=== PATIENT | female | born 1955 | race Caucasian/White ===

== ENCOUNTER 2017-07-11 16:10 | Inpatient (IN) ==
[2017-07-11] MEDS ORDERED: Ondansetron 4 MG/2 ML VIAL IVP ONE (17:03)
[2017-07-11] MEDS ORDERED: 0.9 % Sodium Chloride 1,000 ML IVC ONE (17:03)
[2017-07-11] MEDS ORDERED: *HR* FentaNYL (PF) 100 MCG/2 ML VIAL IVP ONE (17:03)
--- NOTE | 2017-07-11 17:06 | Emergency Department Note ---
Disposition Clinical Impression: Weakness Urinary tract infection Qualifiers: Urinary tract infection type: site unspecified Hematuria presence: without hematuria Qualified Code(s): N39.0 - Urinary tract infection, site not specified Urolithiasis Qualifiers: Urinary calculus location: ureter Qualified Code(s): N20.1 - Calculus of ureter Disposition: Admitted As Inpatient Condition: Undetermined Referrals: Joshua Arana MD [Primary Care Provider] - Forms: Work/School Release, ED Satisfaction Letter Abdominal Pain HPI - General Chief Complaint: ED Urogenital-Female Stated Complaint: flank pain Time Seen by Provider: 07/11/17 16:39 Source: patient Mode of arrival: ambulatory Limitations: no limitations Nursing Notes Reviewed: Yes Vital Signs Reviewed: Yes - History of Present Illness HPI Narrative: 62-year-old female with history of UTI, right [facility] emergency department complaining of right flank pain radiating down into her right lower quadrant. The patient states she has had associated nausea and vomiting as well as diarrhea. Patient denies any fevers that are measured but definitely notes chills. The patient says she has been falling over the past couple days as well. The patient has no obvious signs of trauma on her face and neck and complains of no associated head or neck pain. The patient denies any black or bloody stools. The patient states that this does not feel like her previous UTIs in the past. Patient denies any other complaints at this time. The patient is slightly somnolent but easily arousable. She states she feels very weak at this time. We will perform labs and imaging on the patient. Pt Subjective Complaint: abdominal pain Onset (ago): day(s) (1.5) Consistency: constant, Worsening Location: RLQ, R flank Pain Severity: moderate, severe Pain Scale: 10 Quality: stabbing Radiation: none Migration to: no migration Improves with: nothing Worsens with: nothing Associated symptoms: Reports: nausea, vomiting, diarrhea, chills, anorexia. Denies: fever - Related Data Home Medications Medication Instructions Recorded Confirmed ARIPiprazole [Abilify] 2 mg PO HS 02/18/17 02/18/17 FLUoxetine HCl [Prozac] 20 mg PO DAILY 02/18/17 02/18/17 HYDROcodone/Acet 5/325 mg [[place] 1 tab PO BID PRN 02/18/17 02/18/17 5-325 mg] Metoprolol [Lopressor] 25 mg PO BID 02/18/17 02/18/17 Promethazine [Phenergan] 25 mg PO TID PRN 02/18/17 02/18/17 Ranitidine HCl [Zantac] 150 mg PO BID 02/18/17 02/18/17 amLODIPine [Norvasc] 5 mg PO DAILY 02/18/17 02/18/17 clonazePAM [Klonopin] 0.5 mg PO QID PRN 02/18/17 02/18/17 Previous Rx's Medication Instructions Recorded Clindamycin [Cleocin] 150 mg PO Q6HR #7 capsule 02/17/17 HYDROcodone/Acet 5/325 mg [[place] 1 tab PO Q6H PRN #14 tab 02/17/17 5-325 mg] Allergies Allergy/AdvReac Type Severity Reaction Status Date / Time codeine AdvReac See Verified 07/11/17 16:21 Comments naproxen AdvReac See Verified 07/11/17 16:21 Comments Oxycodone AdvReac See Verified 07/11/17 16:21 Comments All systems ED: reviewed and negative except as stated. Constitutional: Reports: chills, weakness. Denies: fever, weight change Eyes: Denies: eye pain, eye discharge, vision change ENT ED: Denies: ear pain, throat pain, dental pain, hearing loss, epistaxis, congestion, dysphagia Cardiovascular: Denies: chest pain, palpitations, dyspnea on exertion, edema, syncope Respiratory: Denies: cough, dyspnea, wheezes, hemoptysis, stridor Gastrointestinal: Reports: abdominal pain, nausea, vomiting, diarrhea. Denies: constipation, hematemesis, melena, hematochezia Genitourinary: Reports: dysuria. Denies: urgency, frequency, hematuria, discharge Musculoskeletal: Denies: back pain, neck pain, arthralgia, myalgia Integumentary: Denies: rash, abrasion, lesions Neurological: Reports: weakness. 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 Psychiatric history: Reports: anxiety, depression, panic disorder - Social History Smoking status: Former smoker Alcohol use: Reports: none Drug use: Reports: none Physical Exam - General Limitations: no limitations General appearance: alert, in no apparent distress, other (Slightly somnolent) - Head Head exam: atraumatic, normocephalic, normal inspection - Eye Eye exam: Present: normal appearance, PERRL, EOMI - ENT ENT exam: normal exam, normal oropharynx, mucous membranes moist - Neck Neck exam: Present: normal inspection, full ROM, trachea midline - Chest Chest inspection: Present: normal inspection, symmetric chest wall rise - Respiratory Respiratory exam: Present: normal lung sounds bilaterally - Cardiovascular Cardiovascular exam: Present: normal rhythm, tachycardia, normal heart sounds - Abdominal Exam Abdominal exam: Present: soft, tenderness. Absent: distention, guarding, rebound, rigidity, pulsatile mass, hernia Abdominal tenderness: Present: RUQ, RLQ, moderate, severe - Extremities Exam Extremities exam: Present: normal inspection, full ROM. Absent: tenderness, pedal edema Course - Consultations Consultation #1: I spoke with Dr. Rivero in urology who agreed that he will likely see the patient will floor upon admission. He had no further recommendations at this time. Time: 18:51 Vital Signs Temperature 99.3 F 07/11/17 16:18 Pulse Rate 108 07/11/17 16:18 Respiratory Rate 16 07/11/17 16:18 Blood Pressure 154/80 07/11/17 16:18 O2 Sat by Pulse Oximetry 96 07/11/17 16:18 Temperature 99.3 F 07/11/17 16:18 Pulse Rate 108 07/11/17 17:26 Respiratory Rate 18 07/11/17 17:26 Blood Pressure 121/76 07/11/17 17:26 O2 Sat by Pulse Oximetry 96 07/11/17 16:18 Abdominal Pain - MDM Narrative Medical decision making narrative: Patient has a 3 mm obstructing stone noted on CT scan. The patient also was noted to have a urinary tract infection with leukocytosis. There is no lactic acidosis that is elevated. We will admit the patient to the hospitalist at this time. Urology will be consulted on the patient. The patient was given 1 g Rocephin. The patient is otherwise well-appearing at this time. CT scan of the head demonstrates no acute process. The patient was also noted to have a common bile duct dilation on CT scan of unknown origin. The patient has a history of cholecystectomy. Patient made aware and agrees to plan. Family, granddaughters, made aware as well and also agreed to plan. No further recommendations. Accepted by Dr. Arias. - Lab Data Lab results reviewed: Yes I reviewed the patient's lab results. Result diagrams: 07/11/17 17:22 07/11/17 17:22 Lab Results 07/11/17 07/11/17 07/11/17 Range/Units 17:22 17:22 17:22 WBC 13.6 H (4.3-11.1) K/mcL RBC 4.39 (3.82-4.97) M/mcL Hgb 12.9 (11.5-15.4) g/dL Hct 38.8 (35.3-44.9) % MCV 88.4 (83.0-100.0) fL MCH 29.4 (28.0-33.3) pg MCHC 33.2 (31.6-35.5) g/dL RDW 13.8 (11.5-14.5) % Plt Count 224 (140-400) K/mcL MPV 10.8 (9.4-12.4) fL Immature Gran % 0.4 (0-4) % Seg Neutrophils % 87.5 % Lymphocytes % 4.5 % Monocytes % 7.5 % Eosinophils % 0.0 % Basophils % 0.1 % Neutrophils # 11.9 H (1.6-8.9) K/mcL Lymphocytes # 0.6 (0.6-4.6) K/mcL Monocytes # 1.0 (0.0-1.3) K/mcL Eosinophils # 0.0 (0.0-0.6) K/mcL Basophils # 0.0 (0.0-0.2) K/mcL Sodium 134 L (136-145) mEq/L Potassium 3.7 (3.5-4.5) mEq/L Chloride 102 (98-109) mEq/L Carbon Dioxide 23 (19-29) mEq/L BUN 10 (7-20) mg/dL Creatinine 0.84 (0.57-1.11) mg/dL Est GFR ( Amer) > 60 (> 60) Est GFR (Non-Af Amer) > 60 (> 60) BUN/Creatinine Ratio 12 (6-26) Glucose 120 H (70-99) mg/dL Calculated Osmolality 278 L (280-300) Lactic Acid 1.8 (0.5-2.2) mmol/L Calcium 9.8 (8.6-10.8) mg/dL Total Bilirubin 0.7 (0.2-1.2) mg/dL AST 9 (5-34) Units/L ALT 8 (0-55) Units/L Alkaline Phosphatase 80 (38-126) Units/L Serum Total Protein 7.2 (6.0-8.3) g/dL Albumin 2.8 L (3.5-5.0) g/dL Globulin 4.4 H (2.4-3.5) g/dL Albumin/Globulin Ratio 0.6 L (1.1-2.2) Lipase < 10 (8-78) Units/L Urine Color (Yellow) Urine Clarity (Clear) Urine pH (5.0-8.0) pH Units Ur Specific [place] (1.010-1.025) Urine Protein (Neg-Trace) mg/dL Urine Glucose (UA) (Normal) mg/dL Urine Ketones (Negative) mg/dL Urine Blood (Negative) Urine Nitrite (Negative) Urine Bilirubin (Negative) Urine Urobilinogen (Normal) mg/dL Ur Leukocyte Esterase (Negative) Urine Microscopic RBC (0-3) per hpf Urine Microscopic WBC (0-3) per hpf Ur Squamous Epith Cells (None-Few) per lpf Urine Bacteria (None-Few) per hpf Hyaline Casts (None-Few) per lpf Ur Culture Indicated? (NO) 07/11/17 Range/Units 17:45 WBC (4.3-11.1) K/mcL RBC (3.82-4.97) M/mcL Hgb (11.5-15.4) g/dL Hct (35.3-44.9) % MCV (83.0-100.0) fL MCH (28.0-33.3) pg MCHC (31.6-35.5) g/dL RDW (11.5-14.5) % Plt Count (140-400) K/mcL MPV (9.4-12.4) fL Immature Gran % (0-4) % Seg Neutrophils % % Lymphocytes % % Monocytes % % Eosinophils % % Basophils % % Neutrophils # (1.6-8.9) K/mcL Lymphocytes # (0.6-4.6) K/mcL Monocytes # (0.0-1.3) K/mcL Eosinophils # (0.0-0.6) K/mcL Basophils # (0.0-0.2) K/mcL Sodium (136-145) mEq/L Potassium (3.5-4.5) mEq/L Chloride (98-109) mEq/L Carbon Dioxide (19-29) mEq/L BUN (7-20) mg/dL Creatinine (0.57-1.11) mg/dL Est GFR ( Amer) (> 60) Est GFR (Non-Af Amer) (> 60) BUN/Creatinine Ratio (6-26) Glucose (70-99) mg/dL Calculated Osmolality (280-300) Lactic Acid (0.5-2.2) mmol/L Calcium (8.6-10.8) mg/dL Total Bilirubin (0.2-1.2) mg/dL AST (5-34) Units/L ALT (0-55) Units/L Alkaline Phosphatase (38-126) Units/L Serum Total Protein (6.0-8.3) g/dL Albumin (3.5-5.0) g/dL Globulin (2.4-3.5) g/dL Albumin/Globulin Ratio (1.1-2.2) Lipase (8-78) Units/L Urine Color Yellow (Yellow) Urine Clarity Turbid A (Clear) Urine pH 5.5 (5.0-8.0) pH Units Ur Specific [place] 1.017 (1.010-1.025) Urine Protein 100 H (Neg-Trace) mg/dL Urine Glucose (UA) Normal (Normal) mg/dL Urine Ketones Negative (Negative) mg/dL Urine Blood Moderate H (Negative) Urine Nitrite Positive A (Negative) Urine Bilirubin Negative (Negative) Urine Urobilinogen Normal (Normal) mg/dL Ur Leukocyte Esterase Moderate H (Negative) Urine Microscopic RBC 15-30 H (0-3) per hpf Urine Microscopic WBC TNTC H (0-3) per hpf Ur Squamous Epith Cells Many H (None-Few) per lpf Urine Bacteria Many H (None-Few) per hpf Hyaline Casts None Seen (None-Few) per lpf Ur Culture Indicated? YES A (NO) - Radiology Data Radiology results reviewed: Yes I reviewed the patient's radiology results. - EKG Data EKG attestation: Yes I reviewed and interpreted this EKG. EKG results narrative: Heart rate 10 7 bpm. DE interval 138 ms. QTc 42 ms. Normal axis. Sinus tachycardia. No ST elevation or ST depression noted. No acute changes with the exception of new sinus tachycardia. Attestation Statement - Attestation Attestation: Patient was seen with resident physician. I reviewed the history, physical, assessment and plan, and agree with the findings. I also personally evaluated this patient and had [id number] time with this patient. 62-year-old female presents to the emergency department with chief complaint of right-sided abdominal pain. Patient states that the pain has been ongoing for last several days. She is recent history of UTI. She has had some nausea without vomiting no diarrhea. She denies fevers or chills. Patient also notes he she has had multiple falls over the last week or so falling approximately 3 times she is not sure if she lost consciousness but she says she does not think so. She is not sure why she has been falling more recently. On examination vital signs are stable. ENT is demonstrates a mild bruise at the bridge of the nose and also over the left cheek bone. There is no step-offs is no tenderness to palpation. Neck is nontender to palpation back is nontender to palpation. Heart lungs are normal. Abdomen is soft there is tenderness especially in the right upper and lower quadrants. There is no guarding or rigidity. Extremities are unremarkable. Neurologically the patient is intact. [place] we will check labs including abdominal labs and a CT scan of the abdomen and pelvis to rule out abnormalities. CT scan revealed obstructing renal stone, additionally patient has UTI. Discussed the case with urology, will admit to internal medicine and have urology see patient in the hospital. Hemodynamically patient did well while in the emergency department but she will require antibiotic therapy and possible urologic intervention. We also treated the patient's nausea while in the emergency department. Agree with the resident physician assessment and plan.
[2017-07-11 17:31] LABS: Basophils % 0.1 %; Hematocrit 38.8 % (35.3-44.9); Hemoglobin 12.9 g/dL (11.5-15.4); Immature Granulocytes % 0.4 % (0-4); Lymphocytes # 0.6 K/mcL (0.6-4.6); Lymphocytes % 4.5 %; Mean Corpuscular HGB Conc 33.2 g/dL (31.6-35.5); Mean Corpuscular Hemoglobin 29.4 pg (28.0-33.3); Mean Corpuscular Volume 88.4 fL (83.0-100.0); Mean Platelet Volume 10.8 fL (9.4-12.4); Monocytes % 7.5 %; Neutrophils # 11.9 K/mcL (1.6-8.9); Platelet Count 224 K/mcL (140-400); Red Blood Count 4.39 M/mcL (3.82-4.97); Red Cell Distribution Width 13.8 % (11.5-14.5); Segmented Neutrophils % 87.5 %
[2017-07-11 17:46] LABS: Alanine Aminotransferase 8 Units/L (0-55); Albumin 2.8 g/dL (3.5-5.0); Albumin/Globulin Ratio 0.6 (1.1-2.2); Alkaline Phosphatase 80 Units/L (38-126); Aspartate Amino Transferase 9 Units/L (5-34); BUN/Creatinine Ratio 12 (6-26); Bilirubin,Total 0.7 mg/dL (0.2-1.2); Blood Urea Nitrogen 10 mg/dL (7-20); Calcium 9.8 mg/dL (8.6-10.8); Carbon Dioxide 23 mEq/L (19-29); Chloride 102 mEq/L (98-109); Globulin 4.4 g/dL (2.4-3.5); Glucose 120 mg/dL (70-99); Osmolality,Calculated 278 (280-300); Potassium 3.7 mEq/L (3.5-4.5); Sodium 134 mEq/L (136-145); Total Protein 7.2 g/dL (6.0-8.3); eGFR For African Americans > 60 (> 60); eGFR For Non-African Americans > 60 (> 60)
[2017-07-11 17:51] LABS: Lipase < 10 Units/L (8-78)
[2017-07-11 17:52] LABS: Bilirubin,Urine Negative (Negative); Blood,Urine Moderate (Negative); Clarity,Urine Turbid (Clear); Color,Urine Yellow (Yellow); Glucose,Urine (UA) Normal (Normal); Ketones,Urine Negative (Negative); Leukocyte Esterase,Urine Moderate (Negative); Nitrite,Urine Positive (Negative); PH,Urine 5.5 pH Units (5.0-8.0); Protein,Urine 100 mg/dL (Neg-Trace); Specific Gravity,Urine 1.017 (1.010-1.025); Urobilinogen,Urine Normal (Normal)
[2017-07-11 17:54] LABS: Bacteria,Urine Many per hpf (None-Few); Hyaline Casts,Urine None Seen per lpf (None-Few); RBC,Urine 15-30 per hpf (0-3); Squamous Epithelial Cell,Urine Many per lpf (None-Few); WBC,Urine TNTC per hpf (0-3)
[2017-07-11] MEDS ORDERED: Lidocaine -MPF 2% 2 ML VIAL ONE (19:36)
[2017-07-11] MEDS ORDERED: Ondansetron 4 MG/2 ML VIAL ONE (19:36)
[2017-07-11] MEDS ORDERED: Dexamethasone 4 MG/ML VIAL ONE (19:36)
[2017-07-11] MEDS ORDERED: *HR* FentaNYL (PF) 100 MCG/2 ML VIAL ONE (19:37)
[2017-07-11] MEDS ORDERED: *HR* Propofol 200 MG/20 ML VIAL IVP ONE (19:37)
[2017-07-11] MEDS ORDERED: *HR* HYDROcodone/Acet 5/325 mg TABLET PO PRN (20:02)
[2017-07-11] MEDS ORDERED: clonazePAM 0.5 MG TABLET PO PRN ×2 (20:02→22:12)
[2017-07-11] MEDS ORDERED: Naloxone 0.4 MG/ML INJ IVP PRN ×2 (20:03→22:12)
--- NOTE | 2017-07-11 20:03 | Urology - Consult Note ---
Date of Encounter: 07/11/17 Time of Encounter: 20:01 - Assessment and Plan (1) Urinary tract infection Current Visit: Yes Status: Acute Assessment and plan: 62-year-old woman with a urinary tract infection and obstructing ureteral stone. She has been given a dose of ceftriaxone. We'll follow up on her urine cultures. Qualifiers: Urinary tract infection type: site unspecified Hematuria presence: without hematuria Qualified Code(s): N39.0 - Urinary tract infection, site not specified (2) Urolithiasis Current Visit: Yes Status: Acute Assessment and plan: 62-year-old woman with a history of a right proximal ureteral stone. She has been admitted for IV antibiotic. Recommend proceeding with a cystoscopy and right ureteral stent placement. She was informed of the risks of the surgery which include but are not limited to bleeding, infection, injury to other structures, need for further procedures, stent irritation, need for open repair , need for nephrostomy tube, risks otherwise unforeseen, and the risk of anesthesia. She is willing to proceed. Qualifiers: Urinary calculus location: ureter Qualified Code(s): N20.1 - Calculus of ureter Urology CN:[facility] Consult date: 07/11/17 Reason for consult Urology: Other (Right ureteral stone) Requesting physician: Gregory Spears History of present illness: 62-year-old woman presents with concern for right flank pain and a urinary tract infection. The pain became very sharp today. It radiates to the groin on the right side. She has never had a pain like this before. She has noted some nausea associated with it. She feels very weak. She came to the emergency department. A CT scan was obtained which showed a 3 mm right proximal ureteral stone. In addition she had an elevated white blood cell count and concern for urinary tract infection. She was admitted for further care. Past Med Surg Social Fam HX - Past Medical History Medical history: GERD, hyperlipidemia, hypertension, migraine, seizures Psychiatric history: anxiety, depression, panic disorder - Social History Smoking Status: Former smoker Smokeless Tobacco Status: No Alcohol use: none Drug use: none - Family History Brother Hx Family Genitourinary Disorders: Yes (Kidney stones) Medications and Allergies Clindamycin [Cleocin] 150 mg PO Q6HR #7 capsule 02/17/17 [Rx] HYDROcodone/Acet 5/325 mg [[place] 5-325 mg] 1 tab PO Q6H PRN #14 tab 02/17/17 [Rx ] ARIPiprazole [Abilify] 2 mg PO HS 02/18/17 [History] FLUoxetine HCl [Prozac] 20 mg PO DAILY 02/18/17 [History] HYDROcodone/Acet 5/325 mg [[place] 5-325 mg] 1 tab PO BID PRN 02/18/17 [History] Metoprolol [Lopressor] 25 mg PO BID 02/18/17 [History] Promethazine [Phenergan] 25 mg PO TID PRN 02/18/17 [History] Ranitidine HCl [Zantac] 150 mg PO BID 02/18/17 [History] amLODIPine [Norvasc] 5 mg PO DAILY 02/18/17 [History] clonazePAM [Klonopin] 0.5 mg PO QID PRN 02/18/17 [History] 3 Allergy/AdvReac Type Severity Reaction Status Date / Time codeine AdvReac See Verified 07/11/17 16:21 Comments naproxen AdvReac See Verified 07/11/17 16:21 Comments Oxycodone AdvReac See Verified 07/11/17 16:21 Comments Review of Systems - Constitutional fatigue, no chills, no fever(s) - EENT Nose, mouth and throat: no dizziness - Cardiovascular no chest pain - Respiratory no dyspnea - Gastrointestinal nausea, no vomiting - Genitourinary Genitourinary: flank pain, no hematuria - Musculoskeletal no back pain - Integumentary no erythema, no rash - Neurological no weakness - Psychiatric no suicidal ideation - Hematologic/Lymphatic no easy bleeding - Allergic/Immunologic no wheezing Exam Initial Vital Signs Temp Pulse Resp BP Pulse Ox 99.3 F 108 16 154/80 96 07/11/17 16:18 07/11/17 16:18 07/11/17 16:18 07/11/17 16:18 07/11/17 16:18 - General physical appearance Present: well developed, well nourished, no distress - Eyes Absent: icteric - ENT Present: normal nares - Neck Present: trachea midline - Respiratory Present: normal respiratory effort - Cardiovascular Cardiovascular exam IM: RRR - Abdomen Abdomen: Present: soft Urology Results - Labs 07/11/17 17:22 07/11/17 17:22 Abnormal lab results WBC 13.6 K/mcL (4.3-11.1) H 07/11/17 17:22 Neutrophils # 11.9 K/mcL (1.6-8.9) H 07/11/17 17:22 Sodium 134 mEq/L (136-145) L 07/11/17 17:22 Glucose 120 mg/dL (70-99) H 07/11/17 17:22 Calculated Osmolality 278 (280-300) L 07/11/17 17:22 Albumin 2.8 g/dL (3.5-5.0) L 07/11/17 17:22 Globulin 4.4 g/dL (2.4-3.5) H 07/11/17 17:22 Albumin/Globulin Ratio 0.6 (1.1-2.2) L 07/11/17 17:22 Urine Clarity Turbid (Clear) A 07/11/17 17:45 Urine Protein 100 mg/dL (Neg-Trace) H 07/11/17 17:45 Urine Blood Moderate (Negative) H 07/11/17 17:45 Urine Nitrite Positive (Negative) A 07/11/17 17:45 Ur Leukocyte Esterase Moderate (Negative) H 07/11/17 17:45 Urine Microscopic RBC 15-30 per hpf (0-3) H 07/11/17 17:45 Urine Microscopic WBC TNTC per hpf (0-3) H 07/11/17 17:45 Ur Squamous Epith Cells Many per lpf (None-Few) H 07/11/17 17:45 Urine Bacteria Many per hpf (None-Few) H 07/11/17 17:45 Ur Culture Indicated? YES (NO) A 07/11/17 17:45 All other labs normal. - Imaging CT scan - abdomen: report reviewed, image reviewed CT scan - pelvis: report reviewed, image reviewed Consult Discharge Plan - Plan Referrals: Joshua Arana MD [Primary Care Provider] -
[2017-07-11] MEDS ORDERED: 0.9 % Sodium Chloride 1,000 ML IVC SCH (20:15)
--- NOTE | 2017-07-11 20:16 | Internal Med History&Physical ---
Date of Encounter: 07/11/17 Time of Encounter: 20:13 Assessment and Plan (1) Pyelonephritis, acute Current visit: Yes Status: Acute IVF, IV rocephin, urine cx pending (2) Urolithiasis Current visit: Yes Status: Acute seen by urology, pending surgical eval, NPO for now, IV morphine for pain control Qualifiers: Urinary calculus location: ureter Qualified Code(s): N20.1 - Calculus of ureter (3) HTN (hypertension), benign Current visit: Yes Status: Acute stable continue med Internal Medicine - H&P: HPI Chief complaint: Right flank pain History of present illness: Ms. Avelar is a 62 year old female with a hx of recurrent UTI who presents with clinical pyelonephritis and small right 3mm renal stone. She reports a hx of recurrent UTI and presents with a few days hx of right flank pain described as sharp, 10/10, little radiation. Reported subjective chills/fevers in the last few days. Noted dysuria on urination. ED d/w urology Dr Rivero with plans for surgical management of stone disease CT/CT head/brain wo con IMPRESSION: No acute intracranial abnormality. CT/CT abd pelvis wo no iv no oral IMPRESSION: Obstructing 3 mm proximal right ureteral stone with mild right hydronephrosis and right perinephric inflammatory changes consistent with acute obstructive uropathy. Dilated common bile duct of uncertain etiology. Recommend correlation with LFTs. Past Med Surg Social Fam HX - Past Medical History Medical history: GERD, hyperlipidemia, hypertension, migraine, seizures Psychiatric history: anxiety, depression, panic disorder - Social History Smoking Status: Former smoker Smokeless Tobacco Status: No Alcohol use: none Drug use: none - Family History Brother Hx Family Genitourinary Disorders: Yes (Kidney stones) Internal Medicine - H&P: Meds Clindamycin [Cleocin] 150 mg PO Q6HR #7 capsule 02/17/17 [Rx] HYDROcodone/Acet 5/325 mg [[place] 5-325 mg] 1 tab PO Q6H PRN #14 tab 02/17/17 [Rx ] ARIPiprazole [Abilify] 2 mg PO HS 02/18/17 [History] FLUoxetine HCl [Prozac] 20 mg PO DAILY 02/18/17 [History] HYDROcodone/Acet 5/325 mg [[place] 5-325 mg] 1 tab PO BID PRN 02/18/17 [History] Metoprolol [Lopressor] 25 mg PO BID 02/18/17 [History] Promethazine [Phenergan] 25 mg PO TID PRN 02/18/17 [History] Ranitidine HCl [Zantac] 150 mg PO BID 02/18/17 [History] amLODIPine [Norvasc] 5 mg PO DAILY 02/18/17 [History] clonazePAM [Klonopin] 0.5 mg PO QID PRN 02/18/17 [History] 3 Allergy/AdvReac Type Severity Reaction Status Date / Time codeine AdvReac See Verified 07/11/17 16:21 Comments naproxen AdvReac See Verified 07/11/17 16:21 Comments Oxycodone AdvReac See Verified 07/11/17 16:21 Comments All Systems PM: A 10-system review of systems was performed and is negative for pertinent findings except as documented above in the HPI. Review of systems: ROS 14 point review of systems reviewed as best as possible given presentation. Pertinent positive or negative as per HPI or otherwise reviewed as negative - Constitutional Vitals: Temp Pulse Resp BP Pulse Ox 100.8 F H 101 16 99/63 92 07/11/17 20:05 07/11/17 20:05 07/11/17 20:05 07/11/17 20:05 07/11/17 20:05 Exam: General - AAO x 3 Psych - Appropriate affect/speech. No agitation Eyes - IVETTE. Eye lids intact. No scleral icterus Neuro - No gross peripheral or central neuro deficits Heart - Sinus. RRR. S1 and S2 present. No added HS/murmurs appreciated. No elevated JVD appreciated. Lung - Adequate air entry b/l, No crackles/wheezes appreciated GI - Soft, non-tender. No hepatosplenomegaly/ascites. BS+ - right flank pain. No suprapubic pain Skin - Intact. No rash/petechiae/ecchymosis. Warm extremities MSK - Joints with normal ROM. No joint swellings Internal Med - H&P Results - Labs CBC & Chem 7: 07/11/17 17:22 07/11/17 17:22
[2017-07-11] MEDS ORDERED: *HR* Morphine 2 MG/ML SYRINGE IVP PRN ×2 (20:19→22:12)
--- NOTE | 2017-07-11 20:27 | Anesthesia Evaluation PreOp ---
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: Seizures (remote), Other (anxiety, depression) Other Medical History: Renal (stones) Anesthesia History: No Prior Anesthetic Complications Alcohol Use: none Drug use: none Medications and Allergies Clindamycin [Cleocin] 150 mg PO Q6HR #7 capsule 02/17/17 [Rx] HYDROcodone/Acet 5/325 mg [[place] 5-325 mg] 1 tab PO Q6H PRN #14 tab 02/17/17 [Rx ] ARIPiprazole [Abilify] 2 mg PO HS 02/18/17 [History] FLUoxetine HCl [Prozac] 20 mg PO DAILY 02/18/17 [History] HYDROcodone/Acet 5/325 mg [[place] 5-325 mg] 1 tab PO BID PRN 02/18/17 [History] Metoprolol [Lopressor] 25 mg PO BID 02/18/17 [History] Promethazine [Phenergan] 25 mg PO TID PRN 02/18/17 [History] Ranitidine HCl [Zantac] 150 mg PO BID 02/18/17 [History] amLODIPine [Norvasc] 5 mg PO DAILY 02/18/17 [History] clonazePAM [Klonopin] 0.5 mg PO QID PRN 02/18/17 [History] 3 Allergy/AdvReac Type Severity Reaction Status Date / Time codeine AdvReac See Verified 07/11/17 16:21 Comments naproxen AdvReac See Verified 07/11/17 16:21 Comments Oxycodone AdvReac See Verified 07/11/17 16:21 Comments - Meds/Allergy Pre-op Review Medications Reviewed: Yes Allergies Reviewed: Yes Beta Blockers on Current Med List: Yes Anesthesia Results - Labs 07/11/17 17:22 07/11/17 17:22 - Imaging EKG: report reviewed, image reviewed (SR; marked LAD) Anesthesia Exam Last Vital Signs Temp 100.8 F H 07/11/17 20:05 Pulse 101 07/11/17 20:05 Resp 16 07/11/17 20:05 BP 99/63 07/11/17 20:05 Pulse Ox 92 07/11/17 20:05 Weight: 46 kg NPO (# of Hours): >> 8 hrs - HEENT Pupil (Motor): Pupils equal, EOMI Mallampati: II Teeth: Edentulous Oral Opening: Greater than 3 - ACCOUNTING RECRUITER LOC: Oriented ACCOUNTING RECRUITER Motor: Normal RUE, Normal LUE, Normal RLE, Normal LLE, Normal Face - Cardiac Rhythm: Regular Murmur: None - Pulmonary Breath Sounds: bilateral Clear Respiratory Effort: Symmetrical Anesthesia Assess/Plan ASA Score: 2 Modified [place] Scale for Level of Consciousness: Cooperative, oriented, and tranquil Anesthetic Plan: General Monitoring Plan: Standard Monitors Recovery Plan: PACU
--- NOTE | 2017-07-11 20:31 | Operative Note ---
Date of procedure: 07/11/17 Pre-op diagnosis: Right ureteral stone Post-op diagnosis: same Procedure: Cystoscopy, right ureteral stent placement. Implants: 6 Filipino by 24 cm double-J stent. Complications: none. Anesthesia: MAIRA Surgeon: Fausto Rivero Estimated blood loss (cc): 1 Specimen: Right renal aspirate for culture Condition: stable Disposition: PACU Procedure in Detail: Indications: Karen is a 62-year-old woman who has a history of nephrolithiasis. She had a CT which showed a right proximal ureteral stone and there is concern for a urinary tract infection. She elected to undergo a cystoscopy and right ureteral stent placement. She was aware of the risks of the procedure including but not limited to bleeding, infection, injury to other structures, need for further procedures, stent irritation, need for nephrostomy tube, need for open repair, risks otherwise unforeseen, and the risk of anesthesia. She is willing to proceed. Procedure in Detail: After informed consent was obtained the patient was brought back to the operating room and placed in supine position. A time out was performed. General anesthesia was administered and an endotracheal tube was placed. She was then placed in the lithotomy position. She was prepped and draped in the usual sterile fashion. Cystoscopy was performed. The anterior urethra was normal. There was no evidence of bladder tumors. The ureteral orifices were in the normal orthotopic position. There was no duplication of the ureteral orifices. The Zip wire was placed in the right ureteral orifice and brought into the kidney under fluoroscopic guidance. The open-ended catheter was placed over the wire into the kidney. An aspirate of urine from the kidney was obtained. A retrograde pyelogram was performed. The wire was then brought up into the kidney under fluoroscopic guidance. The open ended catheter was removed. A 6 Filipino by 24cm JJ stent was then placed. The dangle strings were removed. A Xiong catheter was then placed. The patient was then awakened from general anesthesia and brought to recovery room in good condition. All sponge, needle, and instrument counts were correct.
[2017-07-11] MEDS ORDERED: *HR* Phenylephrine 10 MG/ML VIAL ONE (20:48)
[2017-07-11] MEDS ORDERED: ARIPiprazole 2 MG TABLET PO SCH (21:00)
[2017-07-11] MEDS ORDERED: Famotidine 20 MG TABLET PO SCH (21:00)
[2017-07-11] MEDS ORDERED: *HR* Promethazine 25 MG/ML VIAL IVP PRN (21:25)
[2017-07-11] MEDS ORDERED: *HR* HYDROmorphone (PF) 1 MG/ML SYRINGE IVP PRN (21:25)
[2017-07-11] MEDS ORDERED: *HR* HYDROmorphone (PF) 1 MG/ML SYRINGE ONE (21:30)
[2017-07-11] MEDS ORDERED: *HR* Meperidine 25 MG/ML SYRINGE ONE (21:45)
[2017-07-11] MEDS ORDERED: Ringers Solution, Lactated 1,000 ML ONE (21:47)
[2017-07-11] MEDS ORDERED: Acetaminophen IV 1,000 MG/100 ML INFUS..BTL ONE (21:47)
--- NOTE | 2017-07-11 22:03 | Anesthesia Evaluation Post Op ---
Date of Encounter: 07/11/17 Time of Encounter: 22:03 - Vital Signs Vital Signs: Last Vital Signs Temp 101.5 F H 07/11/17 21:45 Pulse 108 07/11/17 21:55 Resp 30 07/11/17 21:55 BP 97/60 07/11/17 21:55 Pulse Ox 95 07/11/17 21:55 - Lungs Lungs: Clear Ascult./Percussion - Airway Airway: Non-obstructed - Cardiovascular Regular Rate - Mental Status Mental Status: Alert & Oriented, Answers Appropriately - Pain Pain Scale: 3 - Nausea Vomiting Nausea Vomiting: Not Present - Hydration Hydration: NPO, Xiong catheter - Discharge PostOp Status: Transfer Patient to floor
[2017-07-11] MEDS: *HR* HYDROcodone/Acet 5/325 mg TABLET PO PRN (22:56)
[2017-07-11] MEDS: 0.9 % Sodium Chloride 1,000 ML IVC SCH (23:01)
[2017-07-12 04:42] LABS: Basophils % 0.1 %; Hematocrit 31.7 % (35.3-44.9); Immature Granulocytes % 0.7 % (0-4); Lymphocytes # 0.7 K/mcL (0.6-4.6); Lymphocytes % 4.9 %; Mean Corpuscular HGB Conc 34.1 g/dL (31.6-35.5); Mean Corpuscular Hemoglobin 30.7 pg (28.0-33.3); Mean Corpuscular Volume 90.1 fL (83.0-100.0); Mean Platelet Volume 10.7 fL (9.4-12.4); Monocytes # 0.9 K/mcL (0.0-1.3); Monocytes % 5.7 %; Neutrophils # 13.2 K/mcL (1.6-8.9); Platelet Count 191 K/mcL (140-400); Red Blood Count 3.52 M/mcL (3.82-4.97); Red Cell Distribution Width 14.3 % (11.5-14.5); Segmented Neutrophils % 88.6 %
[2017-07-12 04:45] LABS: Hemoglobin 10.8 g/dL (11.5-15.4)
[2017-07-12 04:58] LABS: Alanine Aminotransferase 7 Units/L (0-55); Albumin/Globulin Ratio 0.6 (1.1-2.2); Alkaline Phosphatase 65 Units/L (38-126); Aspartate Amino Transferase 9 Units/L (5-34); BUN/Creatinine Ratio 12 (6-26); Bilirubin,Direct 0.2 mg/dL (0.0-0.5); Bilirubin,Indirect 0.2 mg/dL (0.0-1.2); Bilirubin,Total 0.4 mg/dL (0.2-1.2); Blood Urea Nitrogen 9 mg/dL (7-20); Calcium 8.9 mg/dL (8.6-10.8); Carbon Dioxide 24 mEq/L (19-29); Chloride 106 mEq/L (98-109); Globulin 3.6 g/dL (2.4-3.5); Glucose 142 mg/dL (70-99); Osmolality,Calculated 285 (280-300); Potassium 4.1 mEq/L (3.5-4.5); Sodium 137 mEq/L (136-145); Total Protein 5.8 g/dL (6.0-8.3); eGFR For African Americans > 60 (> 60); eGFR For Non-African Americans > 60 (> 60)
[2017-07-12 05:01] LABS: Albumin 2.2 g/dL (3.5-5.0)
[2017-07-12] MEDS ORDERED: *HR* Enoxaparin 40 MG/0.4 ML SYRINGE SQ SCH (06:00)
[2017-07-12] MEDS: *HR* Enoxaparin 40 MG/0.4 ML SYRINGE SQ SCH (06:17)
[2017-07-12] MEDS: *HR* HYDROcodone/Acet 5/325 mg TABLET PO PRN (07:23)
[2017-07-12] MEDS ORDERED: Famotidine 20 MG TABLET PO SCH (07:30)
--- NOTE | 2017-07-12 07:32 | Urology Progress Note ---
Date of Encounter: 07/12/17 Time of Encounter: 07:30 - Assessment and Plan (1) Urinary tract infection Current Visit: Yes Status: Acute Assessment and plan: 62 year old woman with a urinary tract infection and obstructing stone. Recommend continuing the catheter for now until afebriel x 24 hours. Qualifiers: Urinary tract infection type: site unspecified Hematuria presence: without hematuria Qualified Code(s): N39.0 - Urinary tract infection, site not specified (2) Urolithiasis Current Visit: Yes Status: Acute Assessment and plan: s/p right ureteral stent placement, POD #1. 1. Fever overnight. Continue antibiotics. Await final urine culture results. Will treat stone as an outpatient once infection has cleared. Qualifiers: Urinary calculus location: ureter Qualified Code(s): N20.1 - Calculus of ureter Progress Note Narrative: 62 year old woman with infected, obstructed right ureteral stone status post right ureteral stent, POD #1. She had a fever last night after surgery. Urine has been clear. Objective Initial Vital Signs Temp Pulse Resp BP Pulse Ox 99.3 F 108 16 154/80 96 07/11/17 16:18 07/11/17 16:18 07/11/17 16:18 07/11/17 16:18 07/11/17 16:18 - General physical appearance Present: well developed, well nourished, no distress - Respiratory Present: normal respiratory effort - Abdomen Present: soft - Genitourinary Urine Appearance: Present: Clear - Labs 07/12/17 04:34 07/12/17 04:34 Diabetes panel 07/12/17 Range/Units 04:34 Sodium 137 (136-145) mEq/L Potassium 4.1 (3.5-4.5) mEq/L Chloride 106 (98-109) mEq/L Carbon Dioxide 24 (19-29) mEq/L BUN 9 (7-20) mg/dL Creatinine 0.78 (0.57-1.11) mg/dL Glucose 142 H (70-99) mg/dL Calcium 8.9 (8.6-10.8) mg/dL AST 9 (5-34) Units/L ALT 7 (0-55) Units/L Alkaline Phosphatase 65 (38-126) Units/L Albumin 2.2 L D (3.5-5.0) g/dL Calcium panel 07/12/17 Range/Units 04:34 Calcium 8.9 (8.6-10.8) mg/dL Albumin 2.2 L D (3.5-5.0) g/dL Pituitary panel 07/12/17 Range/Units 04:34 Sodium 137 (136-145) mEq/L Potassium 4.1 (3.5-4.5) mEq/L Chloride 106 (98-109) mEq/L Carbon Dioxide 24 (19-29) mEq/L BUN 9 (7-20) mg/dL Creatinine 0.78 (0.57-1.11) mg/dL Glucose 142 H (70-99) mg/dL Calcium 8.9 (8.6-10.8) mg/dL Adrenal panel 07/12/17 Range/Units 04:34 Sodium 137 (136-145) mEq/L Potassium 4.1 (3.5-4.5) mEq/L Chloride 106 (98-109) mEq/L Carbon Dioxide 24 (19-29) mEq/L BUN 9 (7-20) mg/dL Creatinine 0.78 (0.57-1.11) mg/dL Glucose 142 H (70-99) mg/dL Calcium 8.9 (8.6-10.8) mg/dL Total Bilirubin 0.4 (0.2-1.2) mg/dL AST 9 (5-34) Units/L ALT 7 (0-55) Units/L Alkaline Phosphatase 65 (38-126) Units/L Albumin 2.2 L D (3.5-5.0) g/dL - VTE Documentation of Mechanical Device: Intermittent pneumatic compression device Consult Discharge Plan - Plan Referrals: Joshua Arana MD [Primary Care Provider] -
[2017-07-12] MEDS ORDERED: amLODIPine 5 MG TABLET PO SCH ×2 (09:00)
[2017-07-12] MEDS ORDERED: FLUoxetine 20 MG CAPSULE PO SCH ×2 (09:00)
[2017-07-12] MEDS ORDERED: Aminoglycoside Consult 1 EACH MC ONE (12:52)
[2017-07-12] MEDS ORDERED: Acetaminophen 325 MG TABLET PO ONE (15:26)
--- NOTE | 2017-07-12 16:31 | Internal Med Progress Note ---
Date of Encounter: 07/12/17 Time of Encounter: 14:00 - Assessment and plan (1) Sepsis Current Visit: Yes Status: Acute Assessment and plan: Pt does meet sepsis criteria with Fever, elevated WBC, Source of inf as UTI, Pyelonephritis + Bronchitis Changed abx to Zosyn Will do blood cx cont IV fluids Qualifiers: Qualified Code(s): A41.9 - Sepsis, unspecified organism (2) Acute respiratory failure with hypoxia Current Visit: Yes Status: Acute Assessment and plan: currently on 2 lit O2 Mostly due to acute bronchitis will get a CXR Duoneb Q4hr Sputum cx Abx Zosyn + If I see any infiltrates on CXR will add Levofloxacin for atypical coverage (3) Acute purulent bronchitis Current Visit: Yes Status: Acute Assessment and plan: see above (4) Urinary tract infection Current Visit: Yes Status: Acute Assessment and plan: changed abx to Zosyn Qualifiers: Urinary tract infection type: site unspecified Hematuria presence: without hematuria Qualified Code(s): N39.0 - Urinary tract infection, site not specified (5) Urolithiasis Current Visit: Yes Status: Acute Assessment and plan: s/p Cystoscopy and Rt ureter stent placement Urology on board Qualifiers: Urinary calculus location: ureter Qualified Code(s): N20.1 - Calculus of ureter (6) Pyelonephritis, acute Current Visit: Yes Status: Acute Assessment and plan: see above (7) HTN (hypertension), benign Current Visit: Yes Status: Acute (8) Tobacco dependence Current Visit: Yes Status: Acute Assessment and plan: counseled to quit smoking on nicotine patch - Subjective Interval history: Ms. Avelar is a 62 year old female with a hx of recurrent UTI who presents with clinical pyelonephritis and small right 3mm renal stone. She reports a hx of recurrent UTI and presents with a few days hx of right flank pain described as sharp, 10/10, little radiation. Reported subjective chills/fevers in the last few days. Noted dysuria on urination. ED d/w urology Dr Rivero with plans for surgical management of stone disease. Pt was admitted in the hospital for acute pyelonephritis and started her on empirical abx. She did go for cystoscopy with Rt ureter stent placement y/d. Today she still has fever spikes. Did c/o cough with expectoration. Denied any CP. Still has mild Rt flank pain. - Constitutional Vitals: Temp Pulse Resp BP Pulse Ox 102.3 F H 107 22 111/67 94 07/12/17 15:40 07/12/17 15:40 07/12/17 15:40 07/12/17 15:40 07/12/17 15:40 General appearance: Present: A&O X 3, no acute distress, answers questions appropriately Exam: looks lethargic and weak - Head Head exam: Present: atraumatic, normal inspection - Respiratory Respiratory exam: Present: decreased breath sounds, rhonchi (mild), wheezes. Absent: rales, respiratory distress - Cardiovascular Cardiovascular exam: Present: RRR, +S1, +S2. Absent: systolic murmur - GI/Abdominal GI/Abdominal exam: Present: normal bowel sounds, soft. Absent: distended, rebound, rigid, tenderness - Extremities Exam Extremities exam: Absent: calf tenderness, pedal edema, tenderness - Back Exam Back exam: Present: CVA tenderness (R). Absent: CVA tenderness (L) - Neurological Exam Neurological exam: Present: alert, oriented X3 - Psychiatric Psychiatric exam: Present: normal affect, normal mood Internal Medicine: Result - Labs CBC & Chem 7: 07/12/17 04:34 07/12/17 04:34 Labs: Short CBC 07/12/17 Range/Units 04:34 WBC 14.9 H (4.3-11.1) K/mcL Hgb 10.8 L D (11.5-15.4) g/dL Hct 31.7 L (35.3-44.9) % Plt Count 191 (140-400) K/mcL Neutrophils # 13.2 H (1.6-8.9) K/mcL BMP 07/12/17 04:34 Sodium 137 Potassium 4.1 Chloride 106 Carbon Dioxide 24 BUN 9 Creatinine 0.78 Glucose 142 H Calcium 8.9 Liver Function 07/12/17 Range/Units 04:34 Total Bilirubin 0.4 (0.2-1.2) mg/dL Direct Bilirubin 0.2 (0.0-0.5) mg/dL AST 9 (5-34) Units/L ALT 7 (0-55) Units/L Alkaline Phosphatase 65 (38-126) Units/L Albumin 2.2 L D (3.5-5.0) g/dL - VTE Documentation of Mechanical Device: Intermittent pneumatic compression device Consult Discharge Plan - Plan Referrals: Joshua Arana MD [Primary Care Provider] -
--- NOTE | 2017-07-12 17:46 | Electrocardiograph Report ---
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
[2017-07-12] MEDS ORDERED: 0.9 % Sodium Chloride 1,000 ML IVC ONE (19:52)
[2017-07-12] MEDS ORDERED: 0.9 % Sodium Chloride 1,000 ML ONE (19:55)
[2017-07-12] MEDS ORDERED: Vancomycin 750 MG in D5% in Water 250 ML IVPB SCH (20:00)
[2017-07-12 20:21] LABS: ABG Base Excess -0.6 mEq/L (-2.0 to 3.0); ABG HCO3 23 mEq/L (21-27); ABG Oxygen Saturation 90 % (95-98); ABG PCO2 32 mmHg (35-45); ABG PH 7.46 pH Units (7.32-7.45); ABG PO2 55 mmHg (85-104); ABG TCO2 23.8 mEq/L (20-26)
[2017-07-12] MEDS: Vancomycin 750 MG in D5% in Water 250 ML IVPB SCH (20:43)
[2017-07-12 20:50] LABS: Basophils % 0.2 %; Immature Granulocytes % 1.7 % (0-4); Lymphocytes # 1.3 K/mcL (0.6-4.6); Lymphocytes % 9.8 %; Mean Corpuscular HGB Conc 33.3 g/dL (31.6-35.5); Mean Corpuscular Hemoglobin 30.3 pg (28.0-33.3); Mean Corpuscular Volume 90.9 fL (83.0-100.0); Monocytes # 0.7 K/mcL (0.0-1.3); Monocytes % 5.7 %; Neutrophils # 10.6 K/mcL (1.6-8.9); Platelet Count 180 K/mcL (140-400); Red Cell Distribution Width 14.3 % (11.5-14.5); Segmented Neutrophils % 82.6 %
[2017-07-12] MEDS: ARIPiprazole 5 MG TABLET PO SCH (20:54)
[2017-07-12] MEDS: FLUoxetine 20 MG CAPSULE PO SCH (20:54)
[2017-07-12] MEDS: 0.9 % Sodium Chloride 1,000 ML IVC SCH ×3 (20:58→22:28)
[2017-07-12 20:59] LABS: Alanine Aminotransferase 8 Units/L (0-55); Albumin/Globulin Ratio 0.5 (1.1-2.2); Alkaline Phosphatase 66 Units/L (38-126); Aspartate Amino Transferase 11 Units/L (5-34); BUN/Creatinine Ratio 12 (6-26); Bilirubin,Total 0.3 mg/dL (0.2-1.2); Blood Urea Nitrogen 10 mg/dL (7-20); Calcium 8.2 mg/dL (8.6-10.8); Carbon Dioxide 22 mEq/L (19-29); Chloride 104 mEq/L (98-109); Globulin 3.4 g/dL (2.4-3.5); Glucose 132 mg/dL (70-99); Magnesium 1.1 mg/dL (1.6-2.6); Osmolality,Calculated 275 (280-300); Potassium 3.9 mEq/L (3.5-4.5); Sodium 132 mEq/L (136-145); Total Protein 5.2 g/dL (6.0-8.3); eGFR For African Americans > 60 (> 60); eGFR For Non-African Americans > 60 (> 60)
[2017-07-12] MEDS ORDERED: ARIPiprazole 2 MG TABLET PO SCH (21:00)
[2017-07-12 21:01] LABS: Albumin 1.8 g/dL (3.5-5.0)
[2017-07-12] MEDS ORDERED: Furosemide 40 MG/4 ML VIAL ONE (21:51)
[2017-07-12] MEDS ORDERED: Ipratropium/Albuterol Neb 3 ML IH PRN (21:58)
[2017-07-12] MEDS ORDERED: Furosemide 40 MG/4 ML VIAL IVP ONE (22:01)
[2017-07-12] MEDS ORDERED: Ipratropium/Albuterol Neb 3 ML ONE (22:02)
[2017-07-12] MEDS: Ipratropium/Albuterol Neb 3 ML IH SCH (22:10)
[2017-07-12 23:12] LABS: ABG Base Excess -2.6 mEq/L (-2.0 to 3.0); ABG HCO3 22 mEq/L (21-27); ABG Oxygen Saturation 99 % (95-98); ABG PCO2 35 mmHg (35-45); ABG PO2 127 mmHg (85-104); ABG TCO2 22.8 mEq/L (20-26)
[2017-07-13] MEDS: Ipratropium/Albuterol Neb 3 ML IH SCH ×7 (00:10→23:53)
[2017-07-13] MEDS: Acetaminophen 325 MG TABLET PO PRN (04:09)
[2017-07-13] MEDS: *HR* Enoxaparin 40 MG/0.4 ML SYRINGE SQ SCH (05:33)
[2017-07-13] MEDS ORDERED: Cefepime HCl 2,000 MG in D5% in Water (Mini-Bag+) 100 ML IVPB SCH (06:00)
[2017-07-13 07:26] LABS: Basophils % 0.1 %; Hematocrit 29.8 % (35.3-44.9); Hemoglobin 10.2 g/dL (11.5-15.4); Immature Granulocytes % 1.4 % (0-4); Lymphocytes # 0.9 K/mcL (0.6-4.6); Lymphocytes % 7.9 %; Mean Corpuscular HGB Conc 34.2 g/dL (31.6-35.5); Mean Corpuscular Hemoglobin 30.4 pg (28.0-33.3); Mean Platelet Volume 11.5 fL (9.4-12.4); Monocytes # 0.4 K/mcL (0.0-1.3); Monocytes % 4.1 %; Neutrophils # 9.3 K/mcL (1.6-8.9); Platelet Count 198 K/mcL (140-400); Red Blood Count 3.35 M/mcL (3.82-4.97); Red Cell Distribution Width 14.3 % (11.5-14.5); Segmented Neutrophils % 86.5 %
[2017-07-13 07:39] LABS: BUN/Creatinine Ratio 11 (6-26); Blood Urea Nitrogen 8 mg/dL (7-20); Calcium 8.5 mg/dL (8.6-10.8); Carbon Dioxide 23 mEq/L (19-29); Chloride 101 mEq/L (98-109); Glucose 136 mg/dL (70-99); Osmolality,Calculated 272 (280-300); Potassium 3.5 mEq/L (3.5-4.5); Sodium 131 mEq/L (136-145); eGFR For African Americans > 60 (> 60); eGFR For Non-African Americans > 60 (> 60)
[2017-07-13 08:26] LABS: Enterococcus by PCR Not Detected (Not Detect); Staphylococcus aureus by PCR Not Detected (Not Detect); Streptococcus agalactiae(B)PCR Not Detected (Not Detect); Streptococcus by PCR Not Detected (Not Detect); Streptococcus pneumoniae PCR Not Detected (Not Detect); blaKPC Carbapenem-Resist Gene Not Detected (Not Detect); mecA Methicillin-Resist Gene Not Detected (Not Detect); vanA/B Vancomycin-Resist Genes Not Detected (Not Detect)
[2017-07-13 08:27] LABS: Acinetobacter baumannii by PCR Not Detected (Not Detect); Streptococcus pyogenes (A) PCR Not Detected (Not Detect)
[2017-07-13 08:30] LABS: Candida albicans by PCR Not Detected (Not Detect); Candida glabrata by PCR Not Detected (Not Detect); Candida krusei by PCR Not Detected (Not Detect); Candida parapsilosis by PCR Not Detected (Not Detect); Candida tropicalis by PCR Not Detected (Not Detect); Escherichia coli by PCR ***DETECTED*** (Not Detect); Klebsiella oxytoca by PCR Not Detected (Not Detect); Klebsiella pneumoniae by PCR Not Detected (Not Detect); Pseudomonas aeruginosa by PCR Not Detected (Not Detect); Serratia marcescens by PCR Not Detected (Not Detect)
[2017-07-13] MEDS: FLUoxetine 20 MG CAPSULE PO SCH ×2 (08:40→21:14)
[2017-07-13] MEDS: Famotidine 20 MG TABLET PO SCH (08:40)
[2017-07-13] MEDS: *HR* HYDROcodone/Acet 5/325 mg TABLET PO PRN (09:34)
--- NOTE | 2017-07-13 10:34 | Internal Med Progress Note ---
<Gregory Mitchell - Last Filed: 07/13/17 16:00> Date of Encounter: 07/13/17 Time of Encounter: 10:31 - Assessment and plan (1) Sepsis Current Visit: Yes Status: Acute (2) Acute respiratory failure with hypoxia Current Visit: Yes Status: Acute Assessment and plan: 62-year-old female history of COPD tolerating nasal cannula oxygen that then progressed to requiring BiPAP at 100% oxygen concentration. -Repeat ABG demonstrates slight hypercapnic acidosis likely secondary to pulmonary edema with underlying lung disease. - Patient was given 20 mg IV Lasix once, stat chest x-ray which did not demonstrate any improvement in lung opacifications bilaterally -Cannot rule out pneumonia. Plan: - Discontinue vancomycin cefepime and start meropenem - Discontinue IV fluids - Continue BiPAP, wean oxygen as tolerated. (3) Escherichia coli septicemia Current Visit: Yes Status: Acute Assessment and plan: 62-year-old female presented with ureteral lithiasis, pyelonephritis with urine cultures growing Escherichia coli species. - Initial blood culture has grown gram-negative rods likely to be Escherichia coli - Patient currently treated for sepsis Plan: - Continue meropenem IV with further sensitivity results will narrow antibiotic coverage - Discontinue vancomycin (4) Urolithiasis Current Visit: Yes Status: Acute Assessment and plan: s/p Day 2, Cystoscopy and Rt ureter stent placement Urology on board Qualifiers: Urinary calculus location: ureter Qualified Code(s): N20.1 - Calculus of ureter (5) Pyelonephritis, acute Current Visit: Yes Status: Acute (6) Tobacco dependence Current Visit: Yes Status: Acute Assessment and plan: counseled to quit smoking on nicotine patch - Subjective Interval history: Ms. Avelar 62-year-old female seen evaluated patient bedside this morning. She is awake alert oriented interactive and denies any distress. She said that she became short of breath more so last evening but has tolerated the BiPAP. She denies ever using BiPAP before. Her only complaint this morning is some right sided flank pain which she said is been continuous. She tolerated ureteral stent placement and denies any current fevers chills nausea vomiting diarrhea diaphoresis. She has any other concerning complaints at this time. - Constitutional Vitals: Temp Pulse Resp BP Pulse Ox 98.5 F 115 49 128/70 100 07/13/17 07:51 07/13/17 10:00 07/13/17 10:00 07/13/17 10:00 07/13/17 10:00 General appearance: Present: A&O X 3, no acute distress, answers questions appropriately Exam: General: Patient alert, awake, oriented 3, interactive, in no acute distress HEENT: Normocephalic, atraumatic, pupils equal reactive to light, nasal cavity patent and open septum median position, oral mucosa moist, uvula midline, neck supple trachea midline no palpable lymphadenopathy, no thyromegaly. Chest: Symmetric bilateral correlating with respiratory effort, mild labored respiratory rate and effort. Cardiac: Regular rate and rhythm, grade 2/6 systolic ejection murmur Radial pulses 2+ bilateral, posterior tibial and dorsal pedal pulses 2+ bilateral. Respiratory: Diffuse crackles on inspiratory effort Abdomen: Soft, nontender, positive bowel sounds, no palpable masses appreciated on examination Extremities: Symmetric bilateral, bilateral lower extremities without erythema or edema patient moving all 4 extremities spontaneously. Neurologic: No focal deficits appreciated on examination. Face symmetric, muscle strength symmetric bilateral upper and lower extremities. Internal Medicine: Result - Labs CBC & Chem 7: 07/13/17 06:53 07/13/17 06:53 Labs: Short CBC 07/12/17 07/13/17 Range/Units 20:38 06:53 WBC 12.8 H 10.8 (4.3-11.1) K/mcL Hgb 10.0 L 10.2 L (11.5-15.4) g/dL Hct 30.0 L 29.8 L (35.3-44.9) % Plt Count 180 198 (140-400) K/mcL Neutrophils # 10.6 H 9.3 H (1.6-8.9) K/mcL BMP 07/12/17 07/13/17 20:38 06:53 Sodium 132 L 131 L Potassium 3.9 3.5 Chloride 104 101 Carbon Dioxide 22 23 BUN 10 8 Creatinine 0.82 0.75 Glucose 132 H 136 H Calcium 8.2 L 8.5 L Liver Function 07/12/17 Range/Units 20:38 Total Bilirubin 0.3 (0.2-1.2) mg/dL AST 11 (5-34) Units/L ALT 8 (0-55) Units/L Alkaline Phosphatase 66 (38-126) Units/L Albumin 1.8 L (3.5-5.0) g/dL - ABG Interpretation ABG results: ABG ABG pH 7.40 pH Units (7.32-7.45) 07/12/17 23:00 ABG pCO2 35 mmHg (35-45) 07/12/17 23:00 ABG pO2 127 mmHg (85-104) H 07/12/17 23:00 ABG O2 Saturation 99 % (95-98) H 07/12/17 23:00 - Impressions Impressions Chest X-Ray 07/12/17 16:20 IMPRESSION: Bilateral airspace disease, likely pulmonary edema. Extensive pneumonia could have this appearance as well. D/ / Sydney Kilgore Cha, MD / Sydney Kilgore Cha, MD Interpreting Provider: Sydney Kilgore Cha, MD Chest X-Ray 07/13/17 08:34 IMPRESSION: No significant interval change of bilateral airspace and interstitial opacities. D/ / Andreina Camp MD / Andreina Camp MD Interpreting Provider: Andreina Camp MD - VTE Documentation of Mechanical Device: Intermittent pneumatic compression device Consult Discharge Plan - Plan Referrals: Joshua Arana MD [Primary Care Provider] - <Roberto Beatty H - Last Filed: 07/13/17 16:54> Date of Encounter: 07/13/17 - Constitutional Vitals: Temp Pulse Resp BP Pulse Ox 98.4 F 93 38 84/59 98 07/13/17 16:15 07/13/17 16:00 07/13/17 16:18 07/13/17 16:00 07/13/17 16:18 Internal Medicine: Result - Labs CBC & Chem 7: 07/13/17 06:53 07/13/17 06:53 Labs: Short CBC 07/12/17 07/13/17 Range/Units 20:38 06:53 WBC 12.8 H 10.8 (4.3-11.1) K/mcL Hgb 10.0 L 10.2 L (11.5-15.4) g/dL Hct 30.0 L 29.8 L (35.3-44.9) % Plt Count 180 198 (140-400) K/mcL Neutrophils # 10.6 H 9.3 H (1.6-8.9) K/mcL BMP 07/12/17 07/13/17 20:38 06:53 Sodium 132 L 131 L Potassium 3.9 3.5 Chloride 104 101 Carbon Dioxide 22 23 BUN 10 8 Creatinine 0.82 0.75 Glucose 132 H 136 H Calcium 8.2 L 8.5 L Liver Function 07/12/17 Range/Units 20:38 Total Bilirubin 0.3 (0.2-1.2) mg/dL AST 11 (5-34) Units/L ALT 8 (0-55) Units/L Alkaline Phosphatase 66 (38-126) Units/L Albumin 1.8 L (3.5-5.0) g/dL - ABG Interpretation ABG results: ABG ABG pH 7.35 pH Units (7.32-7.45) 07/13/17 11:01 ABG pCO2 47 mmHg (35-45) H 07/13/17 11:01 ABG pO2 58 mmHg (85-104) L 07/13/17 11:01 ABG O2 Saturation 88 % (95-98) L 07/13/17 11:01 - Impressions Impressions Chest X-Ray 07/12/17 16:20 IMPRESSION: Bilateral airspace disease, likely pulmonary edema. Extensive pneumonia could have this appearance as well. D/ / Sydney Kilgore Cha, MD / Sydney Kilgore Cha, MD Interpreting Provider: Sydney Kilgore Cha, MD Chest X-Ray 07/13/17 08:34 IMPRESSION: No significant interval change of bilateral airspace and interstitial opacities. D/ / Andreina Camp MD / Andreina Camp MD Interpreting Provider: Andreina Camp MD - Attending Attestation Sepsis secondary to Escherichia coli bacteremia/UTI/acute pyelonephritis, possible gram-negative pneumonia Acute pulmonary edema Switch to meropenem, continue IV Lasix, check a ABG I examined this patient and my medical decision-making was reviewed with the Resident Physician. I agree with the documented findings, disposition and treatment plan as described except to the extent set forth below.
[2017-07-13] MEDS ORDERED: Furosemide 20 MG/2 ML VIAL IVP ONE ×2 (10:41→10:46)
[2017-07-13] MEDS ORDERED: *HR* Morphine 2 MG/ML SYRINGE IVP ONE (10:46)
[2017-07-13] MEDS ORDERED: Vancomycin 750 MG in D5% in Water 250 ML IVPB SCH ×2 (11:00→12:00)
[2017-07-13] MEDS ORDERED: Dexmedetomidine HCl 400 MCG/100 ML MLS IVC ONE (11:02)
[2017-07-13 11:04] LABS: ABG Base Excess -0.2 mEq/L (-2.0 to 3.0); ABG HCO3 26 mEq/L (21-27); ABG Oxygen Saturation 88 % (95-98); ABG PCO2 47 mmHg (35-45); ABG PH 7.35 pH Units (7.32-7.45); ABG PO2 58 mmHg (85-104); ABG TCO2 27.3 mEq/L (20-26)
[2017-07-13 11:05] LABS: Blood Gas FiO2 100 %
[2017-07-13] MEDS ORDERED: *HR* Metoprolol 5 MG/5 ML VIAL IVP ONE (11:07)
[2017-07-13] MEDS: Dexmedetomidine HCl 400 MCG/100 ML MLS IVC SCH (11:13)
[2017-07-13] MEDS: *HR* Metoprolol 5 MG/5 ML VIAL IVP SCH ×2 (11:26→18:20)
[2017-07-13] MEDS ORDERED: *HR* Etomidate 40 MG/20 ML VIAL IVP ONE (12:46)
[2017-07-13] MEDS ORDERED: *HR* Midazolam HCl 5 MG/5 ML VIAL IVP ONE (12:46)
[2017-07-13] MEDS ORDERED: *HR* LORazepam 2 MG/ML VIAL IVP ONE (12:46)
[2017-07-13] MEDS ORDERED: 0.9 % Sodium Chloride 1,000 ML IVC ONE (13:47)
--- NOTE | 2017-07-13 13:49 | Electrocardiograph Report ---
[address] [place], [place] [address] Test Date: 2017-07-12 Pat Name: Karen Avelar Department: 109 Room: 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
[2017-07-13] MEDS ORDERED: Piperacillin/Tazobactam 3.375 GM in D5% in Water (Mini-Bag+) 100 ML IVPB SCH (16:34)
[2017-07-13] MEDS ORDERED: Levofloxacin 750 MG/150 ML 750 MG/150 ML BAG IVPB SCH (18:00)
[2017-07-13] MEDS ORDERED: Ondansetron 4 MG/2 ML VIAL ONE (19:01)
[2017-07-13] MEDS ORDERED: Ondansetron 4 MG/2 ML VIAL IVP PRN (19:03)
[2017-07-13] MEDS: Vancomycin 750 MG in D5% in Water 250 ML IVPB SCH (19:33)
[2017-07-13] MEDS: 0.9 % Sodium Chloride 1,000 ML IVC SCH (19:33)
[2017-07-13] MEDS ORDERED: Lacri-Lube 3.5 GM TUBE BOTH EYES PRN (21:01)
[2017-07-13] MEDS: ARIPiprazole 5 MG TABLET PO SCH (21:14)
--- NOTE | 2017-07-13 21:15 | Event Note ---
<Paulie Baltazar - Last Filed: 07/13/17 22:21> Date of Encounter: 07/13/17 Time of Encounter: 20:45 Notified by nursing that patient vomited on BiPAP and possibly aspirated chocolate milk. During time of assessment, patient is very tachypneic wearing nonrebreather mask with respiratory rate 60s and SpO2 in low 70s. Patient is A& Ox 3 and following commands but is in acute respiratory distress. Blood pressure was 129/78. The decision was made to intubate patient. Patient was given 2 mg Ativan for anxiety and sedated with Versed. Patient was successfully intubated. Please see intubation note. Later her blood pressure was down to 69/ 41 with MAP 46. Femoral central line was placed and Levophed started. Please see procedure note. <Maldonado Luna - Last Filed: 07/14/17 00:34> Date of Encounter: 07/14/[address] Baltazar and ICU nursing staff the above. I saw and examined patient as well. I agree with the above actions and plan.
--- NOTE | 2017-07-13 21:18 | Procedure Note ---
<Paulie Baltazar - Last Filed: 07/13/17 22:20> Date of procedure: 07/13/17 (2044) Pre-op diagnosis: Acute respiratory failure Post-op diagnosis: same Procedure: A time-out was completed verifying correct patient, procedure, site, positioning , and special equipment if applicable. The patient was placed in a flat position. Sedation was obtained using Versed 7.5mg, and additionally with Etomidate 15mg. The patient was easily ventilated using an ambu bag. The MAC 3 BLADE was used and inserted into the oropharynx at which time there was a Grade 1 view of the vocal cords. A 7.5-nauruan endotracheal tube was inserted and visualized going through the vocal cords. The stylette was removed. Colorimetric change was visualized on the CO2 meter. Breath sounds were heard in both lung george equally. The endotracheal tube was placed at 22 cm, measured at the teeth. Attending, Dr. Luna was present for the entire procedure. A chest x-ray was ordered to assess for pneumothorax and verify endotrachealtube placement. The patient tolerated the procedure well and there were no complications. Chest X-Ray 07/13/17 20:56 IMPRESSION: Again identified are diffuse bilateral interstitial and alveolar opacities, worsened from the previous examination. Interval intubation, with the endotracheal tube 5 cm above the spencer. The enteric tube side port is just beyond the GE junction, with the tip in the proximal gastric body. Anesthesia: IV sedation Surgeon: Paulie Baltazar Airplane Mechanic: Maldonado Luna Estimated blood loss (cc): 0 Pathology: none sent Condition: critical Disposition: no change <Maldonado Luna - Last Filed: 07/14/17 00:36> Procedure: I was present and supervised the above intubation. I agree with the need to intubate and support her ventilation. Dr. Baltazar performed well and easily intubated patient once adequate sedation was achieved. Patient tolerated procedure well.
[2017-07-13 21:40] LABS: ABG Base Excess 1.8 mEq/L (-2.0 to 3.0); ABG HCO3 26 mEq/L (21-27); ABG Oxygen Saturation 99 % (95-98); ABG PCO2 36 mmHg (35-45); ABG PH 7.46 pH Units (7.32-7.45); ABG PO2 143 mmHg (85-104); ABG TCO2 26.7 mEq/L (20-26); Blood Gas FiO2 100 %
[2017-07-13] MEDS: Norepinephrine 4 MG in D5% in Water 250 ML IVC SCH (22:15)
--- NOTE | 2017-07-13 22:26 | Procedure Note ---
Date of procedure: 07/13/17 Pre-op diagnosis: Respiratory failure; sepsis Post-op diagnosis: same Procedure: RIGHT Femoral CVC placement: Dr. Baltazar attempted right femoral CVC (as I supervised) but was unable to canulate right femoral vein. I therefore attempted after his failed attempt. Using Seldinger technique, I successfully aspirated and canulated the right femoral vein on first attempt. The groin are was prepped and draped in sterile fashion prior to my attempt. I threaded the guidewire through the large bore needle. I dilated the vein with the dilator and then removed it. I then threaded the 16 cm triple lumen catheter over the guidewire and removed the guidwire intact. All three ports were aspirated of blood and flushed with NS. I then sutured CVC in place with 2-0 silk. Pt tolerated procedure well with no immediate complications. Time out performed by nursing staff, Dr. Baltazar, and me. Consent was implied as this was emergent. Anesthesia: local Surgeon: Maldonado Luna Heavy Mobile Equipment Repairer: Paulie Baltazar Estimated blood loss (cc): 5 Pathology: none sent Condition: critical Disposition: ICU
[2017-07-14] MEDS: FentaNYL (PF) 1,000 MCG in 0.9 % Sodium Chloride 80 ML IVC SCH ×3 (00:44→19:41)
[2017-07-14] MEDS: *HR* Metoprolol 5 MG/5 ML VIAL IVP SCH ×5 (00:45→23:09)
[2017-07-14] MEDS: Lacri-Lube 3.5 GM TUBE BOTH EYES SCH ×7 (00:49→23:09)
[2017-07-14] MEDS: Ipratropium/Albuterol Neb 3 ML IH SCH ×6 (04:28→23:23)
[2017-07-14 05:11] LABS: ABG Base Excess 4.7 mEq/L (-2.0 to 3.0); ABG HCO3 29 mEq/L (21-27); ABG Oxygen Saturation 93 % (95-98); ABG PCO2 42 mmHg (35-45); ABG PH 7.45 pH Units (7.32-7.45); ABG PO2 64 mmHg (85-104); ABG TCO2 30.5 mEq/L (20-26)
[2017-07-14 05:12] LABS: Blood Gas FiO2 40 %
[2017-07-14 05:31] LABS: Hematocrit 28.1 % (35.3-44.9); Hemoglobin 9.5 g/dL (11.5-15.4); Mean Corpuscular HGB Conc 33.8 g/dL (31.6-35.5); Mean Corpuscular Volume 88.6 fL (83.0-100.0); Mean Platelet Volume 10.9 fL (9.4-12.4); Platelet Count 210 K/mcL (140-400); Red Blood Count 3.17 M/mcL (3.82-4.97); Red Cell Distribution Width 14.3 % (11.5-14.5)
[2017-07-14] MEDS: *HR* Enoxaparin 40 MG/0.4 ML SYRINGE SQ SCH (05:43)
[2017-07-14 05:57] LABS: Alanine Aminotransferase 11 Units/L (0-55); Albumin/Globulin Ratio 0.5 (1.1-2.2); Alkaline Phosphatase 76 Units/L (38-126); Aspartate Amino Transferase 20 Units/L (5-34); BUN/Creatinine Ratio 13 (6-26); Bilirubin,Total 0.3 mg/dL (0.2-1.2); Blood Urea Nitrogen 9 mg/dL (7-20); Calcium 8.6 mg/dL (8.6-10.8); Carbon Dioxide 26 mEq/L (19-29); Chloride 100 mEq/L (98-109); Globulin 3.7 g/dL (2.4-3.5); Glucose 123 mg/dL (70-99); Osmolality,Calculated 278 (280-300); Potassium 3.7 mEq/L (3.5-4.5); Sodium 134 mEq/L (136-145); Total Protein 5.4 g/dL (6.0-8.3); eGFR For African Americans > 60 (> 60); eGFR For Non-African Americans > 60 (> 60)
[2017-07-14 05:58] LABS: Albumin 1.7 g/dL (3.5-5.0)
[2017-07-14 06:03] LABS: Lymphocytes # 0.6 K/mcL (0.6-4.6); Monocytes # 0.6 K/mcL (0.0-1.3); Neutrophils # 8.5 K/mcL (1.6-8.9); Platelet Estimate Normal (Normal)
[2017-07-14 06:04] LABS: Anisocytosis 1+ (Not Present)
--- NOTE | 2017-07-14 07:57 | Urology Progress Note ---
Date of Encounter: 07/13/17 Time of Encounter: 16:00 - Assessment and Plan (1) Urinary tract infection Current Visit: Yes Status: Acute Assessment and plan: E coli growing out of ruiz and renal aspirate. Will continue IV antibiotics. Qualifiers: Urinary tract infection type: site unspecified Hematuria presence: without hematuria Qualified Code(s): N39.0 - Urinary tract infection, site not specified (2) Urolithiasis Current Visit: Yes Status: Acute Assessment and plan: Appreciate IM support. Will continue to follow along. Qualifiers: Urinary calculus location: ureter Qualified Code(s): N20.1 - Calculus of ureter Progress Note Narrative: Delayed entry note: 62 year old woman status post right ureteral stent placement. POD #2. She was transferred to the ICU for shortness of breath, fevers, and hypotension. UOP has been good. Objective Initial Vital Signs Temp Pulse Resp BP Pulse Ox 99.3 F 108 16 154/80 96 07/11/17 16:18 07/11/17 16:18 07/11/17 16:18 07/11/17 16:18 07/11/17 16:18 - General physical appearance Present: well developed, moderate distress - Respiratory Present: other (Bipap in place) - Abdomen Present: soft - Genitourinary Urine Appearance: Present: Clear - Labs 07/14/17 05:20 07/14/17 05:20 Diabetes panel 07/14/17 Range/Units 05:20 Sodium 134 L (136-145) mEq/L Potassium 3.7 (3.5-4.5) mEq/L Chloride 100 (98-109) mEq/L Carbon Dioxide 26 (19-29) mEq/L BUN 9 (7-20) mg/dL Creatinine 0.72 (0.57-1.11) mg/dL Glucose 123 H (70-99) mg/dL Calcium 8.6 (8.6-10.8) mg/dL AST 20 (5-34) Units/L ALT 11 (0-55) Units/L Alkaline Phosphatase 76 (38-126) Units/L Albumin 1.7 L (3.5-5.0) g/dL Calcium panel 07/14/17 Range/Units 05:20 Calcium 8.6 (8.6-10.8) mg/dL Albumin 1.7 L (3.5-5.0) g/dL Pituitary panel 07/14/17 Range/Units 05:20 Sodium 134 L (136-145) mEq/L Potassium 3.7 (3.5-4.5) mEq/L Chloride 100 (98-109) mEq/L Carbon Dioxide 26 (19-29) mEq/L BUN 9 (7-20) mg/dL Creatinine 0.72 (0.57-1.11) mg/dL Glucose 123 H (70-99) mg/dL Calcium 8.6 (8.6-10.8) mg/dL Adrenal panel 07/14/17 Range/Units 05:20 Sodium 134 L (136-145) mEq/L Potassium 3.7 (3.5-4.5) mEq/L Chloride 100 (98-109) mEq/L Carbon Dioxide 26 (19-29) mEq/L BUN 9 (7-20) mg/dL Creatinine 0.72 (0.57-1.11) mg/dL Glucose 123 H (70-99) mg/dL Calcium 8.6 (8.6-10.8) mg/dL Total Bilirubin 0.3 (0.2-1.2) mg/dL AST 20 (5-34) Units/L ALT 11 (0-55) Units/L Alkaline Phosphatase 76 (38-126) Units/L Albumin 1.7 L (3.5-5.0) g/dL - VTE Documentation of Mechanical Device: Intermittent pneumatic compression device Consult Discharge Plan - Plan Referrals: Joshua Arana MD [Primary Care Provider] -
[2017-07-14] MEDS: Famotidine 20 MG TABLET PO SCH (08:37)
[2017-07-14] MEDS: Chlorhexidine Rinse 15 ML MOUTHWASH MM SCH ×2 (08:38→19:40)
[2017-07-14] MEDS: FLUoxetine 20 MG CAPSULE PO SCH ×2 (08:38→19:40)
[2017-07-14] MEDS ORDERED: Meropenem 1,000 MG in 0.9 % Sodium Chloride Mini Bag 100 ML IVPB SCH (10:30)
--- NOTE | 2017-07-14 10:46 | Pulmonology Consult Note ---
<Keagan Fernandez - Last Filed: 07/14/17 11:11> Date of Encounter: 07/14/17 Time of Encounter: 10:00 Assessment and Plan (1) Sepsis Current Visit: Yes Status: Acute Urine culture positive for ESBL. Blood culture positive for Escherichia coli. Sensitivities for urine culture demonstrated resistance to multiple antibiotics , including Levaquin. Levaquin was discontinued. CT of chest was positive for pulmonary edema. Meropenem 2 g was started yesterday, we will have patient on 1 g of meropenem starting today. Patient continues to be tachycardic, borderline hypotensive and on Levophed. Failed BiPAP yesterday and was intubated. White blood cell count continues to be trending down. Continue to monitor with a.m. labs Qualifiers: Qualified Code(s): A41.51 - Sepsis due to Escherichia coli [E. coli] (2) Acute respiratory failure with hypoxia Current Visit: Yes Status: Acute Chest CT demonstrated pulmonary edema. Patient failed BiPAP yesterday and was intubated. Blood culture came back positive for ESBL. Patient started on meropenem 1 g daily. Symbicort is started. (3) Pyelonephritis, acute Current Visit: Yes Status: Acute Urine culture positive for ESBL. Blood culture positive for Escherichia coli. Patient started on meropenem 1 mg daily. (4) Urolithiasis Current Visit: Yes Status: Acute Status post day 2, cystoscopy and right ureter stent placement. Urology is on board. Qualifiers: Urinary calculus location: ureter Qualified Code(s): N20.1 - Calculus of ureter (5) Tobacco dependence Current Visit: Yes Status: Acute Start patient on nicotine patch. We will consul in quitting in the outpatient setting History of Present Illness Consult date: 07/14/17 Reason for consult: dyspnea, other (intubated after failing BIPAP) Past Med Surg Social Fam HX - Past Medical History Medical history: DVT, GERD, hyperlipidemia, hypertension, migraine, seizures Psychiatric history: anxiety, depression, panic disorder - Past Surgical History Surgical History: no surgical history - Social History Smoking Status: Former smoker Smokeless Tobacco Status: No Alcohol use: none Drug use: none - Family History Brother Hx Family Genitourinary Disorders: Yes (Kidney stones) Medications and Allergies HYDROcodone/Acet 5/325 mg [[place] 5-325 mg] 1 tab PO Q6H PRN #14 tab 02/17/17 [Rx ] ARIPiprazole [Abilify] 15 mg PO HS 02/18/17 [History] Metoprolol [Lopressor] 25 mg PO BID 02/18/17 [History] Promethazine [Phenergan] 25 mg PO TID PRN 02/18/17 [History] Ranitidine HCl [Zantac] 150 mg PO BID 02/18/17 [History] amLODIPine [Norvasc] 5 mg PO DAILY 02/18/17 [History] clonazePAM [Klonopin] 0.5 mg PO QID PRN 02/18/17 [History] FLUoxetine HCl [Fluoxetine HCl] 40 mg PO BID 07/12/17 [History] 3 Allergy/AdvReac Type Severity Reaction Status Date / Time codeine AdvReac See Verified 07/11/17 16:21 Comments naproxen AdvReac See Verified 07/11/17 16:21 Comments Oxycodone AdvReac See Verified 07/11/17 16:21 Comments ROS unobtainable: due to endotracheal tube All Systems: A 10-system review of systems was performed and is negative for pertinent findings except as documented above in the HPI. Physical Examination Vital Signs: Vital Signs, Last 4 Hours Temp Pulse Resp BP Pulse Ox 07/14/17 10:00 101 18 84/56 96 07/14/17 09:00 103 20 93/63 95 07/14/17 08:00 102 21 76/49 96 07/14/17 07:25 23 98 07/14/17 07:15 100.1 F H 07/14/17 07:00 105 29 116/68 97 General appearance: comatose, other (intubated and sedated ) Effort: normal, other (intubated) Auscultation: bilateral: rales Cardiovascular: other (tachycardic) Gastrointestinal: normoactive bowel sounds Integumentary: normal Extremities: no cyanosis, no edema, no clubbing Musculoskeletal: no deformities unable to assess due to mental status Ventilator Settings Ventilator Settings: Ventilator Settings, Last 8 Hours Ventilator Mode VC+ Ventilator Mode A/C Ventilator Mode A/C Ventilator Mode A/C Ventilator Tidal Volume 400 Setting Ventilator Tidal Volume 400 Setting Ventilator Tidal Volume 400 Setting Ventilator Tidal Volume 400 Setting Ventilator Respiratory Rate 14 Setting Ventilator Respiratory Rate 14 Setting Ventilator Respiratory Rate 14 Setting Ventilator Respiratory Rate 14 Setting Actual Respiratory Rate 23 Actual Respiratory Rate 25 Actual Respiratory Rate 17 Positive End Expiratory 5 Pressure Positive End Expiratory 5 Pressure Positive End Expiratory 5 Pressure Positive End Expiratory 5 Pressure Peak Inspiratory Airway 21 Pressure Peak Inspiratory Airway 21 Pressure Peak Inspiratory Airway 24 Pressure Results - Laboratory Findings CBC and BMP: 07/14/17 05:20 07/14/17 05:20 ABG ABG pH 7.45 pH Units (7.32-7.45) 07/14/17 05:03 ABG pCO2 42 mmHg (35-45) 07/14/17 05:03 ABG pO2 64 mmHg (85-104) L 07/14/17 05:03 ABG O2 Saturation 93 % (95-98) L 07/14/17 05:03 Abnormal lab findings: Abnormal lab results RBC 3.17 M/mcL (3.82-4.97) L 07/14/17 05:20 Hgb 9.5 g/dL (11.5-15.4) L 07/14/17 05:20 Hct 28.1 % (35.3-44.9) L 07/14/17 05:20 Anisocytosis 1+ (Not Present) A 07/14/17 05:20 ABG pO2 64 mmHg (85-104) L 07/14/17 05:03 ABG HCO3 29 mEq/L (21-27) H 07/14/17 05:03 ABG Total CO2 30.5 mEq/L (20-26) H 07/14/17 05:03 ABG O2 Saturation 93 % (95-98) L 07/14/17 05:03 ABG Base Excess 4.7 mEq/L (-2.0 to 3.0) H 07/14/17 05:03 Sodium 134 mEq/L (136-145) L 07/14/17 05:20 Glucose 123 mg/dL (70-99) H 07/14/17 05:20 POC Glucose 147 (58-89) H 07/12/17 21:33 Calculated Osmolality 278 (280-300) L 07/14/17 05:20 Magnesium 1.1 mg/dL (1.6-2.6) L 07/12/17 20:38 Serum Total Protein 5.4 g/dL (6.0-8.3) L 07/14/17 05:20 Albumin 1.7 g/dL (3.5-5.0) L 07/14/17 05:20 Globulin 3.7 g/dL (2.4-3.5) H 07/14/17 05:20 Albumin/Globulin Ratio 0.5 (1.1-2.2) L 07/14/17 05:20 Urine Clarity Turbid (Clear) A 07/11/17 17:45 Urine Protein 100 mg/dL (Neg-Trace) H 07/11/17 17:45 Urine Blood Moderate (Negative) H 07/11/17 17:45 Urine Nitrite Positive (Negative) A 07/11/17 17:45 Ur Leukocyte Esterase Moderate (Negative) H 07/11/17 17:45 Urine Microscopic RBC 15-30 per hpf (0-3) H 07/11/17 17:45 Urine Microscopic WBC TNTC per hpf (0-3) H 07/11/17 17:45 Ur Squamous Epith Cells Many per lpf (None-Few) H 07/11/17 17:45 Urine Bacteria Many per hpf (None-Few) H 07/11/17 17:45 Ur Culture Indicated? YES (NO) A 07/11/17 17:45 Enterobacteriac sp PCR DETECTED (Not Detect) A 07/12/17 17:40 E. coli (PCR) DETECTED (Not Detect) A 07/12/17 17:40 - Microbiology Findings Microbiology Findings: Microbiology, Last 48 Hours 07/12/17 17:40 Blood Culture - Preliminary Peripheral Venipuncture No growth. 07/11/17 20:55 Urine Culture - Final Urine,Kidney Escherichia coli ESBL 07/12/17 17:40 Blood Culture - Preliminary Peripheral Venipuncture Escherichia coli 07/13/17 20:55 Sputum Culture - Preliminary Sputum 07/13/17 18:25 Legionella Antigen - Final Urine,Xiong Port - Clinical Findings Intake & Output: Intake & Output 07/13/17 07/14/17 07/14/17 23:59 07:59 15:59 Intake Total 450 / 450 453 / 453 100 / 100 Output Total 650 / 650 725 / 725 Balance -200 / -200 -272 / -272 80 / 80 Weight 48.9 kg Consult Discharge Plan - Plan Referrals: Joshua Arana MD [Primary Care Provider] - <Saadlla,Haval M - Last Filed: 07/14/17 16:23> Date of Encounter: 07/14/17 All Systems: A 10-system review of systems was performed and is negative for pertinent findings except as documented above in the HPI. Physical Examination Vital Signs: Vital Signs, Last 4 Hours Temp Pulse Resp BP Pulse Ox 07/14/17 16:10 100.3 F H 07/14/17 16:02 19 90/56 92 07/14/17 15:00 107 18 87/54 93 07/14/17 14:10 20 93 07/14/17 14:00 99.5 F 107 19 88/52 96 07/14/17 13:00 110 18 88/51 94 Ventilator Settings Ventilator Settings: Ventilator Settings, Last 8 Hours Ventilator Mode VC+ Ventilator Mode VC+ Ventilator Mode VC+ Ventilator Mode VC+ Ventilator Tidal Volume 400 Setting Ventilator Tidal Volume 400 Setting Ventilator Tidal Volume 400 Setting Ventilator Tidal Volume 400 Setting Ventilator Respiratory Rate 12 Setting Ventilator Respiratory Rate 12 Setting Ventilator Respiratory Rate 12 Setting Ventilator Respiratory Rate 12 Setting Actual Respiratory Rate 19 Actual Respiratory Rate 21 Actual Respiratory Rate 21 Actual Respiratory Rate 20 Positive End Expiratory 5 Pressure Positive End Expiratory 5 Pressure Positive End Expiratory 5 Pressure Positive End Expiratory 4.8 Pressure Peak Inspiratory Airway 20 Pressure Peak Inspiratory Airway 21 Pressure Peak Inspiratory Airway 28 Pressure Peak Inspiratory Airway 19 Pressure Results - Laboratory Findings CBC and BMP: 07/14/17 05:20 07/14/17 05:20 ABG ABG pH 7.45 pH Units (7.32-7.45) 07/14/17 05:03 ABG pCO2 42 mmHg (35-45) 07/14/17 05:03 ABG pO2 64 mmHg (85-104) L 07/14/17 05:03 ABG O2 Saturation 93 % (95-98) L 07/14/17 05:03 Abnormal lab findings: Abnormal lab results RBC 3.17 M/mcL (3.82-4.97) L 07/14/17 05:20 Hgb 9.5 g/dL (11.5-15.4) L 07/14/17 05:20 Hct 28.1 % (35.3-44.9) L 07/14/17 05:20 Anisocytosis 1+ (Not Present) A 07/14/17 05:20 ABG pO2 64 mmHg (85-104) L 07/14/17 05:03 ABG HCO3 29 mEq/L (21-27) H 07/14/17 05:03 ABG Total CO2 30.5 mEq/L (20-26) H 07/14/17 05:03 ABG O2 Saturation 93 % (95-98) L 07/14/17 05:03 ABG Base Excess 4.7 mEq/L (-2.0 to 3.0) H 07/14/17 05:03 Sodium 134 mEq/L (136-145) L 07/14/17 05:20 Glucose 123 mg/dL (70-99) H 07/14/17 05:20 POC Glucose 147 (58-89) H 07/12/17 21:33 Calculated Osmolality 278 (280-300) L 07/14/17 05:20 Magnesium 1.1 mg/dL (1.6-2.6) L 07/12/17 20:38 Serum Total Protein 5.4 g/dL (6.0-8.3) L 07/14/17 05:20 Albumin 1.7 g/dL (3.5-5.0) L 07/14/17 05:20 Globulin 3.7 g/dL (2.4-3.5) H 07/14/17 05:20 Albumin/Globulin Ratio 0.5 (1.1-2.2) L 07/14/17 05:20 Urine Clarity Turbid (Clear) A 07/11/17 17:45 Urine Protein 100 mg/dL (Neg-Trace) H 07/11/17 17:45 Urine Blood Moderate (Negative) H 07/11/17 17:45 Urine Nitrite Positive (Negative) A 07/11/17 17:45 Ur Leukocyte Esterase Moderate (Negative) H 07/11/17 17:45 Urine Microscopic RBC 15-30 per hpf (0-3) H 07/11/17 17:45 Urine Microscopic WBC TNTC per hpf (0-3) H 07/11/17 17:45 Ur Squamous Epith Cells Many per lpf (None-Few) H 07/11/17 17:45 Urine Bacteria Many per hpf (None-Few) H 07/11/17 17:45 Ur Culture Indicated? YES (NO) A 07/11/17 17:45 Enterobacteriac sp PCR DETECTED (Not Detect) A 07/12/17 17:40 E. coli (PCR) DETECTED (Not Detect) A 07/12/17 17:40 - Microbiology Findings Microbiology Findings: Microbiology, Last 48 Hours 07/12/17 17:40 Blood Culture - Preliminary Peripheral Venipuncture No growth. 07/11/17 20:55 Urine Culture - Final Urine,Kidney Escherichia coli ESBL 07/12/17 17:40 Blood Culture - Preliminary Peripheral Venipuncture Escherichia coli 07/13/17 20:55 Sputum Culture - Preliminary Sputum 07/13/17 18:25 Legionella Antigen - Final Urine,Xiong Port - Clinical Findings Intake & Output: Intake & Output 07/14/17 07/14/17 07/14/17 07:59 15:59 23:59 Intake Total 453 / 453 967 / 967 Output Total 725 / 725 120 / 120 200 / 200 Balance -272 / -272 847 / 847 -200 / -200 Weight 48.9 kg - Attending Attestation I examined this patient and my medical decision-making was reviewed with the Resident Physician. I agree with the documented findings, disposition and treatment plan as described except to the extent set forth below. Patient seen and examined. Labs, radiology, chart personally reviewed. Agree with resident's history and physical, assessment, plan with following comments: [employer]: Patient sedated and respond to commands, Pulmonary: Acceptable oxygenation and ventilation. Patient with significant evidence of combination of pulmonary edema as well as wants looks like pneumonia which could be aspiration and suggested ventilator setting. Patient with history of smoking and we will continue bronchodilators. Cardiovascular: Patient's in shock which appears to be septic in nature. GI: Nutrition per dietary and GI prophylaxis per routine patient at least with moderate protein calorie deficiency and to start tube feeds. Heme: DVT prophylaxis per routine ID: Continue antibiotics and plan to de-escalation. Change antibiotics based on her culture and sensitivity. Renal; urine out put and renal funtion reviewed Endorcine: blood glucose is monitored Lines: all lines checked and no evidence of infections Skin: skin care to prevent pressure ulcers per nursing routine care Patient was intubated and her clinical condition deteriorated quickly and she is at risk her condition could even worsen. More fluid hoping we can get her off the vasopressors. I spent 35 min of Critical Care time with this patient. It involved decision making of high complexity to assess, manipulate, and support vital organ system failure and/or to prevent further life threatening deterioration of the patient' s condition. The time involved in the performance of separately reportable procedures was not counted toward critical care time.
[2017-07-14] MEDS: Meropenem 1,000 MG in 0.9 % Sodium Chloride Mini Bag 100 ML IVPB SCH ×2 (10:53→17:12)
[2017-07-14] MEDS ORDERED: 0.9 % Sodium Chloride 500 ML IVC ONE ×2 (10:56→13:00)
[2017-07-14] MEDS: Budesonide/Formoterol 80/4.5 MDI IH SCH ×2 (11:06→19:49)
[2017-07-14] MEDS: Nicotine 7 MG PATCH.TD24 TD SCH (11:07)
[2017-07-14] MEDS: Norepinephrine 4 MG in D5% in Water 250 ML IVC SCH (16:39)
[2017-07-14] MEDS: Dexmedetomidine HCl 400 MCG/100 ML MLS IVC SCH (19:21)
[2017-07-14] MEDS: Acetaminophen 325 MG TABLET PO PRN (19:40)
[2017-07-14] MEDS: ARIPiprazole 5 MG TABLET PO SCH (19:40)
[2017-07-15] MEDS: Meropenem 1,000 MG in 0.9 % Sodium Chloride Mini Bag 100 ML IVPB SCH ×3 (03:45→18:04)
[2017-07-15 04:00] LABS: Basophils % 0.3 %; Eosinophils # 0.2 K/mcL (0.0-0.6); Eosinophils % 1.5 %; Hematocrit 26.9 % (35.3-44.9); Hemoglobin 8.8 g/dL (11.5-15.4); Immature Granulocytes % 0.9 % (0-4); Immature Platelets 5.7 % (1.1-6.1); Lymphocytes # 0.5 K/mcL (0.6-4.6); Lymphocytes % 5.3 %; Mean Corpuscular HGB Conc 32.7 g/dL (31.6-35.5); Mean Corpuscular Hemoglobin 29.5 pg (28.0-33.3); Mean Corpuscular Volume 90.3 fL (83.0-100.0); Mean Platelet Volume 11.2 fL (9.4-12.4); Monocytes # 0.5 K/mcL (0.0-1.3); Monocytes % 4.5 %; Neutrophils # 8.8 K/mcL (1.6-8.9); Platelet Count 250 K/mcL (140-400); Red Blood Count 2.98 M/mcL (3.82-4.97); Red Cell Distribution Width 14.6 % (11.5-14.5); Segmented Neutrophils % 87.5 %
[2017-07-15] MEDS: Lacri-Lube 3.5 GM TUBE BOTH EYES SCH ×6 (04:08→23:37)
[2017-07-15] MEDS: Ipratropium/Albuterol Neb 3 ML IH SCH ×6 (04:13→23:10)
[2017-07-15 05:04] LABS: ABG Base Excess 3.2 mEq/L (-2.0 to 3.0); ABG HCO3 29 mEq/L (21-27); ABG Oxygen Saturation 99 % (95-98); ABG PCO2 46 mmHg (35-45); ABG PO2 166 mmHg (85-104); ABG TCO2 29.9 mEq/L (20-26)
[2017-07-15] MEDS: *HR* Metoprolol 5 MG/5 ML VIAL IVP SCH ×4 (05:07→23:37)
[2017-07-15 05:08] LABS: Blood Gas FiO2 40 %
[2017-07-15] MEDS: *HR* Enoxaparin 40 MG/0.4 ML SYRINGE SQ SCH (05:09)
[2017-07-15 07:01] LABS: Alanine Aminotransferase 13 Units/L (0-55); Albumin/Globulin Ratio 0.4 (1.1-2.2); Alkaline Phosphatase 97 Units/L (38-126); Aspartate Amino Transferase 25 Units/L (5-34); BUN/Creatinine Ratio 16 (6-26); Bilirubin,Total 0.4 mg/dL (0.2-1.2); Blood Urea Nitrogen 12 mg/dL (7-20); Calcium 8.6 mg/dL (8.6-10.8); Carbon Dioxide 25 mEq/L (19-29); Chloride 102 mEq/L (98-109); Globulin 3.8 g/dL (2.4-3.5); Glucose 128 mg/dL (70-99); Osmolality,Calculated 283 (280-300); Potassium 3.7 mEq/L (3.5-4.5); Sodium 136 mEq/L (136-145); Total Protein 5.3 g/dL (6.0-8.3); eGFR For African Americans > 60 (> 60); eGFR For Non-African Americans > 60 (> 60)
[2017-07-15 07:05] LABS: Albumin 1.5 g/dL (3.5-5.0)
[2017-07-15] MEDS ORDERED: Albumin 25% 25gram/100mL 25 GM/100 ML IV.SOLN IVPB ONE (07:48)
[2017-07-15] MEDS: Budesonide/Formoterol 80/4.5 MDI IH SCH ×2 (07:51→20:41)
[2017-07-15] MEDS: FLUoxetine 20 MG CAPSULE PO SCH ×2 (08:26→19:16)
[2017-07-15] MEDS: Chlorhexidine Rinse 15 ML MOUTHWASH MM SCH ×2 (08:50→19:16)
[2017-07-15] MEDS: Nicotine 7 MG PATCH.TD24 TD SCH (08:50)
[2017-07-15] MEDS: Famotidine 20 MG TABLET PO SCH (08:50)
--- NOTE | 2017-07-15 10:50 | Pulmonology Progress Note ---
<Keagan Fernandez - Last Filed: 07/15/17 11:21> Date of Encounter: 07/15/17 Time of Encounter: 10:00 Assessment and Plan (1) Sepsis Current Visit: Yes Status: Acute Patient is intubated and on levophed, fentanyl, propofol due to witnessed seizures last night. Urine culture positive for ESBL. Blood culture positive for Escherichia coli. Blood pressure is in the 80s systolic. White cell count is stable and normal. Patient has several episodes of fever throughout the night. Continue meropenem 1 g daily. Patient continues to be tachycardic, borderline hypotensive and on Levophed. 4 units of albumin 5% started with goal of weaning off vasopressors. Solu-Medrol 60 mg started. Echocardiogram ordered to assess heart function. Continue to monitor with a.m. labs. Qualifiers: Qualified Code(s): A41.51 - Sepsis due to Escherichia coli [E. coli] (2) Acute respiratory failure with hypoxia Current Visit: Yes Status: Acute Patient's vital signs are stable. She is intubated and on mechanical ventilation, ventilation settings reviewed by Dr. Osborne. Patient is on Symbicort and Solu-Medrol. Continue to monitor. (3) Pyelonephritis, acute Current Visit: Yes Status: Acute Urine culture positive for ESBL. Blood culture positive for Escherichia coli. Continue meropenem 1 mg daily. (4) Urolithiasis Current Visit: Yes Status: Acute Status post day #2 cystoscopy and right ureter stent placement. Escherichia coli growing out of Xiong and renal aspirate. Continue IV antibiotics. Urology is on board. Qualifiers: Urinary calculus location: ureter Qualified Code(s): N20.1 - Calculus of ureter (5) Tobacco dependence Current Visit: Yes Status: Acute Continue nicotine patch. (6) DVT prophylaxis Current Visit: Yes Status: Acute SCDs for DVT prophylaxis Subjective Principal diagnosis: Sepsis Interval history: Patient is intubated and unconscious. She had a drop of oxygen saturation and tachycardia yesterday night. She had seizure activity for about 2 minutes. Propofol bolus was ordered. Urine catheter with T-colored urine. No bowel movements. Objective PUL Vital signs: Last Vital Signs Temp 100.9 F H 07/15/17 07:45 Pulse 107 07/15/17 09:00 Resp 18 07/15/17 09:32 BP 84/54 07/15/17 09:00 Pulse Ox 99 07/15/17 09:32 General appearance: other (Intubated and unconscious) ENT: other (Intubated) Neck: supple Auscultation: bilateral: clear Cardiovascular: regular rate and rhythm Gastrointestinal: hypoactive bowel sounds, soft, non-distended Integumentary: normal Extremities: no cyanosis, edema (1+ edema bilateral lower extremities) Musculoskeletal: no deformities unable to assess due to mental status Ventilator Settings Ventilator Settings: Ventilator Settings, Last 8 Hours Ventilator Mode VC+ Ventilator Mode VC+ Ventilator Mode VC+ Ventilator Mode VC+ Ventilator Mode VC+ Ventilator Mode VC+ Ventilator Mode VC+ Ventilator Mode VC+ Ventilator Mode VC+ Ventilator Mode VC+ Ventilator Mode VC+ Ventilator Tidal Volume 400 Setting Ventilator Tidal Volume 400 Setting Ventilator Tidal Volume 400 Setting Ventilator Tidal Volume 400 Setting Ventilator Tidal Volume 400 Setting Ventilator Tidal Volume 400 Setting Ventilator Tidal Volume 400 Setting Ventilator Tidal Volume 400 Setting Ventilator Tidal Volume 400 Setting Ventilator Tidal Volume 400 Setting Ventilator Tidal Volume 400 Setting Ventilator Respiratory Rate 12 Setting Ventilator Respiratory Rate 12 Setting Ventilator Respiratory Rate 12 Setting Ventilator Respiratory Rate 12 Setting Ventilator Respiratory Rate 12 Setting Ventilator Respiratory Rate 12 Setting Ventilator Respiratory Rate 12 Setting Ventilator Respiratory Rate 12 Setting Ventilator Respiratory Rate 12 Setting Ventilator Respiratory Rate 12 Setting Ventilator Respiratory Rate 12 Setting Actual Respiratory Rate 18 Actual Respiratory Rate 17 Actual Respiratory Rate 21 Actual Respiratory Rate 20 Actual Respiratory Rate 16 Actual Respiratory Rate 16 Actual Respiratory Rate 16 Actual Respiratory Rate 15 Actual Respiratory Rate 15 Actual Respiratory Rate 16 Positive End Expiratory 8 Pressure Positive End Expiratory 8 Pressure Positive End Expiratory 8 Pressure Positive End Expiratory 5 Pressure Positive End Expiratory 8 Pressure Positive End Expiratory 5 Pressure Positive End Expiratory 5 Pressure Positive End Expiratory 5 Pressure Positive End Expiratory 5 Pressure Positive End Expiratory 5 Pressure Positive End Expiratory 5 Pressure Peak Inspiratory Airway 17 Pressure Peak Inspiratory Airway 17 Pressure Peak Inspiratory Airway 26 Pressure Peak Inspiratory Airway 13 Pressure Peak Inspiratory Airway 13 Pressure Peak Inspiratory Airway 14 Pressure Peak Inspiratory Airway 14 Pressure Peak Inspiratory Airway 15 Pressure Results - Laboratory Findings CBC and BMP: 07/15/17 03:30 07/15/17 03:30 ABG ABG pH 7.40 pH Units (7.32-7.45) 07/15/17 04:52 ABG pCO2 46 mmHg (35-45) H 07/15/17 04:52 ABG pO2 166 mmHg (85-104) H 07/15/17 04:52 ABG O2 Saturation 99 % (95-98) H 07/15/17 04:52 Abnormal lab findings: Abnormal lab results RBC 2.98 M/mcL (3.82-4.97) L 07/15/17 03:30 Hgb 8.8 g/dL (11.5-15.4) L 07/15/17 03:30 Hct 26.9 % (35.3-44.9) L 07/15/17 03:30 RDW 14.6 % (11.5-14.5) H 07/15/17 03:30 Lymphocytes # 0.5 K/mcL (0.6-4.6) L 07/15/17 03:30 Anisocytosis 1+ (Not Present) A 07/14/17 05:20 ABG pCO2 46 mmHg (35-45) H 07/15/17 04:52 ABG pO2 166 mmHg (85-104) H 07/15/17 04:52 ABG HCO3 29 mEq/L (21-27) H 07/15/17 04:52 ABG Total CO2 29.9 mEq/L (20-26) H 07/15/17 04:52 ABG O2 Saturation 99 % (95-98) H 07/15/17 04:52 ABG Base Excess 3.2 mEq/L (-2.0 to 3.0) H 07/15/17 04:52 Glucose 128 mg/dL (70-99) H 07/15/17 03:30 POC Glucose 134 (58-89) H 07/14/17 23:16 Magnesium 1.1 mg/dL (1.6-2.6) L 07/12/17 20:38 Serum Total Protein 5.3 g/dL (6.0-8.3) L 07/15/17 03:30 Albumin 1.5 g/dL (3.5-5.0) L 07/15/17 03:30 Globulin 3.8 g/dL (2.4-3.5) H 07/15/17 03:30 Albumin/Globulin Ratio 0.4 (1.1-2.2) L 07/15/17 03:30 Urine Clarity Turbid (Clear) A 07/11/17 17:45 Urine Protein 100 mg/dL (Neg-Trace) H 07/11/17 17:45 Urine Blood Moderate (Negative) H 07/11/17 17:45 Urine Nitrite Positive (Negative) A 07/11/17 17:45 Ur Leukocyte Esterase Moderate (Negative) H 07/11/17 17:45 Urine Microscopic RBC 15-30 per hpf (0-3) H 07/11/17 17:45 Urine Microscopic WBC TNTC per hpf (0-3) H 07/11/17 17:45 Ur Squamous Epith Cells Many per lpf (None-Few) H 07/11/17 17:45 Urine Bacteria Many per hpf (None-Few) H 07/11/17 17:45 Ur Culture Indicated? YES (NO) A 07/11/17 17:45 Enterobacteriac sp PCR DETECTED (Not Detect) A 07/12/17 17:40 E. coli (PCR) DETECTED (Not Detect) A 07/12/17 17:40 - Microbiology Findings Microbiology Findings: Microbiology, Last 48 Hours 07/12/17 17:40 Blood Culture - Final Peripheral Venipuncture Escherichia coli ESBL 07/13/17 20:55 Sputum Culture - Preliminary Sputum Yeast Species 07/12/17 17:40 Blood Culture - Preliminary Peripheral Venipuncture No growth. 07/11/17 20:55 Urine Culture - Final Urine,Kidney Escherichia coli ESBL 07/13/17 18:25 Legionella Antigen - Final Urine,Xiong Port - Clinical Findings Intake & Output: Intake & Output 07/14/17 07/15/17 07/15/17 23:59 07:59 15:59 Intake Total 700 / 700 294 / 294 40 / 40 Output Total 550 / 550 550 / 550 Balance 150 / 150 -256 / -256 40 / 40 Weight 53.7 kg - VTE Documentation of Mechanical Device: Intermittent pneumatic compression device Consult Discharge Plan - Plan Referrals: Joshua Arana MD [Primary Care Provider] - <Deb Osborne - Last Filed: 07/15/17 16:20> Date of Encounter: 07/15/17 Objective PUL Vital signs: Last Vital Signs Temp 99.8 F H 07/15/17 11:00 Pulse 102 07/15/17 15:00 Resp 15 07/15/17 15:00 BP 87/54 07/15/17 15:00 Pulse Ox 99 07/15/17 15:00 Ventilator Settings Ventilator Settings: Ventilator Settings, Last 8 Hours Ventilator Mode VC+ Ventilator Mode VC+ Ventilator Mode VC+ Ventilator Mode VC+ Ventilator Mode VC+ Ventilator Mode VC+ Ventilator Mode VC+ Ventilator Mode VC+ Ventilator Mode VC+ Ventilator Mode VC+ Ventilator Tidal Volume 400 Setting Ventilator Tidal Volume 400 Setting Ventilator Tidal Volume 400 Setting Ventilator Tidal Volume 400 Setting Ventilator Tidal Volume 400 Setting Ventilator Tidal Volume 400 Setting Ventilator Tidal Volume 400 Setting Ventilator Tidal Volume 400 Setting Ventilator Tidal Volume 400 Setting Ventilator Tidal Volume 400 Setting Ventilator Respiratory Rate 12 Setting Ventilator Respiratory Rate 12 Setting Ventilator Respiratory Rate 12 Setting Ventilator Respiratory Rate 12 Setting Ventilator Respiratory Rate 12 Setting Ventilator Respiratory Rate 12 Setting Ventilator Respiratory Rate 12 Setting Ventilator Respiratory Rate 12 Setting Ventilator Respiratory Rate 12 Setting Ventilator Respiratory Rate 12 Setting Actual Respiratory Rate 17 Actual Respiratory Rate 17 Actual Respiratory Rate 15 Actual Respiratory Rate 17 Actual Respiratory Rate 12 Actual Respiratory Rate 12 Actual Respiratory Rate 17 Actual Respiratory Rate 18 Actual Respiratory Rate 18 Actual Respiratory Rate 17 Positive End Expiratory 8 Pressure Positive End Expiratory 8 Pressure Positive End Expiratory 8 Pressure Positive End Expiratory 8 Pressure Positive End Expiratory 8 Pressure Positive End Expiratory 8 Pressure Positive End Expiratory 8 Pressure Positive End Expiratory 8 Pressure Positive End Expiratory 8 Pressure Positive End Expiratory 8 Pressure Peak Inspiratory Airway 16 Pressure Peak Inspiratory Airway 18 Pressure Peak Inspiratory Airway 16 Pressure Peak Inspiratory Airway 17 Pressure Peak Inspiratory Airway 32 Pressure Peak Inspiratory Airway 31 Pressure Peak Inspiratory Airway 17 Pressure Peak Inspiratory Airway 20 Pressure Peak Inspiratory Airway 17 Pressure Peak Inspiratory Airway 17 Pressure Results - Laboratory Findings CBC and BMP: 07/15/17 03:30 07/15/17 03:30 ABG ABG pH 7.40 pH Units (7.32-7.45) 07/15/17 04:52 ABG pCO2 46 mmHg (35-45) H 07/15/17 04:52 ABG pO2 166 mmHg (85-104) H 07/15/17 04:52 ABG O2 Saturation 99 % (95-98) H 07/15/17 04:52 Abnormal lab findings: Abnormal lab results RBC 2.98 M/mcL (3.82-4.97) L 07/15/17 03:30 Hgb 8.8 g/dL (11.5-15.4) L 07/15/17 03:30 Hct 26.9 % (35.3-44.9) L 07/15/17 03:30 RDW 14.6 % (11.5-14.5) H 07/15/17 03:30 Lymphocytes # 0.5 K/mcL (0.6-4.6) L 07/15/17 03:30 Anisocytosis 1+ (Not Present) A 07/14/17 05:20 ABG pCO2 46 mmHg (35-45) H 07/15/17 04:52 ABG pO2 166 mmHg (85-104) H 07/15/17 04:52 ABG HCO3 29 mEq/L (21-27) H 07/15/17 04:52 ABG Total CO2 29.9 mEq/L (20-26) H 07/15/17 04:52 ABG O2 Saturation 99 % (95-98) H 07/15/17 04:52 ABG Base Excess 3.2 mEq/L (-2.0 to 3.0) H 07/15/17 04:52 Glucose 128 mg/dL (70-99) H 07/15/17 03:30 POC Glucose 134 (58-89) H 07/14/17 23:16 Magnesium 1.1 mg/dL (1.6-2.6) L 07/12/17 20:38 Serum Total Protein 5.3 g/dL (6.0-8.3) L 07/15/17 03:30 Albumin 1.5 g/dL (3.5-5.0) L 07/15/17 03:30 Globulin 3.8 g/dL (2.4-3.5) H 07/15/17 03:30 Albumin/Globulin Ratio 0.4 (1.1-2.2) L 07/15/17 03:30 Urine Clarity Turbid (Clear) A 07/11/17 17:45 Urine Protein 100 mg/dL (Neg-Trace) H 07/11/17 17:45 Urine Blood Moderate (Negative) H 07/11/17 17:45 Urine Nitrite Positive (Negative) A 07/11/17 17:45 Ur Leukocyte Esterase Moderate (Negative) H 07/11/17 17:45 Urine Microscopic RBC 15-30 per hpf (0-3) H 07/11/17 17:45 Urine Microscopic WBC TNTC per hpf (0-3) H 07/11/17 17:45 Ur Squamous Epith Cells Many per lpf (None-Few) H 07/11/17 17:45 Urine Bacteria Many per hpf (None-Few) H 07/11/17 17:45 Ur Culture Indicated? YES (NO) A 07/11/17 17:45 Enterobacteriac sp PCR DETECTED (Not Detect) A 07/12/17 17:40 E. coli (PCR) DETECTED (Not Detect) A 07/12/17 17:40 - Microbiology Findings Microbiology Findings: Microbiology, Last 48 Hours 07/12/17 17:40 Blood Culture - Final Peripheral Venipuncture Escherichia coli ESBL 07/13/17 20:55 Sputum Culture - Preliminary Sputum Yeast Species 07/12/17 17:40 Blood Culture - Preliminary Peripheral Venipuncture No growth. 07/11/17 20:55 Urine Culture - Final Urine,Kidney Escherichia coli ESBL 07/13/17 18:25 Legionella Antigen - Final Urine,Xiong Port - Clinical Findings Intake & Output: Intake & Output 07/15/17 07/15/17 07/15/17 07:59 15:59 23:59 Intake Total 294 / 294 1397 / 1397 Output Total 550 / 550 150 / 150 Balance -256 / -256 1247 / 1247 - Attending Attestation I examined this patient and my medical decision-making was reviewed with the Resident Physician. I agree with the documented findings, disposition and treatment plan as described except to the extent set forth below. Patient seen and examined. Labs, radiology, chart personally reviewed. Agree with resident's history and physical, assessment, plan with following comments: CLAIMS AGENT RIGHT OF WAY: Patient sedated and responded to stimuli, Pulmonary: Acceptable oxygenation and ventilation. Change vent setting and be careful about fluid since patient has evidence of pulmonary edema and underlying COPD with significant smoking history I suspect there is component of COPD exacerbation for that reason we will add systemic steroid. I suspect mostly pulmonary edema and less likely ARDS. Cardiovascular: Echocardiogram to evaluate LV function. GI: Nutrition per dietary and GI prophylaxis per routine Heme: DVT prophylaxis per routine ID: Continue antibiotics and plan to de-escalation. Patient with septic shock and resuscitate with albumin to limit fluid. Renal; urine out put and renal funtion reviewed Endorcine: blood glucose is monitored Lines: all lines checked and no evidence of infections Skin: skin care to prevent pressure ulcers per nursing routine care I spent 35 min of Critical Care time with this patient. It involved decision making of high complexity to assess, manipulate, and support vital organ system failure and/or to prevent further life threatening deterioration of the patient' s condition. The time involved in the performance of separately reportable procedures was not counted toward critical care time.
[2017-07-15] MEDS ORDERED: Dexmedetomidine HCl 400 MCG/100 ML MLS IVC SCH (11:00)
[2017-07-15] MEDS: methylPREDNISolone 125 MG/2 ML VIAL IVP SCH ×3 (11:42→23:37)
[2017-07-15] MEDS: Dexmedetomidine HCl 400 MCG/100 ML MLS IVC SCH (11:47)
[2017-07-15] MEDS: FentaNYL (PF) 1,000 MCG in 0.9 % Sodium Chloride 80 ML IVC SCH (11:48)
[2017-07-15] MEDS: ARIPiprazole 5 MG TABLET PO SCH (19:15)
[2017-07-16] MEDS: Norepinephrine 4 MG in D5% in Water 250 ML IVC SCH ×2 (03:17→08:14)
[2017-07-16] MEDS: Lacri-Lube 3.5 GM TUBE BOTH EYES SCH ×6 (03:18→23:55)
[2017-07-16 03:19] LABS: Hematocrit 25.6 % (35.3-44.9); Hemoglobin 8.3 g/dL (11.5-15.4); Immature Granulocytes % 0.7 % (0-4); Lymphocytes # 0.3 K/mcL (0.6-4.6); Lymphocytes % 3.9 %; Mean Corpuscular HGB Conc 32.4 g/dL (31.6-35.5); Mean Corpuscular Hemoglobin 30.1 pg (28.0-33.3); Mean Corpuscular Volume 92.8 fL (83.0-100.0); Monocytes # 0.2 K/mcL (0.0-1.3); Monocytes % 2.8 %; Neutrophils # 6.6 K/mcL (1.6-8.9); Platelet Count 216 K/mcL (140-400); Red Blood Count 2.76 M/mcL (3.82-4.97); Red Cell Distribution Width 15.3 % (11.5-14.5); Segmented Neutrophils % 92.6 %
[2017-07-16] MEDS: Meropenem 1,000 MG in 0.9 % Sodium Chloride Mini Bag 100 ML IVPB SCH ×3 (03:19→17:55)
[2017-07-16 03:28] LABS: Alanine Aminotransferase 15 Units/L (0-55); Albumin 2.3 g/dL (3.5-5.0); Albumin/Globulin Ratio 0.6 (1.1-2.2); Alkaline Phosphatase 79 Units/L (38-126); Aspartate Amino Transferase 34 Units/L (5-34); BUN/Creatinine Ratio 30 (6-26); Bilirubin,Total 0.2 mg/dL (0.2-1.2); Blood Urea Nitrogen 16 mg/dL (7-20); Calcium 9.5 mg/dL (8.6-10.8); Carbon Dioxide 29 mEq/L (19-29); Chloride 104 mEq/L (98-109); Globulin 3.6 g/dL (2.4-3.5); Glucose 171 mg/dL (70-99); Osmolality,Calculated 293 (280-300); Sodium 139 mEq/L (136-145); Total Protein 5.9 g/dL (6.0-8.3); eGFR For African Americans > 60 (> 60); eGFR For Non-African Americans > 60 (> 60)
[2017-07-16] MEDS: Ipratropium/Albuterol Neb 3 ML IH SCH ×6 (04:42→23:17)
[2017-07-16] MEDS: *HR* Metoprolol 5 MG/5 ML VIAL IVP SCH ×4 (04:51→23:55)
[2017-07-16] MEDS: *HR* Enoxaparin 40 MG/0.4 ML SYRINGE SQ SCH (04:57)
[2017-07-16] MEDS: methylPREDNISolone 125 MG/2 ML VIAL IVP SCH ×4 (04:57→23:55)
[2017-07-16 05:25] LABS: ABG Base Excess 5.2 mEq/L (-2.0 to 3.0); ABG HCO3 31 mEq/L (21-27); ABG Oxygen Saturation 100 % (95-98); ABG PCO2 51 mmHg (35-45); ABG PH 7.39 pH Units (7.32-7.45); ABG PO2 214 mmHg (85-104); ABG TCO2 32.5 mEq/L (20-26); Blood Gas FiO2 60 %
[2017-07-16] MEDS ORDERED: Calcium Gluconate 1,000 MG in D5% in Water 100 ML IVPB PRN (07:51)
[2017-07-16] MEDS ORDERED: Magnesium Sulfate 2 GM in D5% in Water 100 ML IVPB PRN (07:51)
[2017-07-16] MEDS: Budesonide/Formoterol 80/4.5 MDI IH SCH ×2 (08:02→19:48)
[2017-07-16] MEDS: clonazePAM 0.5 MG TABLET PO SCH ×3 (08:24→19:28)
[2017-07-16] MEDS: Famotidine 20 MG TABLET PO SCH ×2 (08:25→19:29)
[2017-07-16] MEDS: FLUoxetine 20 MG CAPSULE PO SCH ×2 (08:25→19:28)
[2017-07-16] MEDS: Nicotine 7 MG PATCH.TD24 TD SCH (08:26)
[2017-07-16] MEDS: Chlorhexidine Rinse 15 ML MOUTHWASH MM SCH ×2 (08:27→19:27)
[2017-07-16] MEDS ORDERED: Potassium Chloride Elixir 20 MEQ/15 ML UDC PO PRN (08:30)
--- NOTE | 2017-07-16 08:52 | Cardiology Consult Note ---
Date of Encounter: 07/16/17 Time of Encounter: 08:20 Assessment and Plan (1) Mitral regurgitation Current Visit: Yes Status: Acute Probably severe MR noted per echo yesterday, no prior history. Chronicity and etiology unclear. TTE completed yesterday demonstrated preserved LVEF 65%, mildly dilated LA and RA, mild , echodensity most consistent with a ruptured MV chord seen, probably severe MR (not well evaluated), moderate-severe TR, moderate PH (RVSP= 57 mmHg), TANESHA recommended. Patient remains intubated, plan for possible TANESHA today to further assess valvular dysfunction. Ideally, start betabloker and diuretic when able; however patient remains on pressors. No significant volume overload noted upon exam. Qualifiers: Cardiac valve disease etiology: etiology unspecified Qualified Code(s): I34.0 - Nonrheumatic mitral (valve) insufficiency (2) Pyelonephritis, acute Current Visit: Yes Status: Acute Presented with acute pyelonephritis d/t UTI and right ureteral stone s/p stent on 07/11/17. Intubated on 07/13/17 due to possible aspiration on Bipap. (3) Sepsis Current Visit: Yes Status: Acute Secondary to E.Coli per positive BLC. Positive ESBL urine. Mgmt per ICU team. Currently on Levophed 1mcg/min--weaning off. SBP high 80's-90's, MAP ~60. Qualifiers: Sepsis type: Escherichia coli Qualified Code(s): A41.51 - Sepsis due to Escherichia coli [E. coli] Discussion w patient/family: The assessment and plan as outlined above was discussed with the patient and/or family members who expressed understanding and agreement. All questions were answered. Thank you for involving us in the care of your patient. Please call with any questions. History of Present Illness Consult date: 07/16/17 Requesting physician: Deb Osborne Consult reason: Severe MR Chief complaint: Pyelonephritis History of present illness: Ms. Avelar is a 62 year old female with PMHx significant for HTN, GERD and depression who initially presented to the ED on 07/11/17 with abdominal pain; she was found to have an UTI and obstructing right ureteral stone. She is s/p stent placement for stone on 07/11/17. Developed respiratory distress s/p intubation and ICU transfer on 07/13/17. Reported witness seizure on 07/14/17, per review of old records does have a history of remote seizures. Cardiology consulted due to abnormal echocardiogram findings with probable severe MR. No significant cardiac history noted per review of old records. No family at bedside upon exam. Prior CV testing: Non-exercise nuclear 11/06/11: pharmacologic stress ECG negative, gated EF=69% , perfusion imagining negative for ischemia or infarct. Past Med Surg Social Fam HX - Past Medical History Source: old records reviewed Medical history: GERD, hyperlipidemia, hypertension, migraine, seizures Psychiatric history: anxiety, depression, panic disorder - Past Surgical History Surgical History: cholecystectomy, orthopedic, other - Social History Smoking Status: Former smoker Smokeless Tobacco Status: No Alcohol use: none Drug use: none - Family History Brother Hx Family Genitourinary Disorders: Yes (Kidney stones) Medications and Allergies HYDROcodone/Acet 5/325 mg [[place] 5-325 mg] 1 tab PO Q6H PRN #14 tab 02/17/17 [Rx ] ARIPiprazole [Abilify] 15 mg PO HS 02/18/17 [History] Metoprolol [Lopressor] 25 mg PO BID 02/18/17 [History] Promethazine [Phenergan] 25 mg PO TID PRN 02/18/17 [History] Ranitidine HCl [Zantac] 150 mg PO BID 02/18/17 [History] amLODIPine [Norvasc] 5 mg PO DAILY 02/18/17 [History] clonazePAM [Klonopin] 0.5 mg PO QID PRN 02/18/17 [History] FLUoxetine HCl [Fluoxetine HCl] 40 mg PO BID 07/12/17 [History] 3 Allergy/AdvReac Type Severity Reaction Status Date / Time codeine AdvReac See Verified 07/11/17 16:21 Comments naproxen AdvReac See Verified 07/11/17 16:21 Comments Oxycodone AdvReac See Verified 07/11/17 16:21 Comments All Systems Review: A 10-system review of systems was performed and is negative for pertinent findings except as documented above in the HPI. - Cardiovascular Cardiovascular: as per HPI Physical Examination Vital Signs, Last 4 Hours Temp Pulse Resp BP Pulse Ox 07/16/17 08:03 86 07/16/17 08:02 12 88/50 99 07/16/17 08:00 89 12 88/50 99 07/16/17 07:54 13 100 07/16/17 07:00 97.6 F 86 14 84/48 100 07/16/17 06:05 13 100 07/16/17 06:00 86 13 84/50 100 07/16/17 04:50 86 12 94/55 99 General: Other (intubated/sedated) HEENT: Atraumatic, Normocephaly Cardiac: Reg Rate and Rhythm, Normal S1 and S2, Other (systolic murmur) Lungs: Other (coarse breath sounds, anterior) Neuro: Other (intubated/sedated) Abdomen: Soft Extremities: No Edema, Normal Pulses Results 07/16/17 03:00 07/16/17 03:00 Lab Results 07/16/17 07/16/17 03:00 03:00 WBC 7.1 Hgb 8.3 L Hct 25.6 L Plt Count 216 Sodium 139 Potassium 3.0 L Chloride 104 Carbon Dioxide 29 BUN 16 Creatinine 0.54 L Glucose 171 H Calcium 9.5 Total Bilirubin 0.2 AST 34 ALT 15 Alkaline Phosphatase 79 - Imaging and Cardiology Echo: report reviewed - EKG Interpretation EKG results cardiology: personally reviewed Consult Discharge Plan - Plan Referrals: Joshua Arana MD [Primary Care Provider] -
[2017-07-16 09:16] LABS: Basophils % 0.1 %; Hematocrit 25.8 % (35.3-44.9); Hemoglobin 8.1 g/dL (11.5-15.4); Immature Granulocytes % 0.7 % (0-4); Lymphocytes # 0.3 K/mcL (0.6-4.6); Lymphocytes % 3.2 %; Mean Corpuscular HGB Conc 31.4 g/dL (31.6-35.5); Mean Corpuscular Hemoglobin 28.7 pg (28.0-33.3); Mean Corpuscular Volume 91.5 fL (83.0-100.0); Mean Platelet Volume 11.3 fL (9.4-12.4); Monocytes # 0.3 K/mcL (0.0-1.3); Monocytes % 3.8 %; Neutrophils # 7.8 K/mcL (1.6-8.9); Platelet Count 231 K/mcL (140-400); Red Blood Count 2.82 M/mcL (3.82-4.97); Red Cell Distribution Width 15.1 % (11.5-14.5); Segmented Neutrophils % 92.2 %
[2017-07-16 09:22] LABS: Magnesium 2.2 mg/dL (1.6-2.6)
[2017-07-16 09:23] LABS: BUN/Creatinine Ratio 31 (6-26); Blood Urea Nitrogen 22 mg/dL (7-20); Calcium 9.8 mg/dL (8.6-10.8); Carbon Dioxide 29 mEq/L (19-29); Chloride 104 mEq/L (98-109); Glucose 163 mg/dL (70-99); Osmolality,Calculated 295 (280-300); Sodium 139 mEq/L (136-145); eGFR For African Americans > 60 (> 60); eGFR For Non-African Americans > 60 (> 60)
[2017-07-16] MEDS: Potassium Phosphate 44 MEQ in 0.9 % Sodium Chloride 250 ML IVPB PRN (09:54)
[2017-07-16] MEDS: Dexmedetomidine HCl 400 MCG/100 ML MLS IVC SCH (11:05)
--- NOTE | 2017-07-16 12:14 | Pulmonology Progress Note ---
<Keagan Fernandez - Last Filed: 07/16/17 12:00> Date of Encounter: 07/16/17 Time of Encounter: 09:00 Assessment and Plan (1) Sepsis Current Visit: Yes Status: Acute Patient is intubated and on mechanical ventilation. Vital signs are stable without pressors. Currently trying to wean her off from her sedation. Blood culture positive for ESBL. White cell count is stable and normal. Patient continues to be tachycardic. Continue meropenem 1 g daily, Solu-Medrol 60 mg started. Patient still has no bowel movement, starting her on MiraLAX and senna. Repeat blood culture 2 Continue to monitor with a.m. labs. Qualifiers: Sepsis type: Escherichia coli Qualified Code(s): A41.51 - Sepsis due to Escherichia coli [E. coli] (2) Acute respiratory failure with hypoxia Current Visit: Yes Status: Acute Patient's vital signs are stable. She is intubated and on mechanical ventilation, ventilation settings reviewed by Dr. Osborne. Patient is on Symbicort and Solu-Medrol. Continue to monitor. Plan is to wean her off from her sedation but as patient has a history of anxiety we will restart her Klonopin and Abilify. Patient had abnormal results from echo, she will receive a TANESHA later today. CPAP trial in the evening. (3) Mitral valve disease Current Visit: Yes Status: Acute TTE demonstrates left ventricular ejection fraction 65%, possible ruptured mitral valve cord secondary to severe MR. TANESHA today to further evaluate valvular dysfunction. Cardiology is on board. Patient is weaned off from pressors and we will CPAP trial later today. We will start her on beta jonatan , diuretics when able. (4) Hypokalemia Current Visit: Yes Status: Acute Potassium is replaced today. Continue electrolyte protocol (5) Pyelonephritis, acute Current Visit: Yes Status: Acute Urine culture positive for ESBL. Blood culture positive for Escherichia coli. Continue meropenem 1 mg daily. (6) Urolithiasis Current Visit: Yes Status: Acute Status post day #2 cystoscopy and right ureter stent placement. Escherichia coli growing out of Xiong and renal aspirate. Continue IV antibiotics. Urology is on board. Qualifiers: Urinary calculus location: ureter Qualified Code(s): N20.1 - Calculus of ureter (7) Tobacco dependence Current Visit: Yes Status: Acute Continue nicotine patch. (8) DVT prophylaxis Current Visit: Yes Status: Acute SCDs for DVT prophylaxis Subjective Principal diagnosis: Sepsis Interval history: Patient is intubated and subjective is limited. She opens her eyes but unable to follow verbal commands. She continues to be confused. No overnight events. Voiding without difficulty via catheter. No bowel movements. Objective PUL Vital signs: Last Vital Signs Temp 98.8 F 07/16/17 11:00 Pulse 93 07/16/17 11:29 Resp 15 07/16/17 11:28 BP 83/54 07/16/17 11:28 Pulse Ox 99 07/16/17 11:28 General appearance: other (Intubated and on sedation) Auscultation: bilateral: clear Cardiovascular: regular rate and rhythm Gastrointestinal: hypoactive bowel sounds, soft Integumentary: normal Extremities: no cyanosis, no edema, no clubbing Musculoskeletal: no deformities Gait: normal posture unable to assess due to mental status Ventilator Settings Ventilator Settings: Ventilator Settings, Last 8 Hours Ventilator Mode VC+ Ventilator Mode VC+ Ventilator Mode VC+ Ventilator Mode VC+ Ventilator Mode VC+ Ventilator Mode VC+ Ventilator Mode VC+ Ventilator Mode VC+ Ventilator Mode VC+ Ventilator Mode VC+ Ventilator Tidal Volume 400 Setting Ventilator Tidal Volume 400 Setting Ventilator Tidal Volume 400 Setting Ventilator Tidal Volume 400 Setting Ventilator Tidal Volume 400 Setting Ventilator Tidal Volume 400 Setting Ventilator Tidal Volume 400 Setting Ventilator Tidal Volume 400 Setting Ventilator Tidal Volume 400 Setting Ventilator Tidal Volume 400 Setting Ventilator Respiratory Rate 12 Setting Ventilator Respiratory Rate 12 Setting Ventilator Respiratory Rate 12 Setting Ventilator Respiratory Rate 12 Setting Ventilator Respiratory Rate 12 Setting Ventilator Respiratory Rate 12 Setting Ventilator Respiratory Rate 12 Setting Ventilator Respiratory Rate 12 Setting Ventilator Respiratory Rate 12 Setting Ventilator Respiratory Rate 12 Setting Actual Respiratory Rate 13 Actual Respiratory Rate 14 Actual Respiratory Rate 13 Actual Respiratory Rate 12 Actual Respiratory Rate 13 Actual Respiratory Rate 13 Actual Respiratory Rate 13 Actual Respiratory Rate 14 Actual Respiratory Rate 14 Positive End Expiratory 5 Pressure Positive End Expiratory 5 Pressure Positive End Expiratory 5 Pressure Positive End Expiratory 5 Pressure Positive End Expiratory 5 Pressure Positive End Expiratory 8 Pressure Positive End Expiratory 8 Pressure Positive End Expiratory 8 Pressure Positive End Expiratory 8 Pressure Positive End Expiratory 8 Pressure Peak Inspiratory Airway 20 Pressure Peak Inspiratory Airway 19 Pressure Peak Inspiratory Airway 19 Pressure Peak Inspiratory Airway 24 Pressure Peak Inspiratory Airway 23 Pressure Peak Inspiratory Airway 23 Pressure Peak Inspiratory Airway 23 Pressure Peak Inspiratory Airway 28 Pressure Peak Inspiratory Airway 28 Pressure Results - Laboratory Findings CBC and BMP: 07/16/17 08:44 07/16/17 08:44 ABG ABG pH 7.39 pH Units (7.32-7.45) 07/16/17 05:15 ABG pCO2 51 mmHg (35-45) H 07/16/17 05:15 ABG pO2 214 mmHg (85-104) H 07/16/17 05:15 ABG O2 Saturation 100 % (95-98) H 07/16/17 05:15 Abnormal lab findings: Abnormal lab results RBC 2.82 M/mcL (3.82-4.97) L 07/16/17 08:44 Hgb 8.1 g/dL (11.5-15.4) L 07/16/17 08:44 Hct 25.8 % (35.3-44.9) L 07/16/17 08:44 MCHC 31.4 g/dL (31.6-35.5) L 07/16/17 08:44 RDW 15.1 % (11.5-14.5) H 07/16/17 08:44 Lymphocytes # 0.3 K/mcL (0.6-4.6) L 07/16/17 08:44 Anisocytosis 1+ (Not Present) A 07/14/17 05:20 ABG pCO2 51 mmHg (35-45) H 07/16/17 05:15 ABG pO2 214 mmHg (85-104) H 07/16/17 05:15 ABG HCO3 31 mEq/L (21-27) H 07/16/17 05:15 ABG Total CO2 32.5 mEq/L (20-26) H 07/16/17 05:15 ABG O2 Saturation 100 % (95-98) H 07/16/17 05:15 ABG Base Excess 5.2 mEq/L (-2.0 to 3.0) H 07/16/17 05:15 Potassium 3.0 mEq/L (3.5-4.5) L 07/16/17 08:44 BUN 22 mg/dL (7-20) H 07/16/17 08:44 BUN/Creatinine Ratio 31 (6-26) H 07/16/17 08:44 Glucose 163 mg/dL (70-99) H 07/16/17 08:44 POC Glucose 189 (58-89) H 07/16/17 07:10 Phosphorus 2.0 mg/dL (2.3-4.7) L 07/16/17 08:44 Serum Total Protein 5.9 g/dL (6.0-8.3) L 07/16/17 03:00 Albumin 2.3 g/dL (3.5-5.0) L D 07/16/17 03:00 Globulin 3.6 g/dL (2.4-3.5) H 07/16/17 03:00 Albumin/Globulin Ratio 0.6 (1.1-2.2) L 07/16/17 03:00 Urine Clarity Turbid (Clear) A 07/11/17 17:45 Urine Protein 100 mg/dL (Neg-Trace) H 07/11/17 17:45 Urine Blood Moderate (Negative) H 07/11/17 17:45 Urine Nitrite Positive (Negative) A 07/11/17 17:45 Ur Leukocyte Esterase Moderate (Negative) H 07/11/17 17:45 Urine Microscopic RBC 15-30 per hpf (0-3) H 07/11/17 17:45 Urine Microscopic WBC TNTC per hpf (0-3) H 07/11/17 17:45 Ur Squamous Epith Cells Many per lpf (None-Few) H 07/11/17 17:45 Urine Bacteria Many per hpf (None-Few) H 07/11/17 17:45 Ur Culture Indicated? YES (NO) A 07/11/17 17:45 Enterobacteriac sp PCR DETECTED (Not Detect) A 07/12/17 17:40 E. coli (PCR) DETECTED (Not Detect) A 07/12/17 17:40 - Microbiology Findings Microbiology Findings: Microbiology, Last 48 Hours 07/12/17 17:40 Blood Culture - Final Peripheral Venipuncture Escherichia coli ESBL 07/13/17 20:55 Sputum Culture - Preliminary Sputum Yeast Species 07/12/17 17:40 Blood Culture - Preliminary Peripheral Venipuncture No growth. 07/11/17 20:55 Urine Culture - Final Urine,Kidney Escherichia coli ESBL - Clinical Findings Intake & Output: Intake & Output 07/15/17 07/16/17 07/16/17 23:59 07:59 15:59 Intake Total 1306 / 1306 450 / 450 389 / 389 Output Total 800 / 800 450 / 450 200 / 200 Balance 506 / 506 0 / 0 189 / 189 Weight 52.1 kg - VTE Documentation of Mechanical Device: Intermittent pneumatic compression device Consult Discharge Plan - Plan Referrals: Joshua Arana MD [Primary Care Provider] - <[email or web address] [email or web address] Juarez - Last Filed: 07/16/17 12:39> Date of Encounter: 07/16/17 Objective PUL Vital signs: Last Vital Signs Temp 98.8 F 07/16/17 11:00 Pulse 93 07/16/17 11:29 Resp 15 07/16/17 11:28 BP 83/54 07/16/17 11:28 Pulse Ox 99 07/16/17 11:28 Ventilator Settings Ventilator Settings: Ventilator Settings, Last 8 Hours Ventilator Mode VC+ Ventilator Mode VC+ Ventilator Mode VC+ Ventilator Mode VC+ Ventilator Mode VC+ Ventilator Mode VC+ Ventilator Mode VC+ Ventilator Mode VC+ Ventilator Mode VC+ Ventilator Mode VC+ Ventilator Tidal Volume 400 Setting Ventilator Tidal Volume 400 Setting Ventilator Tidal Volume 400 Setting Ventilator Tidal Volume 400 Setting Ventilator Tidal Volume 400 Setting Ventilator Tidal Volume 400 Setting Ventilator Tidal Volume 400 Setting Ventilator Tidal Volume 400 Setting Ventilator Tidal Volume 400 Setting Ventilator Tidal Volume 400 Setting Ventilator Respiratory Rate 12 Setting Ventilator Respiratory Rate 12 Setting Ventilator Respiratory Rate 12 Setting Ventilator Respiratory Rate 12 Setting Ventilator Respiratory Rate 12 Setting Ventilator Respiratory Rate 12 Setting Ventilator Respiratory Rate 12 Setting Ventilator Respiratory Rate 12 Setting Ventilator Respiratory Rate 12 Setting Ventilator Respiratory Rate 12 Setting Actual Respiratory Rate 13 Actual Respiratory Rate 14 Actual Respiratory Rate 13 Actual Respiratory Rate 12 Actual Respiratory Rate 13 Actual Respiratory Rate 13 Actual Respiratory Rate 13 Actual Respiratory Rate 14 Actual Respiratory Rate 14 Positive End Expiratory 5 Pressure Positive End Expiratory 5 Pressure Positive End Expiratory 5 Pressure Positive End Expiratory 5 Pressure Positive End Expiratory 5 Pressure Positive End Expiratory 8 Pressure Positive End Expiratory 8 Pressure Positive End Expiratory 8 Pressure Positive End Expiratory 8 Pressure Positive End Expiratory 8 Pressure Peak Inspiratory Airway 20 Pressure Peak Inspiratory Airway 19 Pressure Peak Inspiratory Airway 19 Pressure Peak Inspiratory Airway 24 Pressure Peak Inspiratory Airway 23 Pressure Peak Inspiratory Airway 23 Pressure Peak Inspiratory Airway 23 Pressure Peak Inspiratory Airway 28 Pressure Peak Inspiratory Airway 28 Pressure Results - Laboratory Findings CBC and BMP: 07/16/17 08:44 07/16/17 08:44 ABG ABG pH 7.39 pH Units (7.32-7.45) 07/16/17 05:15 ABG pCO2 51 mmHg (35-45) H 07/16/17 05:15 ABG pO2 214 mmHg (85-104) H 07/16/17 05:15 ABG O2 Saturation 100 % (95-98) H 07/16/17 05:15 Abnormal lab findings: Abnormal lab results RBC 2.82 M/mcL (3.82-4.97) L 07/16/17 08:44 Hgb 8.1 g/dL (11.5-15.4) L 07/16/17 08:44 Hct 25.8 % (35.3-44.9) L 07/16/17 08:44 MCHC 31.4 g/dL (31.6-35.5) L 07/16/17 08:44 RDW 15.1 % (11.5-14.5) H 07/16/17 08:44 Lymphocytes # 0.3 K/mcL (0.6-4.6) L 07/16/17 08:44 Anisocytosis 1+ (Not Present) A 07/14/17 05:20 ABG pCO2 51 mmHg (35-45) H 07/16/17 05:15 ABG pO2 214 mmHg (85-104) H 07/16/17 05:15 ABG HCO3 31 mEq/L (21-27) H 07/16/17 05:15 ABG Total CO2 32.5 mEq/L (20-26) H 07/16/17 05:15 ABG O2 Saturation 100 % (95-98) H 07/16/17 05:15 ABG Base Excess 5.2 mEq/L (-2.0 to 3.0) H 07/16/17 05:15 Potassium 3.0 mEq/L (3.5-4.5) L 07/16/17 08:44 BUN 22 mg/dL (7-20) H 07/16/17 08:44 BUN/Creatinine Ratio 31 (6-26) H 07/16/17 08:44 Glucose 163 mg/dL (70-99) H 07/16/17 08:44 POC Glucose 189 (58-89) H 07/16/17 07:10 Phosphorus 2.0 mg/dL (2.3-4.7) L 07/16/17 08:44 Serum Total Protein 5.9 g/dL (6.0-8.3) L 07/16/17 03:00 Albumin 2.3 g/dL (3.5-5.0) L D 07/16/17 03:00 Globulin 3.6 g/dL (2.4-3.5) H 07/16/17 03:00 Albumin/Globulin Ratio 0.6 (1.1-2.2) L 07/16/17 03:00 Urine Clarity Turbid (Clear) A 07/11/17 17:45 Urine Protein 100 mg/dL (Neg-Trace) H 07/11/17 17:45 Urine Blood Moderate (Negative) H 07/11/17 17:45 Urine Nitrite Positive (Negative) A 07/11/17 17:45 Ur Leukocyte Esterase Moderate (Negative) H 07/11/17 17:45 Urine Microscopic RBC 15-30 per hpf (0-3) H 07/11/17 17:45 Urine Microscopic WBC TNTC per hpf (0-3) H 07/11/17 17:45 Ur Squamous Epith Cells Many per lpf (None-Few) H 07/11/17 17:45 Urine Bacteria Many per hpf (None-Few) H 07/11/17 17:45 Ur Culture Indicated? YES (NO) A 07/11/17 17:45 Enterobacteriac sp PCR DETECTED (Not Detect) A 07/12/17 17:40 E. coli (PCR) DETECTED (Not Detect) A 07/12/17 17:40 - Microbiology Findings Microbiology Findings: Microbiology, Last 48 Hours 07/12/17 17:40 Blood Culture - Final Peripheral Venipuncture Escherichia coli ESBL 07/13/17 20:55 Sputum Culture - Preliminary Sputum Yeast Species 07/12/17 17:40 Blood Culture - Preliminary Peripheral Venipuncture No growth. 07/11/17 20:55 Urine Culture - Final Urine,Kidney Escherichia coli ESBL - Clinical Findings Intake & Output: Intake & Output 07/15/17 07/16/17 07/16/17 23:59 07:59 15:59 Intake Total 1306 / 1306 450 / 450 389 / 389 Output Total 800 / 800 450 / 450 200 / 200 Balance 506 / 506 0 / 0 189 / 189 Weight 52.1 kg - Attending Attestation I examined this patient and my medical decision-making was reviewed with the Resident Physician. I agree with the documented findings, disposition and treatment plan as described except to the extent set forth below. Patient seen and examined. Labs, radiology, chart personally reviewed. Agree with resident's history and physical, assessment, plan with following comments: SENIOR APPLICATION PROGRAMMER: Patient sedated, but follows commands, resume home antidepressant and sedative medications. Pulmonary: Acceptable oxygenation and ventilation. Lowered PEEP to 5 and will wait for spontaneous breathing trial this patient is being seen by music typographer and plan to have TANESHA for the abnormal echocardiogram. Overall patient very weak and with underlying COPD and poor nutrition status which makes it difficult for and good and successful extubation. Cardiovascular: Patient blood pressure is stable relatively and appreciated music typographer input and assistance. GI: Nutrition per dietary and GI prophylaxis per routine Heme: DVT prophylaxis per routine ID: Continue antibiotics and plan to de-escalation Renal; urine out put and renal funtion reviewed Endorcine: blood glucose is monitored Lines: all lines checked and no evidence of infections Skin: skin care to prevent pressure ulcers per nursing routine care I spent 35 min of Critical Care time with this patient. It involved decision making of high complexity to assess, manipulate, and support vital organ system failure and/or to prevent further life threatening deterioration of the patient' s condition. The time involved in the performance of separately reportable procedures was not counted toward critical care time.
[2017-07-16 12:31] LABS: Ionized Calcium 1.33 mmol/L (1.15-1.35)
[2017-07-16] MEDS: ARIPiprazole 5 MG TABLET PO SCH (19:28)
[2017-07-16] MEDS: FentaNYL (PF) 1,000 MCG in 0.9 % Sodium Chloride 80 ML IVC SCH ×2 (19:36)
[2017-07-16 22:01] LABS: Phosphorous 3.2 mg/dL (2.3-4.7); Potassium 4.3 mEq/L (3.5-4.5)
[2017-07-17] MEDS: Meropenem 1,000 MG in 0.9 % Sodium Chloride Mini Bag 100 ML IVPB SCH ×3 (03:42→17:36)
[2017-07-17] MEDS: Lacri-Lube 3.5 GM TUBE BOTH EYES SCH ×6 (03:43→23:16)
[2017-07-17] MEDS: Ipratropium/Albuterol Neb 3 ML IH SCH ×6 (03:48→23:11)
[2017-07-17 04:23] LABS: Basophils % 0.1 %; Hematocrit 25.5 % (35.3-44.9); Hemoglobin 8.4 g/dL (11.5-15.4); Immature Granulocytes % 0.9 % (0-4); Lymphocytes # 0.3 K/mcL (0.6-4.6); Lymphocytes % 2.6 %; Mean Corpuscular HGB Conc 32.9 g/dL (31.6-35.5); Mean Corpuscular Hemoglobin 30.1 pg (28.0-33.3); Mean Corpuscular Volume 91.4 fL (83.0-100.0); Mean Platelet Volume 11.2 fL (9.4-12.4); Monocytes # 0.5 K/mcL (0.0-1.3); Monocytes % 4.1 %; Neutrophils # 10.8 K/mcL (1.6-8.9); Platelet Count 297 K/mcL (140-400); Red Blood Count 2.79 M/mcL (3.82-4.97); Red Cell Distribution Width 15.1 % (11.5-14.5); Segmented Neutrophils % 92.3 %
[2017-07-17 04:29] LABS: BUN/Creatinine Ratio 43 (6-26); Calcium 9.7 mg/dL (8.6-10.8); Carbon Dioxide 28 mEq/L (19-29); Chloride 108 mEq/L (98-109); Glucose 168 mg/dL (70-99); Magnesium 2.2 mg/dL (1.6-2.6); Osmolality,Calculated 307 (280-300); Phosphorous 2.4 mg/dL (2.3-4.7); Potassium 4.5 mEq/L (3.5-4.5); Sodium 143 mEq/L (136-145); eGFR For African Americans > 60 (> 60); eGFR For Non-African Americans > 60 (> 60)
[2017-07-17 04:32] LABS: Blood Urea Nitrogen 33 mg/dL (7-20)
[2017-07-17 05:04] LABS: ABG Base Excess 7.2 mEq/L (-2.0 to 3.0); ABG HCO3 33 mEq/L (21-27); ABG Oxygen Saturation 97 % (95-98); ABG PCO2 55 mmHg (35-45); ABG PH 7.39 pH Units (7.32-7.45); ABG PO2 93 mmHg (85-104)
[2017-07-17 05:08] LABS: Blood Gas FiO2 35 %
[2017-07-17] MEDS: *HR* Metoprolol 5 MG/5 ML VIAL IVP SCH ×3 (05:23→17:36)
[2017-07-17] MEDS: methylPREDNISolone 125 MG/2 ML VIAL IVP SCH (05:23)
[2017-07-17] MEDS: Potassium Phosphate 44 MEQ in 0.9 % Sodium Chloride 250 ML IVPB PRN (05:23)
[2017-07-17] MEDS: *HR* Enoxaparin 40 MG/0.4 ML SYRINGE SQ SCH (05:23)
[2017-07-17] MEDS: Budesonide/Formoterol 80/4.5 MDI IH SCH ×2 (07:27→19:45)
[2017-07-17] MEDS: Famotidine 20 MG TABLET PO SCH ×2 (07:46→19:46)
[2017-07-17] MEDS: FLUoxetine 20 MG CAPSULE PO SCH ×2 (07:46→19:46)
[2017-07-17] MEDS: Nicotine 7 MG PATCH.TD24 TD SCH (07:46)
[2017-07-17] MEDS: Chlorhexidine Rinse 15 ML MOUTHWASH MM SCH ×2 (07:46→19:47)
[2017-07-17] MEDS: clonazePAM 0.5 MG TABLET PO SCH ×3 (07:46→19:46)
[2017-07-17 08:58] LABS: BUN/Creatinine Ratio 51 (6-26); Blood Urea Nitrogen 38 mg/dL (7-20); Calcium 9.5 mg/dL (8.6-10.8); Carbon Dioxide 30 mEq/L (19-29); Chloride 107 mEq/L (98-109); Glucose 166 mg/dL (70-99); Osmolality,Calculated 311 (280-300); Potassium 4.7 mEq/L (3.5-4.5); Sodium 144 mEq/L (136-145); eGFR For African Americans > 60 (> 60); eGFR For Non-African Americans > 60 (> 60)
--- NOTE | 2017-07-17 09:47 | Pulmonology Progress Note ---
<Marla Viera - Last Filed: 07/17/17 09:55> Date of Encounter: 07/17/17 Time of Encounter: 09:00 Assessment and Plan (1) Sepsis Current Visit: Yes Status: Acute Patient now extubated. Vital signs are stable without pressors. Blood culture positive for ESBL. White cell count increased to 11.7 but patient is receiving stress dose of steroids. Continue meropenem 1 g daily. Solu-Medrol decreased to 40mg. Patient still has no bowel movement, starting her on MiraLAX and senna. Blood culture repeated and is pending at this time. Qualifiers: Sepsis type: Escherichia coli Qualified Code(s): A41.51 - Sepsis due to Escherichia coli [E. coli] (2) Acute respiratory failure with hypoxia Current Visit: Yes Status: Acute Patient did well on CPAP trial this AM and was extubated. Patient stable with oxygen saturation WNL. Will continue to monitor and use BiPAP if needed (3) Hypokalemia Current Visit: Yes Status: Acute Patient on electrolyte replacement protocol and potassium WNL at 4.5 (4) Mitral valve disease Current Visit: Yes Status: Acute TTE demonstrates left ventricular ejection fraction 65%, possible ruptured mitral valve cord secondary to severe MR. TANESHA completed with no concerns. Cardiology is on board. (5) Pyelonephritis, acute Current Visit: Yes Status: Acute Urine culture positive for ESBL. Blood culture positive for Escherichia coli. Continue meropenem 1 mg daily. (6) Urolithiasis Current Visit: Yes Status: Acute Status post cystoscopy and right ureter stent placement. Escherichia coli growing out of Xiong and renal aspirate. Continue IV antibiotics. Urology consulted. Qualifiers: Urinary calculus location: ureter Qualified Code(s): N20.1 - Calculus of ureter (7) Tobacco dependence Current Visit: Yes Status: Acute Continue nicotine patch (8) DVT prophylaxis Current Visit: Yes Status: Acute Patient currently wearing SCDs Subjective Principal diagnosis: Sepsis Interval history: No episodes overnight. Patient did well on CPAP trial so she was extubated this AM and is doing well. No complaints at this time. Continue to monitor. Objective PUL Vital signs: Last Vital Signs Temp 99.1 F 07/17/17 07:36 Pulse 116 07/17/17 09:00 Resp 20 07/17/17 09:00 BP 103/59 07/17/17 09:00 Pulse Ox 96 07/17/17 09:00 General appearance: no acute distress, alert Eyes: nonicteric ENT: oropharynx moist Neck: supple Effort: normal Auscultation: bilateral: diminished breath sounds Cardiovascular: regular rate and rhythm Gastrointestinal: hypoactive bowel sounds, soft, non-distended Integumentary: normal Extremities: no cyanosis, pink and warm Musculoskeletal: no deformities Gait: normal posture normal mental status, non-focal exam mood appropriate, affect normal Ventilator Settings Ventilator Settings: Ventilator Settings, Last 8 Hours Ventilator Mode VC+ Ventilator Mode VC+ Ventilator Mode CPAP Ventilator Mode VC+ Ventilator Mode VC+ Ventilator Mode VC+ Ventilator Mode VC+ Ventilator Mode VC+ Ventilator Mode VC+ Ventilator Mode VC+ Ventilator Mode VC+ Ventilator Tidal Volume 400 Setting Ventilator Tidal Volume 400 Setting Ventilator Tidal Volume 400 Setting Ventilator Tidal Volume 400 Setting Ventilator Tidal Volume 400 Setting Ventilator Tidal Volume 400 Setting Ventilator Tidal Volume 400 Setting Ventilator Tidal Volume 400 Setting Ventilator Tidal Volume 400 Setting Ventilator Respiratory Rate 12 Setting Ventilator Respiratory Rate 12 Setting Ventilator Respiratory Rate 12 Setting Ventilator Respiratory Rate 12 Setting Ventilator Respiratory Rate 12 Setting Ventilator Respiratory Rate 12 Setting Ventilator Respiratory Rate 12 Setting Ventilator Respiratory Rate 12 Setting Ventilator Respiratory Rate 12 Setting Actual Respiratory Rate 20 Actual Respiratory Rate 17 Actual Respiratory Rate 16 Actual Respiratory Rate 17 Actual Respiratory Rate 16 Actual Respiratory Rate 12 Actual Respiratory Rate 12 Actual Respiratory Rate 12 Actual Respiratory Rate 15 Actual Respiratory Rate 14 Positive End Expiratory 5 Pressure Positive End Expiratory 5 Pressure Positive End Expiratory 5 Pressure Positive End Expiratory 5 Pressure Positive End Expiratory 5 Pressure Positive End Expiratory 5 Pressure Positive End Expiratory 5 Pressure Positive End Expiratory 5 Pressure Positive End Expiratory 5 Pressure Positive End Expiratory 5 Pressure Positive End Expiratory 5 Pressure Peak Inspiratory Airway 11 Pressure Peak Inspiratory Airway 11 Pressure Peak Inspiratory Airway 11 Pressure Peak Inspiratory Airway 11 Pressure Peak Inspiratory Airway 14 Pressure Peak Inspiratory Airway 16 Pressure Peak Inspiratory Airway 15 Pressure Peak Inspiratory Airway 15 Pressure Peak Inspiratory Airway 15 Pressure Peak Inspiratory Airway 15 Pressure Results - Laboratory Findings CBC and BMP: 07/17/17 04:00 07/17/17 08:00 ABG ABG pH 7.39 pH Units (7.32-7.45) 07/17/17 04:43 ABG pCO2 55 mmHg (35-45) H 07/17/17 04:43 ABG pO2 93 mmHg (85-104) 07/17/17 04:43 ABG O2 Saturation 97 % (95-98) 07/17/17 04:43 Abnormal lab findings: Abnormal lab results WBC 11.7 K/mcL (4.3-11.1) H 07/17/17 04:00 RBC 2.79 M/mcL (3.82-4.97) L 07/17/17 04:00 Hgb 8.4 g/dL (11.5-15.4) L 07/17/17 04:00 Hct 25.5 % (35.3-44.9) L 07/17/17 04:00 RDW 15.1 % (11.5-14.5) H 07/17/17 04:00 Neutrophils # 10.8 K/mcL (1.6-8.9) H 07/17/17 04:00 Lymphocytes # 0.3 K/mcL (0.6-4.6) L 07/17/17 04:00 Anisocytosis 1+ (Not Present) A 07/14/17 05:20 ABG pCO2 55 mmHg (35-45) H 07/17/17 04:43 ABG HCO3 33 mEq/L (21-27) H 07/17/17 04:43 ABG Total CO2 35.0 mEq/L (20-26) H 07/17/17 04:43 ABG Base Excess 7.2 mEq/L (-2.0 to 3.0) H 07/17/17 04:43 Potassium 4.7 mEq/L (3.5-4.5) H 07/17/17 08:00 Carbon Dioxide 30 mEq/L (19-29) H 07/17/17 08:00 BUN 38 mg/dL (7-20) H 07/17/17 08:00 BUN/Creatinine Ratio 51 (6-26) H 07/17/17 08:00 Glucose 166 mg/dL (70-99) H 07/17/17 08:00 POC Glucose 151 (58-89) H 07/16/17 23:14 Calculated Osmolality 311 (280-300) H 07/17/17 08:00 Serum Total Protein 5.9 g/dL (6.0-8.3) L 07/16/17 03:00 Albumin 2.3 g/dL (3.5-5.0) L D 07/16/17 03:00 Globulin 3.6 g/dL (2.4-3.5) H 07/16/17 03:00 Albumin/Globulin Ratio 0.6 (1.1-2.2) L 07/16/17 03:00 Urine Clarity Turbid (Clear) A 07/11/17 17:45 Urine Protein 100 mg/dL (Neg-Trace) H 07/11/17 17:45 Urine Blood Moderate (Negative) H 07/11/17 17:45 Urine Nitrite Positive (Negative) A 07/11/17 17:45 Ur Leukocyte Esterase Moderate (Negative) H 07/11/17 17:45 Urine Microscopic RBC 15-30 per hpf (0-3) H 07/11/17 17:45 Urine Microscopic WBC TNTC per hpf (0-3) H 07/11/17 17:45 Ur Squamous Epith Cells Many per lpf (None-Few) H 07/11/17 17:45 Urine Bacteria Many per hpf (None-Few) H 07/11/17 17:45 Ur Culture Indicated? YES (NO) A 07/11/17 17:45 Enterobacteriac sp PCR DETECTED (Not Detect) A 07/12/17 17:40 E. coli (PCR) DETECTED (Not Detect) A 07/12/17 17:40 - Microbiology Findings Microbiology Findings: Microbiology, Last 48 Hours 07/13/17 20:55 Sputum Culture - Final Sputum Nohemy albicans 07/12/17 17:40 Blood Culture - Final Peripheral Venipuncture Escherichia coli ESBL - Diagnostic Findings Chest x-ray: report reviewed, image reviewed - Clinical Findings Intake & Output: Intake & Output 07/16/17 07/17/17 07/17/17 23:59 07:59 15:59 Intake Total 1315 / 1315 471 / 471 Output Total 625 / 625 500 / 500 Balance 690 / 690 -29 / -29 Weight 52.61 kg - VTE Documentation of Mechanical Device: Intermittent pneumatic compression device Consult Discharge Plan - Plan Referrals: Joshua Arana MD [Primary Care Provider] - <Deb Osborne - Last Filed: 07/17/17 10:01> Date of Encounter: 07/17/17 Objective PUL Vital signs: Last Vital Signs Temp 99.1 F 07/17/17 07:36 Pulse 116 07/17/17 09:00 Resp 20 07/17/17 09:00 BP 103/59 09/16/17 09:00 Pulse Ox 96 07/17/17 09:00 Ventilator Settings Ventilator Settings: Ventilator Settings, Last 8 Hours Ventilator Mode VC+ Ventilator Mode VC+ Ventilator Mode CPAP Ventilator Mode VC+ Ventilator Mode VC+ Ventilator Mode VC+ Ventilator Mode VC+ Ventilator Mode VC+ Ventilator Mode VC+ Ventilator Mode VC+ Ventilator Tidal Volume 400 Setting Ventilator Tidal Volume 400 Setting Ventilator Tidal Volume 400 Setting Ventilator Tidal Volume 400 Setting Ventilator Tidal Volume 400 Setting Ventilator Tidal Volume 400 Setting Ventilator Tidal Volume 400 Setting Ventilator Tidal Volume 400 Setting Ventilator Respiratory Rate 12 Setting Ventilator Respiratory Rate 12 Setting Ventilator Respiratory Rate 12 Setting Ventilator Respiratory Rate 12 Setting Ventilator Respiratory Rate 12 Setting Ventilator Respiratory Rate 12 Setting Ventilator Respiratory Rate 12 Setting Ventilator Respiratory Rate 12 Setting Actual Respiratory Rate 20 Actual Respiratory Rate 17 Actual Respiratory Rate 16 Actual Respiratory Rate 17 Actual Respiratory Rate 16 Actual Respiratory Rate 12 Actual Respiratory Rate 12 Actual Respiratory Rate 12 Actual Respiratory Rate 15 Positive End Expiratory 5 Pressure Positive End Expiratory 5 Pressure Positive End Expiratory 5 Pressure Positive End Expiratory 5 Pressure Positive End Expiratory 5 Pressure Positive End Expiratory 5 Pressure Positive End Expiratory 5 Pressure Positive End Expiratory 5 Pressure Positive End Expiratory 5 Pressure Positive End Expiratory 5 Pressure Peak Inspiratory Airway 11 Pressure Peak Inspiratory Airway 11 Pressure Peak Inspiratory Airway 11 Pressure Peak Inspiratory Airway 11 Pressure Peak Inspiratory Airway 14 Pressure Peak Inspiratory Airway 16 Pressure Peak Inspiratory Airway 15 Pressure Peak Inspiratory Airway 15 Pressure Peak Inspiratory Airway 15 Pressure Results - Laboratory Findings CBC and BMP: 07/17/17 04:00 07/17/17 08:00 ABG ABG pH 7.39 pH Units (7.32-7.45) 07/17/17 04:43 ABG pCO2 55 mmHg (35-45) H 07/17/17 04:43 ABG pO2 93 mmHg (85-104) 07/17/17 04:43 ABG O2 Saturation 97 % (95-98) 07/17/17 04:43 Abnormal lab findings: Abnormal lab results WBC 11.7 K/mcL (4.3-11.1) H 07/17/17 04:00 RBC 2.79 M/mcL (3.82-4.97) L 07/17/17 04:00 Hgb 8.4 g/dL (11.5-15.4) L 07/17/17 04:00 Hct 25.5 % (35.3-44.9) L 07/17/17 04:00 RDW 15.1 % (11.5-14.5) H 07/17/17 04:00 Neutrophils # 10.8 K/mcL (1.6-8.9) H 07/17/17 04:00 Lymphocytes # 0.3 K/mcL (0.6-4.6) L 07/17/17 04:00 Anisocytosis 1+ (Not Present) A 07/14/17 05:20 ABG pCO2 55 mmHg (35-45) H 07/17/17 04:43 ABG HCO3 33 mEq/L (21-27) H 07/17/17 04:43 ABG Total CO2 35.0 mEq/L (20-26) H 07/17/17 04:43 ABG Base Excess 7.2 mEq/L (-2.0 to 3.0) H 07/17/17 04:43 Potassium 4.7 mEq/L (3.5-4.5) H 07/17/17 08:00 Carbon Dioxide 30 mEq/L (19-29) H 07/17/17 08:00 BUN 38 mg/dL (7-20) H 07/17/17 08:00 BUN/Creatinine Ratio 51 (6-26) H 07/17/17 08:00 Glucose 166 mg/dL (70-99) H 07/17/17 08:00 POC Glucose 151 (58-89) H 07/16/17 23:14 Calculated Osmolality 311 (280-300) H 07/17/17 08:00 Serum Total Protein 5.9 g/dL (6.0-8.3) L 07/16/17 03:00 Albumin 2.3 g/dL (3.5-5.0) L D 07/16/17 03:00 Globulin 3.6 g/dL (2.4-3.5) H 07/16/17 03:00 Albumin/Globulin Ratio 0.6 (1.1-2.2) L 07/16/17 03:00 Urine Clarity Turbid (Clear) A 07/11/17 17:45 Urine Protein 100 mg/dL (Neg-Trace) H 07/11/17 17:45 Urine Blood Moderate (Negative) H 07/11/17 17:45 Urine Nitrite Positive (Negative) A 07/11/17 17:45 Ur Leukocyte Esterase Moderate (Negative) H 07/11/17 17:45 Urine Microscopic RBC 15-30 per hpf (0-3) H 07/11/17 17:45 Urine Microscopic WBC TNTC per hpf (0-3) H 07/11/17 17:45 Ur Squamous Epith Cells Many per lpf (None-Few) H 07/11/17 17:45 Urine Bacteria Many per hpf (None-Few) H 07/11/17 17:45 Ur Culture Indicated? YES (NO) A 07/11/17 17:45 Enterobacteriac sp PCR DETECTED (Not Detect) A 07/12/17 17:40 E. coli (PCR) DETECTED (Not Detect) A 07/12/17 17:40 - Microbiology Findings Microbiology Findings: Microbiology, Last 48 Hours 07/13/17 20:55 Sputum Culture - Final Sputum Nohemy albicans 07/12/17 17:40 Blood Culture - Final Peripheral Venipuncture Escherichia coli ESBL - Clinical Findings Intake & Output: Intake & Output 07/16/17 07/17/17 07/17/17 23:59 07:59 15:59 Intake Total 1315 / 1315 471 / 471 Output Total 625 / 625 500 / 500 Balance 690 / 690 -29 / -29 Weight 52.61 kg - Attending Attestation I examined this patient and my medical decision-making was reviewed with the Resident Physician. I agree with the documented findings, disposition and treatment plan as described except to the extent set forth below. Patient seen and examined. Labs, radiology, chart personally reviewed. 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 Patient was successfully extubated. Continue bronchodilators. Wean off the steroid. Cardiovascular: stable GI: Nutrition per dietary and GI prophylaxis per routine Heme: DVT prophylaxis per routine ID: Continue antibiotics and plan to de-escalation Renal; urine out put and renal funtion reviewed Endorcine: blood glucose is monitored Lines: all lines checked and no evidence of infections Skin: skin care to prevent pressure ulcers per nursing routine care Patient has generalized weakness and she will need physical therapy.
[2017-07-17] MEDS: Dexmedetomidine HCl 400 MCG/100 ML MLS IVC SCH ×2 (11:09→13:56)
[2017-07-17] MEDS: MethylPREDNISolone 40 MG/ML VIAL IVP SCH ×2 (11:13→17:36)
--- NOTE | 2017-07-17 11:30 | Cardiology Progress Note ---
Date of Encounter: 07/17/17 Time of Encounter: 11:27 Assessment and Plan (1) Mitral valve disease Current Visit: Yes Status: Acute Not significant on recent TANESHA, at this point no further cardiac needed as inpt. Cardio will sign off. Discussion w patient/family: The assessment and plan as outlined above was discussed with the patient and/or family members who expressed understanding and agreement. All questions were answered. Thank you for involving us in the care of your patient. Please call with any questions. Subjective Principal diagnosis: Sepsis Interval history: Clincally improved today. TANESHA surprisingly showed mild MR, normal LV, no vegetations. Objective Vital Signs, Last 4 Hours Temp Pulse Resp BP Pulse Ox 07/17/17 11:03 114 07/17/17 11:00 114 20 109/65 96 07/17/17 10:00 117 22 105/62 96 07/17/17 09:00 116 20 103/59 96 07/17/17 08:41 20 07/17/17 08:03 114 07/17/17 08:00 122 20 107/64 96 07/17/17 07:36 99.1 F General: Conversant, No Apparent Distress HEENT: Atraumatic, Normocephaly, Mucus Membranes Moist Neck: No JVD, Normal carotid pulses Cardiac: Other (soft sytolic murmur) Lungs: Other (scattered ronchi) Neuro: Other (somnolent) Abdomen: Soft, Non-Tender Skin: No rashes noted on visualized skin Extremities: Normal Pulses Results 07/17/17 04:00 07/17/17 08:00 Lab Results 07/16/17 07/16/17 07/17/17 08:44 21:30 04:00 WBC 11.7 H Hgb 8.4 L Hct 25.5 L Plt Count 297 Sodium Potassium 4.3 D Chloride Carbon Dioxide BUN Creatinine Glucose Calcium Magnesium 2.2 07/17/17 07/17/17 04:00 08:00 WBC Hgb Hct Plt Count Sodium 143 144 Potassium 4.5 4.7 H Chloride 108 107 Carbon Dioxide 28 30 H BUN 33 H D 38 H Creatinine 0.76 0.74 Glucose 168 H 166 H Calcium 9.7 9.5 Magnesium 2.2 - VTE Documentation of Mechanical Device: Intermittent pneumatic compression device Consult Discharge Plan - Plan Referrals: Joshua Arana MD [Primary Care Provider] -
[2017-07-17] MEDS ORDERED: *HR* FentaNYL (PF) 100 MCG/2 ML VIAL IVP PRN (14:04)
[2017-07-17] MEDS: ARIPiprazole 5 MG TABLET PO SCH (19:46)
[2017-07-17] MEDS: Norepinephrine 4 MG in D5% in Water 250 ML IVC SCH (22:13)
[2017-07-18] MEDS: *HR* Metoprolol 5 MG/5 ML VIAL IVP SCH ×5 (00:30→23:09)
[2017-07-18] MEDS: MethylPREDNISolone 40 MG/ML VIAL IVP SCH ×5 (00:30→23:09)
[2017-07-18] MEDS: Meropenem 1,000 MG in 0.9 % Sodium Chloride Mini Bag 100 ML IVPB SCH ×3 (02:33→18:15)
[2017-07-18 02:52] LABS: Hematocrit 26.2 % (35.3-44.9); Hemoglobin 8.4 g/dL (11.5-15.4); Immature Granulocytes % 1.7 % (0-4); Immature Platelets 3.6 % (1.1-6.1); Lymphocytes # 0.5 K/mcL (0.6-4.6); Lymphocytes % 5.6 %; Mean Corpuscular HGB Conc 32.1 g/dL (31.6-35.5); Mean Corpuscular Hemoglobin 29.4 pg (28.0-33.3); Mean Corpuscular Volume 91.6 fL (83.0-100.0); Mean Platelet Volume 10.7 fL (9.4-12.4); Monocytes # 0.4 K/mcL (0.0-1.3); Monocytes % 3.6 %; Neutrophils # 8.5 K/mcL (1.6-8.9); Platelet Count 354 K/mcL (140-400); Red Blood Count 2.86 M/mcL (3.82-4.97); Red Cell Distribution Width 14.7 % (11.5-14.5); Segmented Neutrophils % 89.1 %
[2017-07-18 03:03] LABS: BUN/Creatinine Ratio 53 (6-26); Blood Urea Nitrogen 40 mg/dL (7-20); Calcium 9.7 mg/dL (8.6-10.8); Carbon Dioxide 34 mEq/L (19-29); Chloride 108 mEq/L (98-109); Glucose 158 mg/dL (70-99); Osmolality,Calculated 319 (280-300); Potassium 4.8 mEq/L (3.5-4.5); Sodium 148 mEq/L (136-145); eGFR For African Americans > 60 (> 60); eGFR For Non-African Americans > 60 (> 60)
[2017-07-18] MEDS: Ipratropium/Albuterol Neb 3 ML IH SCH ×6 (03:25→23:37)
[2017-07-18] MEDS: Lacri-Lube 3.5 GM TUBE BOTH EYES SCH (05:57)
[2017-07-18] MEDS: *HR* Enoxaparin 40 MG/0.4 ML SYRINGE SQ SCH (06:42)
[2017-07-18] MEDS: Budesonide/Formoterol 80/4.5 MDI IH SCH ×2 (07:29→19:37)
[2017-07-18] MEDS: FLUoxetine 20 MG CAPSULE PO SCH ×2 (08:32→19:49)
[2017-07-18] MEDS: clonazePAM 0.5 MG TABLET PO SCH ×3 (08:33→19:49)
[2017-07-18] MEDS: Famotidine 20 MG TABLET PO SCH ×2 (08:33→19:49)
[2017-07-18] MEDS: Nicotine 7 MG PATCH.TD24 TD SCH (08:33)
[2017-07-18] MEDS ORDERED: Furosemide 40 MG TABLET PO ONE (09:10)
--- NOTE | 2017-07-18 10:35 | Pulmonology Progress Note ---
<Marla Viera - Last Filed: 07/18/17 10:44> Date of Encounter: 07/18/17 Time of Encounter: 09:00 Assessment and Plan (1) Sepsis Current Visit: Yes Status: Acute Patient now extubated. Vital signs are stable without pressors. Blood culture positive for ESBL. White cell count now 9.6. Continue meropenem 1 g daily. Solu-Medrol decreased to 40mg. Blood culture repeated and is pending at this time. Qualifiers: Sepsis type: Escherichia coli Qualified Code(s): A41.51 - Sepsis due to Escherichia coli [E. coli] (2) Acute respiratory failure with hypoxia Current Visit: Yes Status: Acute Patient with oxygen saturations in the 80s and 90s on BiPAP and nasal cannula. Patient tolerating well with no concerns for respiratory distress at this time. Patient very anxious on BiPAP so we added ativan PRN for anxiety. (3) Hypokalemia Current Visit: Yes Status: Resolved Patient on electrolyte replacement protocol and potassium WNL at 4.5 (4) Mitral valve disease Current Visit: Yes Status: Acute TTE demonstrates left ventricular ejection fraction 65%, possible ruptured mitral valve cord secondary to severe MR. TANESHA completed with no concerns. Cardiology is on board. (5) Pyelonephritis, acute Current Visit: Yes Status: Acute Urine culture positive for ESBL. Blood culture positive for Escherichia coli. Continue meropenem 1 mg daily. (6) Urolithiasis Current Visit: Yes Status: Acute Status post cystoscopy and right ureter stent placement. Escherichia coli growing out of Xiong and renal aspirate. Continue IV antibiotics. Urology consulted. Qualifiers: Urinary calculus location: ureter Qualified Code(s): N20.1 - Calculus of ureter (7) Tobacco dependence Current Visit: Yes Status: Acute Continue nicotine patch (8) DVT prophylaxis Current Visit: Yes Status: Acute Patient currently wearing SCDs Subjective Principal diagnosis: Sepsis Interval history: No episodes overnight. Patient did well on BiPAP overnight. Patient does have a high level of anxiety and pressadex had to be increased overnight. Plan to wean her off o pressadex but adding ativan PO PRN for agitation/anxiety. Hope to transfer to the floor tomorrow. Objective PUL Vital signs: Last Vital Signs Temp 96.7 F L 07/18/17 08:22 Pulse 94 07/18/17 09:00 Resp 20 07/18/17 09:00 BP 131/80 07/18/17 09:00 Pulse Ox 94 07/18/17 09:00 General appearance: no acute distress, alert Eyes: nonicteric ENT: oropharynx moist Neck: supple, no JVD Effort: normal Auscultation: right: rhonchi, bilateral: diminished breath sounds Cardiovascular: regular rate and rhythm Gastrointestinal: normoactive bowel sounds, soft, non-distended Integumentary: normal Extremities: no cyanosis, edema Musculoskeletal: no deformities Gait: normal posture normal mental status, non-focal exam mood appropriate, anxious Results - Laboratory Findings CBC and BMP: 07/18/17 02:41 07/18/17 02:41 ABG ABG pH 7.39 pH Units (7.32-7.45) 07/17/17 04:43 ABG pCO2 55 mmHg (35-45) H 07/17/17 04:43 ABG pO2 93 mmHg (85-104) 07/17/17 04:43 ABG O2 Saturation 97 % (95-98) 07/17/17 04:43 Abnormal lab findings: Abnormal lab results RBC 2.86 M/mcL (3.82-4.97) L 07/18/17 02:41 Hgb 8.4 g/dL (11.5-15.4) L 07/18/17 02:41 Hct 26.2 % (35.3-44.9) L 07/18/17 02:41 RDW 14.7 % (11.5-14.5) H 07/18/17 02:41 Lymphocytes # 0.5 K/mcL (0.6-4.6) L 07/18/17 02:41 Anisocytosis 1+ (Not Present) A 07/14/17 05:20 ABG pCO2 55 mmHg (35-45) H 07/17/17 04:43 ABG HCO3 33 mEq/L (21-27) H 07/17/17 04:43 ABG Total CO2 35.0 mEq/L (20-26) H 07/17/17 04:43 ABG Base Excess 7.2 mEq/L (-2.0 to 3.0) H 07/17/17 04:43 Sodium 148 mEq/L (136-145) H 07/18/17 02:41 Potassium 4.8 mEq/L (3.5-4.5) H 07/18/17 02:41 Carbon Dioxide 34 mEq/L (19-29) H 07/18/17 02:41 BUN 40 mg/dL (7-20) H 07/18/17 02:41 BUN/Creatinine Ratio 53 (6-26) H 07/18/17 02:41 Glucose 158 mg/dL (70-99) H 07/18/17 02:41 POC Glucose 158 (58-89) H 07/17/17 23:03 Calculated Osmolality 319 (280-300) H 07/18/17 02:41 Serum Total Protein 5.9 g/dL (6.0-8.3) L 07/16/17 03:00 Albumin 2.3 g/dL (3.5-5.0) L D 07/16/17 03:00 Globulin 3.6 g/dL (2.4-3.5) H 07/16/17 03:00 Albumin/Globulin Ratio 0.6 (1.1-2.2) L 07/16/17 03:00 Urine Clarity Turbid (Clear) A 07/11/17 17:45 Urine Protein 100 mg/dL (Neg-Trace) H 07/11/17 17:45 Urine Blood Moderate (Negative) H 07/11/17 17:45 Urine Nitrite Positive (Negative) A 07/11/17 17:45 Ur Leukocyte Esterase Moderate (Negative) H 07/11/17 17:45 Urine Microscopic RBC 15-30 per hpf (0-3) H 07/11/17 17:45 Urine Microscopic WBC TNTC per hpf (0-3) H 07/11/17 17:45 Ur Squamous Epith Cells Many per lpf (None-Few) H 07/11/17 17:45 Urine Bacteria Many per hpf (None-Few) H 07/11/17 17:45 Ur Culture Indicated? YES (NO) A 07/11/17 17:45 Enterobacteriac sp PCR DETECTED (Not Detect) A 07/12/17 17:40 E. coli (PCR) DETECTED (Not Detect) A 07/12/17 17:40 - Microbiology Findings Microbiology Findings: Microbiology, Last 48 Hours 07/13/17 20:55 Sputum Culture - Final Sputum Nohemy albicans - Clinical Findings Intake & Output: Intake & Output 07/17/17 07/18/17 07/18/17 23:59 07:59 15:59 Intake Total 115.7 / 115.7 100 / 100 204.3 / 204.3 Output Total 950 / 950 150 / 150 Balance -834.3 / -834.3 -50 / -50 204.3 / 204.3 Weight 51.7 kg - VTE Documentation of Mechanical Device: Intermittent pneumatic compression device Consult Discharge Plan - Plan Referrals: Joshua Arana MD [Primary Care Provider] - <Deb Osborne - Last Filed: 07/18/17 10:53> Date of Encounter: 07/18/17 Objective PUL Vital signs: Last Vital Signs Temp 96.7 F L 07/18/17 08:22 Pulse 94 07/18/17 09:00 Resp 20 07/18/17 09:00 BP 131/80 07/18/17 09:00 Pulse Ox 94 07/18/17 09:00 Results - Laboratory Findings CBC and BMP: 07/18/17 02:41 07/18/17 02:41 ABG ABG pH 7.39 pH Units (7.32-7.45) 07/17/17 04:43 ABG pCO2 55 mmHg (35-45) H 07/17/17 04:43 ABG pO2 93 mmHg (85-104) 07/17/17 04:43 ABG O2 Saturation 97 % (95-98) 07/17/17 04:43 Abnormal lab findings: Abnormal lab results RBC 2.86 M/mcL (3.82-4.97) L 07/18/17 02:41 Hgb 8.4 g/dL (11.5-15.4) L 07/18/17 02:41 Hct 26.2 % (35.3-44.9) L 07/18/17 02:41 RDW 14.7 % (11.5-14.5) H 07/18/17 02:41 Lymphocytes # 0.5 K/mcL (0.6-4.6) L 07/18/17 02:41 Anisocytosis 1+ (Not Present) A 07/14/17 05:20 ABG pCO2 55 mmHg (35-45) H 07/17/17 04:43 ABG HCO3 33 mEq/L (21-27) H 07/17/17 04:43 ABG Total CO2 35.0 mEq/L (20-26) H 07/17/17 04:43 ABG Base Excess 7.2 mEq/L (-2.0 to 3.0) H 07/17/17 04:43 Sodium 148 mEq/L (136-145) H 07/18/17 02:41 Potassium 4.8 mEq/L (3.5-4.5) H 07/18/17 02:41 Carbon Dioxide 34 mEq/L (19-29) H 07/18/17 02:41 BUN 40 mg/dL (7-20) H 07/18/17 02:41 BUN/Creatinine Ratio 53 (6-26) H 07/18/17 02:41 Glucose 158 mg/dL (70-99) H 07/18/17 02:41 POC Glucose 158 (58-89) H 07/17/17 23:03 Calculated Osmolality 319 (280-300) H 07/18/17 02:41 Serum Total Protein 5.9 g/dL (6.0-8.3) L 07/16/17 03:00 Albumin 2.3 g/dL (3.5-5.0) L D 07/16/17 03:00 Globulin 3.6 g/dL (2.4-3.5) H 07/16/17 03:00 Albumin/Globulin Ratio 0.6 (1.1-2.2) L 07/16/17 03:00 Urine Clarity Turbid (Clear) A 07/11/17 17:45 Urine Protein 100 mg/dL (Neg-Trace) H 07/11/17 17:45 Urine Blood Moderate (Negative) H 07/11/17 17:45 Urine Nitrite Positive (Negative) A 07/11/17 17:45 Ur Leukocyte Esterase Moderate (Negative) H 07/11/17 17:45 Urine Microscopic RBC 15-30 per hpf (0-3) H 07/11/17 17:45 Urine Microscopic WBC TNTC per hpf (0-3) H 07/11/17 17:45 Ur Squamous Epith Cells Many per lpf (None-Few) H 07/11/17 17:45 Urine Bacteria Many per hpf (None-Few) H 07/11/17 17:45 Ur Culture Indicated? YES (NO) A 07/11/17 17:45 Enterobacteriac sp PCR DETECTED (Not Detect) A 07/12/17 17:40 E. coli (PCR) DETECTED (Not Detect) A 07/12/17 17:40 - Microbiology Findings Microbiology Findings: Microbiology, Last 48 Hours 07/13/17 20:55 Sputum Culture - Final Sputum Nohemy albicans - Clinical Findings Intake & Output: Intake & Output 07/17/17 07/18/17 07/18/17 23:59 07:59 15:59 Intake Total 115.7 / 115.7 100 / 100 204.3 / 204.3 Output Total 950 / 950 150 / 150 Balance -834.3 / -834.3 -50 / -50 204.3 / 204.3 Weight 51.7 kg - Attending Attestation I examined this patient and my medical decision-making was reviewed with the Resident Physician. I agree with the documented findings, disposition and treatment plan as described except to the extent set forth below. Patient seen and examined. Labs, radiology, chart personally reviewed. 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 Continue bronchodilators. Cardiovascular: stable GI: Nutrition per dietary and GI prophylaxis per routine Heme: DVT prophylaxis per routine ID: Continue antibiotics and plan to de-escalation Renal; urine out put and renal funtion reviewed. Diuresis today. Endorcine: blood glucose is monitored Lines: all lines checked and no evidence of infections Skin: skin care to prevent pressure ulcers per nursing routine care Patient remained tenuous from pulmonary standpoint and will monitor in ICU for next 1-2 days.
[2017-07-18] MEDS: *HR* LORazepam 2 MG/ML VIAL IVP PRN ×3 (10:37→23:09)
[2017-07-18] MEDS: ARIPiprazole 5 MG TABLET PO SCH (19:49)
[2017-07-18] MEDS: Norepinephrine 4 MG in D5% in Water 250 ML IVC SCH (19:49)
[2017-07-18] MEDS: *HR* HYDROcodone/Acet 5/325 mg TABLET PO PRN (23:09)
[2017-07-19] MEDS: Ipratropium/Albuterol Neb 3 ML IH SCH ×6 (03:26→23:27)
[2017-07-19] MEDS: Meropenem 1,000 MG in 0.9 % Sodium Chloride Mini Bag 100 ML IVPB SCH ×3 (03:30→18:01)
[2017-07-19 03:38] LABS: Basophils % 0.1 %; Hematocrit 26.4 % (35.3-44.9); Hemoglobin 8.6 g/dL (11.5-15.4); Immature Granulocytes % 1.9 % (0-4); Lymphocytes # 0.5 K/mcL (0.6-4.6); Lymphocytes % 5.1 %; Mean Corpuscular HGB Conc 32.6 g/dL (31.6-35.5); Mean Corpuscular Hemoglobin 29.5 pg (28.0-33.3); Mean Corpuscular Volume 90.4 fL (83.0-100.0); Mean Platelet Volume 10.5 fL (9.4-12.4); Monocytes # 0.3 K/mcL (0.0-1.3); Monocytes % 3.6 %; Neutrophils # 8.3 K/mcL (1.6-8.9); Platelet Count 384 K/mcL (140-400); Red Blood Count 2.92 M/mcL (3.82-4.97); Red Cell Distribution Width 14.3 % (11.5-14.5); Segmented Neutrophils % 89.3 %
[2017-07-19 03:55] LABS: Alanine Aminotransferase 77 Units/L (0-55); Albumin 2.5 g/dL (3.5-5.0); Albumin/Globulin Ratio 0.7 (1.1-2.2); Alkaline Phosphatase 76 Units/L (38-126); Aspartate Amino Transferase 86 Units/L (5-34); BUN/Creatinine Ratio 51 (6-26); Blood Urea Nitrogen 36 mg/dL (7-20); Calcium 9.7 mg/dL (8.6-10.8); Carbon Dioxide 32 mEq/L (19-29); Chloride 103 mEq/L (98-109); Globulin 3.4 g/dL (2.4-3.5); Glucose 130 mg/dL (70-99); Magnesium 2.2 mg/dL (1.6-2.6); Osmolality,Calculated 306 (280-300); Phosphorous 3.1 mg/dL (2.3-4.7); Potassium 4.1 mEq/L (3.5-4.5); Sodium 143 mEq/L (136-145); Total Protein 5.9 g/dL (6.0-8.3); eGFR For African Americans > 60 (> 60); eGFR For Non-African Americans > 60 (> 60)
[2017-07-19 03:57] LABS: Bilirubin,Total 1.1 mg/dL (0.2-1.2)
[2017-07-19] MEDS: *HR* Metoprolol 5 MG/5 ML VIAL IVP SCH ×4 (05:34→23:49)
[2017-07-19] MEDS: *HR* Enoxaparin 40 MG/0.4 ML SYRINGE SQ SCH (05:34)
[2017-07-19] MEDS: *HR* LORazepam 2 MG/ML VIAL IVP PRN (05:34)
[2017-07-19] MEDS: MethylPREDNISolone 40 MG/ML VIAL IVP SCH (05:34)
--- NOTE | 2017-07-19 07:37 | Pulmonology Progress Note ---
Date of Encounter: 07/19/17 Time of Encounter: 07:50 Assessment and Plan (1) Sepsis Current Visit: Yes Status: Acute Patient is intubated and on mechanical ventilation. Vital signs are stable without pressors. Currently trying to wean her off from her sedation. Blood culture positive for ESBL. White cell count is stable and normal. Patient continues to be tachycardic. Continue meropenem 1 g daily, Solu-Medrol 60 mg started. Patient still has no bowel movement, starting her on MiraLAX and senna. Repeat blood culture 2 Continue to monitor with a.m. labs. Qualifiers: Sepsis type: Escherichia coli Qualified Code(s): A41.51 - Sepsis due to Escherichia coli [E. coli] (2) Acute respiratory failure with hypoxia Current Visit: Yes Status: Acute Patient's vital signs are stable. She is intubated and on mechanical ventilation, ventilation settings reviewed by Dr. Osborne. Patient is on Symbicort and Solu-Medrol. Continue to monitor. Plan is to wean her off from her sedation but as patient has a history of anxiety we will restart her Klonopin and Abilify. Patient had abnormal results from echo, she will receive a TANESHA later today. CPAP trial in the evening. (3) Mitral valve disease Current Visit: Yes Status: Acute TTE demonstrates left ventricular ejection fraction 65%, possible ruptured mitral valve cord secondary to severe MR. TANESHA today to further evaluate valvular dysfunction. Cardiology is on board. Patient is weaned off from pressors and we will CPAP trial later today. We will start her on beta jonatan , diuretics when able. (4) Hypokalemia Current Visit: Yes Status: Resolved Potassium is replaced today. Continue electrolyte protocol (5) Pyelonephritis, acute Current Visit: Yes Status: Acute Urine culture positive for ESBL. Blood culture positive for Escherichia coli. Continue meropenem 1 mg daily. (6) Urolithiasis Current Visit: Yes Status: Acute Status post day #2 cystoscopy and right ureter stent placement. Escherichia coli growing out of Xiong and renal aspirate. Continue IV antibiotics. Urology is on board. Qualifiers: Urinary calculus location: ureter Qualified Code(s): N20.1 - Calculus of ureter (7) Tobacco dependence Current Visit: Yes Status: Acute Continue nicotine patch. (8) DVT prophylaxis Current Visit: Yes Status: Acute SCDs for DVT prophylaxis Subjective Principal diagnosis: Sepsis Interval history: Patient is intubated and subjective is limited. She opens her eyes but unable to follow verbal commands. She continues to be confused. No overnight events. Voiding without difficulty via catheter. No bowel movements. Objective PUL Vital signs: Last Vital Signs Temp 98.7 F 07/19/17 07:22 Pulse 92 07/19/17 05:52 Resp 27 07/19/17 05:52 BP 140/88 07/19/17 05:00 Pulse Ox 92 07/19/17 05:52 Results - Laboratory Findings CBC and BMP: 07/19/17 03:30 07/19/17 03:30 ABG ABG pH 7.39 pH Units (7.32-7.45) 07/17/17 04:43 ABG pCO2 55 mmHg (35-45) H 07/17/17 04:43 ABG pO2 93 mmHg (85-104) 07/17/17 04:43 ABG O2 Saturation 97 % (95-98) 07/17/17 04:43 Abnormal lab findings: Abnormal lab results RBC 2.92 M/mcL (3.82-4.97) L 07/19/17 03:30 Hgb 8.6 g/dL (11.5-15.4) L 07/19/17 03:30 Hct 26.4 % (35.3-44.9) L 07/19/17 03:30 Lymphocytes # 0.5 K/mcL (0.6-4.6) L 07/19/17 03:30 Anisocytosis 1+ (Not Present) A 07/14/17 05:20 ABG pCO2 55 mmHg (35-45) H 07/17/17 04:43 ABG HCO3 33 mEq/L (21-27) H 07/17/17 04:43 ABG Total CO2 35.0 mEq/L (20-26) H 07/17/17 04:43 ABG Base Excess 7.2 mEq/L (-2.0 to 3.0) H 07/17/17 04:43 Carbon Dioxide 32 mEq/L (19-29) H 07/19/17 03:30 BUN 36 mg/dL (7-20) H 07/19/17 03:30 BUN/Creatinine Ratio 51 (6-26) H 07/19/17 03:30 Glucose 130 mg/dL (70-99) H 07/19/17 03:30 POC Glucose 136 (58-89) H 07/18/17 23:30 Calculated Osmolality 306 (280-300) H 07/19/17 03:30 AST 86 Units/L (5-34) H 07/19/17 03:30 ALT 77 Units/L (0-55) H 07/19/17 03:30 Serum Total Protein 5.9 g/dL (6.0-8.3) L 07/19/17 03:30 Albumin 2.5 g/dL (3.5-5.0) L 07/19/17 03:30 Albumin/Globulin Ratio 0.7 (1.1-2.2) L 07/19/17 03:30 Urine Clarity Turbid (Clear) A 07/11/17 17:45 Urine Protein 100 mg/dL (Neg-Trace) H 07/11/17 17:45 Urine Blood Moderate (Negative) H 07/11/17 17:45 Urine Nitrite Positive (Negative) A 07/11/17 17:45 Ur Leukocyte Esterase Moderate (Negative) H 07/11/17 17:45 Urine Microscopic RBC 15-30 per hpf (0-3) H 07/11/17 17:45 Urine Microscopic WBC TNTC per hpf (0-3) H 07/11/17 17:45 Ur Squamous Epith Cells Many per lpf (None-Few) H 07/11/17 17:45 Urine Bacteria Many per hpf (None-Few) H 07/11/17 17:45 Ur Culture Indicated? YES (NO) A 07/11/17 17:45 Enterobacteriac sp PCR DETECTED (Not Detect) A 07/12/17 17:40 E. coli (PCR) DETECTED (Not Detect) A 07/12/17 17:40 - Microbiology Findings Microbiology Findings: Microbiology, Last 48 Hours 07/12/17 17:40 Blood Culture - Final Peripheral Venipuncture No growth. 07/16/17 11:01 Blood Culture - Preliminary Peripheral Venipuncture No growth. 07/16/17 10:56 Blood Culture - Preliminary Peripheral Venipuncture No growth. 07/13/17 20:55 Sputum Culture - Final Sputum Nohemy albicans - Clinical Findings Intake & Output: Intake & Output 09/07/18/17 07/19/17 15:59 23:59 07:59 Intake Total 429.3 / 429.3 300 / 300 100 / 100 Output Total 950 / 950 800 / 800 550 / 550 Balance -520.7 / -520.7 -500 / -500 -450 / -450 Weight 49.8 kg - VTE Documentation of Mechanical Device: Intermittent pneumatic compression device Consult Discharge Plan - Plan Referrals: Joshua Arana MD [Primary Care Provider] -
[2017-07-19] MEDS ORDERED: *HR* LORazepam 0.5 MG TABLET PO PRN ×2 (07:39→09:58)
[2017-07-19] MEDS: Nicotine 7 MG PATCH.TD24 TD SCH (08:08)
[2017-07-19] MEDS: FLUoxetine 20 MG CAPSULE PO SCH ×2 (08:08→19:31)
[2017-07-19] MEDS: clonazePAM 0.5 MG TABLET PO SCH ×3 (08:09→19:31)
[2017-07-19] MEDS: Famotidine 20 MG TABLET PO SCH ×2 (08:09→19:31)
[2017-07-19] MEDS: Budesonide/Formoterol 80/4.5 MDI IH SCH ×3 (08:27→20:29)
[2017-07-19] MEDS ORDERED: predniSONE 20 MG TABLET PO SCH (09:00)
[2017-07-19] MEDS ORDERED: Sennosides 8.6 MG TABLET PO SCH (09:00)
[2017-07-19] MEDS ORDERED: Naloxone 0.4 MG/ML INJ IVP PRN (09:58)
[2017-07-19] MEDS ORDERED: *HR* Morphine 2 MG/ML SYRINGE IVP PRN (09:58)
[2017-07-19] MEDS ORDERED: NON-FORMULARY MEDICATION 1 EACH EACH (Fluoxetine Hcl [Fluoxetine Hcl] 40 MG) PO SCH (09:58)
[2017-07-19] MEDS ORDERED: Acetaminophen 325 MG TABLET PO PRN (09:58)
[2017-07-19] MEDS ORDERED: *HR* HYDROcodone/Acet 5/325 mg TABLET PO PRN (09:58)
[2017-07-19] MEDS ORDERED: Ipratropium/Albuterol Neb 3 ML IH PRN (09:58)
[2017-07-19] MEDS ORDERED: Potassium Chloride Elixir 20 MEQ/15 ML UDC PO PRN (09:58)
[2017-07-19] MEDS ORDERED: *HR* FentaNYL (PF) 100 MCG/2 ML VIAL IVP PRN (09:58)
[2017-07-19] MEDS: ARIPiprazole 5 MG TABLET PO SCH (19:31)
[2017-07-19] MEDS: Sennosides 8.6 MG TABLET PO SCH (19:31)
[2017-07-20] MEDS: Meropenem 1,000 MG in 0.9 % Sodium Chloride Mini Bag 100 ML IVPB SCH ×3 (03:22→17:57)
[2017-07-20] MEDS: Ipratropium/Albuterol Neb 3 ML IH SCH ×5 (03:36→19:45)
[2017-07-20] MEDS: *HR* Enoxaparin 40 MG/0.4 ML SYRINGE SQ SCH (05:18)
[2017-07-20] MEDS: *HR* Metoprolol 5 MG/5 ML VIAL IVP SCH (05:18)
[2017-07-20] MEDS: Budesonide/Formoterol 80/4.5 MDI IH SCH ×2 (07:48→19:46)
[2017-07-20] MEDS: clonazePAM 0.5 MG TABLET PO SCH ×3 (09:52→20:15)
[2017-07-20] MEDS: Sennosides 8.6 MG TABLET PO SCH ×2 (09:52→20:15)
[2017-07-20] MEDS: predniSONE 20 MG TABLET PO SCH (09:52)
[2017-07-20] MEDS: Famotidine 20 MG TABLET PO SCH ×2 (09:52→20:16)
[2017-07-20] MEDS: Nicotine 7 MG PATCH.TD24 TD SCH (09:53)
[2017-07-20] MEDS: Ondansetron 4 MG/2 ML VIAL IVP PRN ×2 (09:55→18:01)
[2017-07-20] MEDS: FLUoxetine 20 MG CAPSULE PO SCH ×2 (09:55→20:15)
--- NOTE | 2017-07-20 09:55 | Internal Med Progress Note ---
Date of Encounter: 07/20/17 Time of Encounter: 09:00 - Assessment and plan (1) Acute respiratory failure with hypoxia Current Visit: Yes Status: Acute Assessment and plan: Likely due to sepsis and underlying COPD. Patient has been intubated and currently extubated, saturating well on nasal cannula. Continue supplemental oxygen along with nocturnal BiPAP support as needed. Continue when necessary bronchodilators and inhaled corticosteroids. (2) Urolithiasis Current Visit: Yes Status: Acute Assessment and plan: Patient has been evaluated by urology and underwent cystoscopy and right ureteral stent placement. We will discontinue Xiong catheter, recommend outpatient urology follow-up. Qualifiers: Urinary calculus location: ureter Qualified Code(s): N20.1 - Calculus of ureter (3) Sepsis Current Visit: Yes Status: Acute Assessment and plan: Sepsis secondary to complicated UTI and ureterolithiasis. Urine culture grows ESBL Escherichia coli, has been on IV meropenem, continue for now. Physical and occupational therapy evaluation as patient lives alone and seems to be significantly deconditioned. Qualifiers: Sepsis type: Escherichia coli Qualified Code(s): A41.51 - Sepsis due to Escherichia coli [E. coli] (4) Urinary tract infection Current Visit: Yes Status: Acute Assessment and plan: Plan as above. Qualifiers: Urinary tract infection type: site unspecified Hematuria presence: without hematuria Qualified Code(s): N39.0 - Urinary tract infection, site not specified (5) COPD (chronic obstructive pulmonary disease) Current Visit: Yes Status: Chronic Qualifiers: COPD type: unspecified COPD Qualified Code(s): J44.9 - Chronic obstructive pulmonary disease, unspecified (6) Tobacco dependence Current Visit: Yes Status: Chronic Assessment and plan: Continue nicotine transdermal patch. Patient is not receptive to smoking cessation counseling at this time. (7) Mitral valve disease Current Visit: Yes Status: Ruled-out Assessment and plan: Transthoracic echocardiogram showed severe mitral regurgitation and possible ruptured chordae. Cardiology evaluation appreciated, transesophageal echocardiogram showed no significant mitral valve disease and no further intervention recommended at this time. - Subjective Interval history: Appears mildly confused but able to answer questions, although cannot provide specific details; denies chest pain, cough, shortness of breath, abdominal pain ; lives alone, has no HHS; - Constitutional Vitals: Temp Pulse Resp BP Pulse Ox 96.8 F L 80 32 124/74 100 07/20/17 07:16 07/20/17 08:00 07/20/17 08:00 07/20/17 08:00 07/20/17 08:00 General appearance: Present: cachectic, A&O X 3, answers questions appropriately - Respiratory Respiratory exam: Present: decreased breath sounds (B/L decreased air entry), CTAB. Absent: accessory muscle use, rales, rhonchi, wheezes - Cardiovascular Cardiovascular exam: Present: RRR, +S1, +S2, tachycardia. Absent: diastolic murmur, gallop, rubs, systolic murmur - GI/Abdominal GI/Abdominal exam: Present: normal bowel sounds, soft, no peritoneal signs. Absent: distended, tenderness - Extremities Exam Extremities exam: Present: full ROM, warm, radial pulses palpable and symmetrical. Absent: calf tenderness, cyanotic, pedal edema - Neurological Exam Neurological exam: Present: CN II-XII intact, oriented X3, no focal deficits. Absent: pronater drift, facial droop, speech deficit - Psychiatric Psychiatric exam: Present: depressed, flat affect - Skin Skin exam: Present: dry, intact Internal Medicine: Result - Labs CBC & Chem 7: 07/22/17 06:03 07/22/17 06:03 - ABG Interpretation ABG results: ABG ABG pH 7.39 pH Units (7.32-7.45) 07/17/17 04:43 ABG pCO2 55 mmHg (35-45) H 07/17/17 04:43 ABG pO2 93 mmHg (85-104) 07/17/17 04:43 ABG O2 Saturation 97 % (95-98) 07/17/17 04:43 - VTE Documentation of Mechanical Device: Venous foot pump, device Consult Discharge Plan - Plan Instructions: Prednisone (By mouth), Ipratropium/Albuterol (By breathing), Ertapenem (Injection), Budesonide/Formoterol (By breathing), Acute Respiratory Distress Syndrome (DC), Urinary Tract Infection in Women (DC), Chronic Obstructive Pulmonary Disease (DC), Sepsis (DC), Chronic Hypertension (DC) Additional Instructions: F/up with PCP in 1-2 weeks F/up with [facility] in 3-4 weeks The doctor offices will contact you with date and time of appointment. Referrals: Joshua Arana MD [Primary Care Provider] - Prescriptions: Ipratropium/Albuterol Neb [Duoneb] 3 ml IH Q6HR PRN 30 Days vial.neb PRN Reason: Shortness Of Breath/Wheezing Budesonide/Formoterol 80/4.5 [Symbicort 80/4.5] 2 puff IH BIDR 30 Days inhaler Nebulizer [Aeroeclipse] 1 each MC Q6H PRN #1 each PRN Reason: Shortness Of Breath/Wheezing Nebulizer Accessories [Sootheneb [id number] Adult Mask] 1 each MC Q6H PRN 30 Days each PRN Reason: Shortness Of Breath/Wheezing Nebulizer Accessories [Sootheneb [id number] Mesh Cap] 1 each MC Q6H PRN 30 Days each PRN Reason: Shortness Of Breath/Wheezing Nebulizer Accessories [Sootheneb [id number] Med Cup] 1 each MC Q6H PRN 30 Days each PRN Reason: Shortness Of Breath/Wheezing predniSONE [PredniSONE] 40 mg PO DAILY #6 tablet
[2017-07-20] MEDS: ARIPiprazole 5 MG TABLET PO SCH (20:15)
[2017-07-21] MEDS: Ipratropium/Albuterol Neb 3 ML IH SCH ×6 (00:40→19:43)
[2017-07-21] MEDS: Meropenem 1,000 MG in 0.9 % Sodium Chloride Mini Bag 100 ML IVPB SCH (01:31)
[2017-07-21 04:09] LABS: Basophils % 0.1 %; Eosinophils # 0.4 K/mcL (0.0-0.6); Eosinophils % 3.4 %; Hemoglobin 9.1 g/dL (11.5-15.4); Immature Granulocytes % 1.8 % (0-4); Lymphocytes # 1.6 K/mcL (0.6-4.6); Lymphocytes % 12.3 %; Mean Corpuscular HGB Conc 33.7 g/dL (31.6-35.5); Mean Corpuscular Hemoglobin 29.7 pg (28.0-33.3); Mean Corpuscular Volume 88.2 fL (83.0-100.0); Mean Platelet Volume 10.2 fL (9.4-12.4); Monocytes # 0.5 K/mcL (0.0-1.3); Monocytes % 3.9 %; Neutrophils # 10.1 K/mcL (1.6-8.9); Platelet Count 419 K/mcL (140-400); Red Blood Count 3.06 M/mcL (3.82-4.97); Red Cell Distribution Width 13.7 % (11.5-14.5); Segmented Neutrophils % 78.5 %
[2017-07-21 04:10] LABS: BUN/Creatinine Ratio 25 (6-26); Blood Urea Nitrogen 16 mg/dL (7-20); Carbon Dioxide 28 mEq/L (19-29); Chloride 99 mEq/L (98-109); Glucose 85 mg/dL (70-99); Osmolality,Calculated 284 (280-300); Potassium 3.2 mEq/L (3.5-4.5); Sodium 137 mEq/L (136-145); eGFR For African Americans > 60 (> 60); eGFR For Non-African Americans > 60 (> 60)
[2017-07-21] MEDS: *HR* Enoxaparin 40 MG/0.4 ML SYRINGE SQ SCH (06:07)
[2017-07-21] MEDS: clonazePAM 0.5 MG TABLET PO SCH ×3 (07:44→23:01)
[2017-07-21] MEDS: Sennosides 8.6 MG TABLET PO SCH ×2 (07:44→20:54)
[2017-07-21] MEDS: Famotidine 20 MG TABLET PO SCH ×2 (07:44→20:53)
[2017-07-21] MEDS ORDERED: Potassium Chloride Elixir 20 MEQ/15 ML UDC PO ONE (07:44)
[2017-07-21] MEDS: predniSONE 20 MG TABLET PO SCH (07:45)
[2017-07-21] MEDS: Nicotine 7 MG PATCH.TD24 TD SCH (07:45)
[2017-07-21] MEDS: FLUoxetine 20 MG CAPSULE PO SCH ×2 (07:45→20:53)
[2017-07-21] MEDS: Budesonide/Formoterol 80/4.5 MDI IH SCH ×2 (07:47→19:43)
[2017-07-21 08:07] LABS: Alanine Aminotransferase 50 Units/L (0-55); Albumin 2.4 g/dL (3.5-5.0); Albumin/Globulin Ratio 0.9 (1.1-2.2); Alkaline Phosphatase 64 Units/L (38-126); Aspartate Amino Transferase 41 Units/L (5-34); Bilirubin,Direct 0.4 mg/dL (0.0-0.5); Bilirubin,Indirect 0.3 mg/dL (0.0-1.2); Bilirubin,Total 0.7 mg/dL (0.2-1.2); Globulin 2.8 g/dL (2.4-3.5); Total Protein 5.2 g/dL (6.0-8.3)
--- NOTE | 2017-07-21 08:58 | Internal Med Progress Note ---
Date of Encounter: 07/21/17 Time of Encounter: 08:40 - Assessment and plan (1) Urinary tract infection Status: Acute Assessment and plan: Plan as below. Qualifiers: Urinary tract infection type: site unspecified Hematuria presence: without hematuria Qualified Code(s): N39.0 - Urinary tract infection, site not specified (2) Urolithiasis Status: Acute Assessment and plan: Patient has been evaluated by urology and underwent cystoscopy and right ureteral stent placement. recommend outpatient urology follow-up. Qualifiers: Urinary calculus location: ureter Qualified Code(s): N20.1 - Calculus of ureter (3) Sepsis Status: Acute Assessment and plan: Sepsis secondary to complicated UTI and ureterolithiasis. Urine culture grows ESBL Escherichia coli, has been on IV meropenem, will change to IV ertapenem to receive a total of 14 days of IV antibiotics. Physical and occupational therapy evaluation noted, recommend placement in extended care facility. Patient is noted to be significantly deconditioned and had a fall this morning as she was made to get out of bed and stand up. CT head showed no acute bleed or fracture. Will place patient on one-on-one sitter for safety as she continues to try to get out of bed with intermittent confusion. Qualifiers: Sepsis type: Escherichia coli Qualified Code(s): A41.51 - Sepsis due to Escherichia coli [E. coli] (4) Acute respiratory failure with hypoxia Status: Acute Assessment and plan: Likely due to sepsis and underlying COPD. Patient has been intubated and currently extubated, saturating well on nasal cannula. Continue supplemental oxygen along with nocturnal BiPAP support as needed. Continue when necessary bronchodilators and inhaled corticosteroids. (5) COPD (chronic obstructive pulmonary disease) Status: Chronic Qualifiers: COPD type: unspecified COPD Qualified Code(s): J44.9 - Chronic obstructive pulmonary disease, unspecified (6) Tobacco dependence Status: Chronic - Subjective Interval history: Reports feeling better; improved shortness of breath, continues to require supplemental O2 via NC; patient reports wearing BiPAP last night but RN states otherwise; - Constitutional Vitals: Temp Pulse Resp BP Pulse Ox 98.8 F 88 12 137/72 97 07/21/17 07:42 07/21/17 08:00 07/21/17 07:38 07/21/17 07:38 07/21/17 07:38 General appearance: Present: cachectic, A&O X 3, answers questions appropriately - Respiratory Respiratory exam: Present: decreased breath sounds, CTAB. Absent: accessory muscle use, rales, rhonchi, wheezes - Cardiovascular Cardiovascular exam: Present: RRR, +S1, +S2. Absent: diastolic murmur, gallop, rubs, systolic murmur - GI/Abdominal GI/Abdominal exam: Present: normal bowel sounds, soft, no peritoneal signs. Absent: distended, tenderness - Extremities Exam Extremities exam: Present: full ROM, warm, radial pulses palpable and symmetrical. Absent: calf tenderness, cyanotic, pedal edema - Neurological Exam Neurological exam: Present: CN II-XII intact, oriented X3, no focal deficits. Absent: pronater drift, facial droop, speech deficit Internal Medicine: Result - Labs CBC & Chem 7: 07/22/17 06:03 07/22/17 06:03 Labs: Short CBC 07/21/17 Range/Units 03:08 WBC 12.8 H (4.3-11.1) K/mcL Hgb 9.1 L (11.5-15.4) g/dL Hct 27.0 L (35.3-44.9) % Plt Count 419 H (140-400) K/mcL Neutrophils # 10.1 H (1.6-8.9) K/mcL BMP 07/21/17 03:08 Sodium 137 Potassium 3.2 L Chloride 99 Carbon Dioxide 28 BUN 16 D Creatinine 0.64 Glucose 85 Calcium 9.0 Liver Function 07/21/17 Range/Units 03:08 Total Bilirubin 0.7 (0.2-1.2) mg/dL Direct Bilirubin 0.4 (0.0-0.5) mg/dL AST 41 H (5-34) Units/L ALT 50 (0-55) Units/L Alkaline Phosphatase 64 (38-126) Units/L Albumin 2.4 L (3.5-5.0) g/dL - ABG Interpretation ABG results: ABG ABG pH 7.39 pH Units (7.32-7.45) 07/17/17 04:43 ABG pCO2 55 mmHg (35-45) H 07/17/17 04:43 ABG pO2 93 mmHg (85-104) 07/17/17 04:43 ABG O2 Saturation 97 % (95-98) 07/17/17 04:43 - VTE Documentation of Mechanical Device: Intermittent pneumatic compression device Consult Discharge Plan - Plan Instructions: Prednisone (By mouth), Ipratropium/Albuterol (By breathing), Ertapenem (Injection), Budesonide/Formoterol (By breathing), Acute Respiratory Distress Syndrome (DC), Urinary Tract Infection in Women (DC), Chronic Obstructive Pulmonary Disease (DC), Sepsis (DC), Chronic Hypertension (DC) Additional Instructions: F/up with PCP in 1-2 weeks F/up with [facility] in 3-4 weeks The doctor offices will contact you with date and time of appointment. Referrals: Joshua Arana MD [Primary Care Provider] - Prescriptions: Ipratropium/Albuterol Neb [Duoneb] 3 ml IH Q6HR PRN 30 Days vial.neb PRN Reason: Shortness Of Breath/Wheezing Budesonide/Formoterol 80/4.5 [Symbicort 80/4.5] 2 puff IH BIDR 30 Days inhaler Nebulizer [Aeroeclipse] 1 each MC Q6H PRN #1 each PRN Reason: Shortness Of Breath/Wheezing Nebulizer Accessories [Sootheneb [id number] Adult Mask] 1 each MC Q6H PRN 30 Days each PRN Reason: Shortness Of Breath/Wheezing Nebulizer Accessories [Sootheneb [id number] Mesh Cap] 1 each MC Q6H PRN 30 Days each PRN Reason: Shortness Of Breath/Wheezing Nebulizer Accessories [Sootheneb Qcp006 Med Cup] 1 each MC Q6H PRN 30 Days each PRN Reason: Shortness Of Breath/Wheezing predniSONE [PredniSONE] 40 mg PO DAILY #6 tablet
[2017-07-21] MEDS: Ertapenem 1,000 MG in 0.9 % Sodium Chloride Mini Bag 100 ML IVPB SCH (09:12)
[2017-07-21] MEDS: ARIPiprazole 5 MG TABLET PO SCH (20:53)
[2017-07-22] MEDS: Ipratropium/Albuterol Neb 3 ML IH SCH ×5 (00:25→15:55)
[2017-07-22] MEDS: *HR* Enoxaparin 40 MG/0.4 ML SYRINGE SQ SCH (05:57)
[2017-07-22 06:24] LABS: BUN/Creatinine Ratio 16 (6-26); Blood Urea Nitrogen 10 mg/dL (7-20); Carbon Dioxide 27 mEq/L (19-29); Chloride 100 mEq/L (98-109); Glucose 93 mg/dL (70-99); Magnesium 1.8 mg/dL (1.6-2.6); Osmolality,Calculated 281 (280-300); Potassium 3.3 mEq/L (3.5-4.5); Sodium 136 mEq/L (136-145); eGFR For African Americans > 60 (> 60); eGFR For Non-African Americans > 60 (> 60)
[2017-07-22 06:34] LABS: Basophils % 0.1 %; Eosinophils # 0.7 K/mcL (0.0-0.6); Eosinophils % 6.7 %; Hematocrit 28.5 % (35.3-44.9); Hemoglobin 9.4 g/dL (11.5-15.4); Immature Granulocytes % 1.8 % (0-4); Lymphocytes # 1.1 K/mcL (0.6-4.6); Mean Corpuscular Hemoglobin 28.9 pg (28.0-33.3); Mean Corpuscular Volume 87.7 fL (83.0-100.0); Mean Platelet Volume 10.5 fL (9.4-12.4); Monocytes # 0.4 K/mcL (0.0-1.3); Monocytes % 3.3 %; Neutrophils # 8.5 K/mcL (1.6-8.9); Platelet Count 433 K/mcL (140-400); Red Blood Count 3.25 M/mcL (3.82-4.97); Red Cell Distribution Width 13.8 % (11.5-14.5); Segmented Neutrophils % 78.1 %
[2017-07-22] MEDS: Budesonide/Formoterol 80/4.5 MDI IH SCH (07:56)
[2017-07-22] MEDS: clonazePAM 0.5 MG TABLET PO SCH ×2 (09:32→16:01)
[2017-07-22] MEDS: Nicotine 7 MG PATCH.TD24 TD SCH (09:33)
[2017-07-22] MEDS: Famotidine 20 MG TABLET PO SCH (09:34)
[2017-07-22] MEDS: FLUoxetine 20 MG CAPSULE PO SCH (09:35)
[2017-07-22] MEDS: predniSONE 20 MG TABLET PO SCH (09:35)
[2017-07-22] MEDS: Sennosides 8.6 MG TABLET PO SCH (09:35)
[2017-07-22] MEDS: Ertapenem 1,000 MG in 0.9 % Sodium Chloride Mini Bag 100 ML IVPB SCH (11:04)
[2017-07-22] MEDS ORDERED: Potassium Chloride Elixir 20 MEQ/15 ML UDC PO ONE (11:12)
--- NOTE | 2017-07-22 11:24 | Internal Med Progress Note ---
Date of Encounter: 07/22/17 Time of Encounter: 11:22 - Assessment and plan (1) COPD (chronic obstructive pulmonary disease) Current Visit: Yes Status: Acute (2) Urinary tract infection Current Visit: Yes Status: Acute Qualifiers: Urinary tract infection type: site unspecified Hematuria presence: without hematuria Qualified Code(s): N39.0 - Urinary tract infection, site not specified (3) Urolithiasis Current Visit: Yes Status: Acute Qualifiers: Urinary calculus location: ureter Qualified Code(s): N20.1 - Calculus of ureter (4) Acute respiratory failure with hypoxia Current Visit: Yes Status: Acute (5) Sepsis Current Visit: Yes Status: Acute Qualifiers: Sepsis type: Escherichia coli Qualified Code(s): A41.51 - Sepsis due to Escherichia coli [E. coli] (6) Tobacco dependence Current Visit: Yes Status: Acute (7) Mitral valve disease Current Visit: Yes Status: Acute - Subjective Interval history: Noted to be weak; able to tell me name and remembers she is in a hospital and the current month but confused about today's date and year; she wants to go home instead of [facility]; no chest pain, dyspnea; - Constitutional Vitals: Temp Pulse Resp BP Pulse Ox 97.6 F 85 16 157/71 95 07/22/17 11:07 07/22/17 11:07 07/22/17 11:07 07/22/17 11:07 07/22/17 11:07 General appearance: Present: cachectic, A&O X 3, answers questions appropriately - Respiratory Respiratory exam: Present: CTAB. Absent: accessory muscle use, rales, rhonchi, wheezes - Cardiovascular Cardiovascular exam: Present: RRR, +S1, +S2. Absent: diastolic murmur, gallop, rubs, systolic murmur - GI/Abdominal GI/Abdominal exam: Present: normal bowel sounds, soft, no peritoneal signs. Absent: distended, tenderness Internal Medicine: Result - Labs CBC & Chem 7: 07/22/17 06:03 07/22/17 06:03 Labs: Short CBC 07/22/17 Range/Units 06:03 WBC 10.9 (4.3-11.1) K/mcL Hgb 9.4 L (11.5-15.4) g/dL Hct 28.5 L (35.3-44.9) % Plt Count 433 H (140-400) K/mcL Neutrophils # 8.5 (1.6-8.9) K/mcL BMP 07/22/17 06:03 Sodium 136 Potassium 3.3 L Chloride 100 Carbon Dioxide 27 BUN 10 Creatinine 0.62 Glucose 93 Calcium 9.0 - ABG Interpretation ABG results: ABG ABG pH 7.39 pH Units (7.32-7.45) 07/17/17 04:43 ABG pCO2 55 mmHg (35-45) H 07/17/17 04:43 ABG pO2 93 mmHg (85-104) 07/17/17 04:43 ABG O2 Saturation 97 % (95-98) 07/17/17 04:43 - Impressions Impressions Head CT 07/21/17 11:47 IMPRESSION: No acute intracranial abnormality. D/ / 07/21/2017 12:41:38 Bryn Rose MD / [facility] Interpreting Provider: Bryn Rose MD - VTE Documentation of Mechanical Device: Intermittent pneumatic compression device Consult Discharge Plan - Plan Referrals: Joshua Arana MD [Primary Care Provider] -
--- NOTE | 2017-07-22 15:15 | Discharge Summary ---
Date of Encounter: 07/22/17 Time of Encounter: 11:22 - Discharge Diagnosis (1) Acute respiratory failure with hypoxia Priority: Primary Status: Acute (2) Urinary tract infection Priority: Primary Status: Acute Qualifiers: Urinary tract infection type: site unspecified Hematuria presence: without hematuria Qualified Code(s): N39.0 - Urinary tract infection, site not specified (3) Sepsis Priority: Primary Status: Acute Qualifiers: Sepsis type: Escherichia coli Qualified Code(s): A41.51 - Sepsis due to Escherichia coli [E. coli] (4) Urolithiasis Priority: Primary Status: Acute Qualifiers: Urinary calculus location: ureter Qualified Code(s): N20.1 - Calculus of ureter (5) COPD (chronic obstructive pulmonary disease) Priority: Secondary Status: Chronic Qualifiers: COPD type: unspecified COPD Qualified Code(s): J44.9 - Chronic obstructive pulmonary disease, unspecified (6) Tobacco dependence Priority: Secondary Status: Chronic (7) Mitral valve disease Priority: Secondary Status: Ruled-out - Discharge Medications Prescriptions: Ipratropium/Albuterol Neb [Duoneb] 3 ml IH Q6HR PRN 30 Days vial.neb PRN Reason: Shortness Of Breath/Wheezing Budesonide/Formoterol 80/4.5 [Symbicort 80/4.5] 2 puff IH BIDR 30 Days inhaler Nebulizer [Aeroeclipse] 1 each MC Q6H PRN #1 each PRN Reason: Shortness Of Breath/Wheezing Nebulizer Accessories [Sootheneb [id number] Adult Mask] 1 each MC Q6H PRN 30 Days each PRN Reason: Shortness Of Breath/Wheezing Nebulizer Accessories [Sootheneb Fhs119 Mesh Cap] 1 each MC Q6H PRN 30 Days each PRN Reason: Shortness Of Breath/Wheezing Nebulizer Accessories [Sootheneb Vhu334 Med Cup] 1 each MC Q6H PRN 30 Days each PRN Reason: Shortness Of Breath/Wheezing predniSONE [PredniSONE] 40 mg PO DAILY #6 tablet Home Medications: HYDROcodone/Acet 5/325 mg [[place] 5-325 mg] 1 tab PO Q6H PRN #14 tab 02/17/17 [Rx ] ARIPiprazole [Abilify] 15 mg PO HS 02/18/17 [History] Metoprolol [Lopressor] 25 mg PO BID 02/18/17 [History] Promethazine [Phenergan] 25 mg PO TID PRN 02/18/17 [History] Ranitidine HCl [Zantac] 150 mg PO BID 02/18/17 [History] amLODIPine [Norvasc] 5 mg PO DAILY 02/18/17 [History] clonazePAM [Klonopin] 0.5 mg PO QID PRN 02/18/17 [History] FLUoxetine HCl [Fluoxetine HCl] 40 mg PO BID 07/12/17 [History] Budesonide/Formoterol 80/4.5 [Symbicort 80/4.5] 2 puff IH BIDR 30 Days inhaler 07/22/17 [Rx] Ipratropium/Albuterol Neb [Duoneb] 3 ml IH Q6HR PRN 30 Days vial.neb 07/22/17 [ Rx] Nebulizer Accessories [Sootheneb [id number] Adult Mask] 1 each MC Q6H PRN 30 Days each 07/22/17 [Rx] Nebulizer Accessories [Sootheneb How208 Med Cup] 1 each MC Q6H PRN 30 Days each 07/22/17 [Rx] Nebulizer Accessories [Sootheneb [id number] Mesh Cap] 1 each MC Q6H PRN 30 Days each 07/22/17 [Rx] Nebulizer [Aeroeclipse] 1 each MC Q6H PRN #1 each 07/22/17 [Rx] predniSONE [PredniSONE] 40 mg PO DAILY #6 tablet 07/22/17 [Rx] Allergies/Adverse Reactions: 3 Allergy/AdvReac Type Severity Reaction Status Date / Time codeine AdvReac See Verified 07/11/17 16:21 Comments naproxen AdvReac See Verified 07/11/17 16:21 Comments Oxycodone AdvReac See Verified 07/11/17 16:21 Comments Procedures/tests Complete & Pending: Procedures Performed prior 72 hours Category Date Time Status CT head/brain wo con [CT] Stat Cat Scan 07/21/17 11:47 Completed Date of admission: 07/11/17 20:03 Primary care physician: Joshua Arana MD Consults: 07/11/17 22:33 Consult to Nutrition [CONS] Routine Comment: Consulting Provider: NUTRITION Reason for Dietary Consult: MST Score 07/14/17 03:34 Consult to Pulmonology [CONS] Routine Consulting Provider: Pulm Crit Care & Sleep Rocio Reason for Consult: ICU management Call Completed: No 07/20/17 17:30 Consult to Physical Therapy [CONS] Routine Comment: Evaluate, develop and implement POC Reason for Consult: sepsis, COPD, generalized weakness OT [Consult to Occupational Therapy] [CONS] Routine Comment: Evaluate, develop and implement POC Reason for Consult: sepsis, COPD, generalized weakness 07/21/17 07:48 Consult to Cloth Mercerizer Operator [CONS] Routine Reason for SW Consult: IV antibiotics, safe discharge 07/21/17 09:31 Consult to Invasive Line Access Team [CONS] Routine Reason for Consult: HOME IV ANTIBIOTICS Line Type: EPIV Discharging clinician: Terri Onofre Anticipated date of discharge: 07/22/17 - Patient Status Disposition: Home Health Service Condition: Fair Functional capacity at discharge: uses cane/walker Overall status at discharge: patient is progressing back to baseline - Discharge Instructions Instructions: Prednisone (By mouth), Ipratropium/Albuterol (By breathing), Ertapenem (Injection), Budesonide/Formoterol (By breathing), Acute Respiratory Distress Syndrome (DC), Urinary Tract Infection in Women (DC), Chronic Obstructive Pulmonary Disease (DC), Sepsis (DC), Chronic Hypertension (DC) Follow Up With: Joshua Arana MD [Primary Care Provider] - Additional Instructions: F/up with PCP in 1-2 weeks F/up with [facility] in 3-4 weeks The doctor offices will contact you with date and time of appointment. - Diet and Activity Activity: as per physical therapy, wear oxygen at all times Diet: low fat, low cholesterol, low salt diet Hospital course: Ms. Avelar is a 62 year old female with history of tobacco abuse and COPD, was admitted with respiratory failure. Patient was initially admitted to ICU and had to be intubated and managed on mechanical ventilation. She was noted to have sepsis related to complicated urinary tract infection due to right ureterolithiasis. Urology was consulted and she underwent right ureteral stent placement. Urine culture grew ESBL Escherichia coli and she received IV meropenem initially, which was subsequently changed to IV ertapenem. Her respiratory status improved and she was successfully extubated, weaned off supplemental oxygen and is currently saturating well on room air. Patient was noted to be intermittently delirious and confused although she is oriented in general and is able to answer questions appropriately today. She also has significant deconditioning and debilitation, physical and occupational therapy evaluation was completed and recommended placement in extended care facility for continued rehabilitation. However, patient and her son declined placement and the son is willing to care for the patient at home, understanding her risks for falls, worsening encephalopathy. Patient also had a fall while in the hospital, CT head showed no evidence of acute bleed or trauma. Patient is being discharged on IV ertapenem and home health services, to complete 14 day course of IV antibiotics for ESBL Escherichia coli UTI and sepsis. Time spent discussing smoking cessation with patient: 3 to 10 minutes - Time Spent with Patient Total time spent providing and/or coordinating discharge services: Greater than 30 minutes (45 min) - Constitutional Vitals: Temp Pulse Resp BP Pulse Ox 97.6 F 85 16 157/71 95 07/22/17 11:07 07/22/17 11:07 07/22/17 11:07 07/22/17 11:07 07/22/17 11:07 General appearance: Present: cachectic, A&O X 2, answers questions appropriately - Respiratory Respiratory exam: Present: CTAB. Absent: accessory muscle use, rales, rhonchi, wheezes - Cardiovascular Cardiovascular exam: Present: RRR, +S1, +S2. Absent: diastolic murmur, gallop, rubs, systolic murmur - VTE Documentation of Mechanical Device: Intermittent pneumatic compression device
--- NOTE | 2017-07-22 15:19 | Physician Discharge Referral ---
Home Health/Hosp Referral Info Transfer to: Home Health Attending Provider: Terri Onofre Provider in Charge Post Discharge: PCP - Diagnosis (1) Acute respiratory failure with hypoxia Priority: Primary Status: Acute (2) Urinary tract infection Priority: Primary Status: Acute (3) Sepsis Priority: Primary Status: Acute (4) Urolithiasis Priority: Primary Status: Acute (5) COPD (chronic obstructive pulmonary disease) Priority: Secondary Status: Chronic (6) Tobacco dependence Priority: Secondary Status: Chronic (7) Mitral valve disease Priority: Secondary Status: Chronic - Respiratory Orders Oxygen / L per min (3L/min via NC) Smoking Cessation: Smoking cessation has been advised. For more information, call the [place] Tobacco Quit Line at 8-485-LMVI-NOW. - Diet/Nutrition Diet/Nutrition Orders: No Added Salt (ASHOK), Cardiac - Activity Activity Orders: Ambulate - Services Needed Following services are medically necessary services: Nursing, Home Health Aide, Physical Therapy, Occupational Therapy - Transfer Medications Prescriptions: Ipratropium/Albuterol Neb [Duoneb] 3 ml IH Q6HR PRN 30 Days vial.neb PRN Reason: Shortness Of Breath/Wheezing Budesonide/Formoterol 80/4.5 [Symbicort 80/4.5] 2 puff IH BIDR 30 Days inhaler Nebulizer [Aeroeclipse] 1 each MC Q6H PRN #1 each PRN Reason: Shortness Of Breath/Wheezing Nebulizer Accessories [Sootheneb [id number] Adult Mask] 1 each MC Q6H PRN 30 Days each PRN Reason: Shortness Of Breath/Wheezing Nebulizer Accessories [Sootheneb [id number] Mesh Cap] 1 each MC Q6H PRN 30 Days each PRN Reason: Shortness Of Breath/Wheezing Nebulizer Accessories [Sootheneb Oql122 Med Cup] 1 each MC Q6H PRN 30 Days each PRN Reason: Shortness Of Breath/Wheezing predniSONE [PredniSONE] 40 mg PO DAILY #6 tablet Home Medications: HYDROcodone/Acet 5/325 mg [[place] 5-325 mg] 1 tab PO Q6H PRN #14 tab 02/17/17 [Rx ] ARIPiprazole [Abilify] 15 mg PO HS 02/18/17 [History] Metoprolol [Lopressor] 25 mg PO BID 02/18/17 [History] Promethazine [Phenergan] 25 mg PO TID PRN 02/18/17 [History] Ranitidine HCl [Zantac] 150 mg PO BID 02/18/17 [History] amLODIPine [Norvasc] 5 mg PO DAILY 02/18/17 [History] clonazePAM [Klonopin] 0.5 mg PO QID PRN 02/18/17 [History] FLUoxetine HCl [Fluoxetine HCl] 40 mg PO BID 07/12/17 [History] Budesonide/Formoterol 80/4.5 [Symbicort 80/4.5] 2 puff IH BIDR 30 Days inhaler 07/22/17 [Rx] Ipratropium/Albuterol Neb [Duoneb] 3 ml IH Q6HR PRN 30 Days vial.neb 07/22/17 [ Rx] Nebulizer Accessories [Sootheneb [id number] Adult Mask] 1 each MC Q6H PRN 30 Days each 07/22/17 [Rx] Nebulizer Accessories [Sootheneb [id number] Med Cup] 1 each MC Q6H PRN 30 Days each 07/22/17 [Rx] Nebulizer Accessories [Sootheneb [id number] Mesh Cap] 1 each MC Q6H PRN 30 Days each 07/22/17 [Rx] Nebulizer [Aeroeclipse] 1 each MC Q6H PRN #1 each 07/22/17 [Rx] predniSONE [PredniSONE] 40 mg PO DAILY #6 tablet 07/22/17 [Rx] Allergies/Adverse Reactions: 3 Allergy/AdvReac Type Severity Reaction Status Date / Time codeine AdvReac See Verified 07/11/17 16:21 Comments naproxen AdvReac See Verified 07/11/17 16:21 Comments Oxycodone AdvReac See Verified 07/11/17 16:21 Comments Certification: Further, I certify that my clinical findings support that this patient is homebound (i.e. absences from home require considerable and taxing effort and are for medical reasons or zoroastrianism services or infrequently or short duration when for other reasons) because: Homebound Reason: Patient requires assistance of a person or device to safely leave home, Leaving home requires considerable and taxing effort due to condition, Severity of cardiac or pulmonary status limits activity tolerance Attestation: My signature below is to certify that this patient is under my care and that I, or nurse practitioner, or a physician's administrative personal assistant working with me, has a face-to -face encounter with this patient.
[2017-07-22 16:53] VITALS: BP 143/89
--- NOTE | 2017-07-28 17:05 | Event Note ---
Date of Encounter: 07/28/17 Time of Encounter: 17:04 Progress note for 07/22/17 has been cancelled by me.
== END 2017-07-22 19:00 | disposition home health service (06) | DRG 710 ==
LOC: EMEROO 16:10 → 3ANU 16:10 → SUATTDRO 20:03 → ICNU 07-12 21:25 → 3BNU 07-22 03:24
PROVIDERS: ADMIT Internal Medicine Hematology & Oncology; ATTEND Internal Medicine

== ENCOUNTER 2017-08-03 19:31 | Inpatient (IN) ==
[2017-08-03] MEDS ORDERED: 0.9 % Sodium Chloride 1,000 ML IVC ONE (20:07)
--- NOTE | 2017-08-03 20:07 | Emergency Department Note ---
Disposition Clinical Impression: Hypomagnesemia Sacral fracture Qualifiers: Encounter type: initial encounter Zone of sacrum fracture: unspecified portion of sacrum Fracture type: closed Qualified Code(s): S32.10XA - Unspecified fracture of sacrum, initial encounter for closed fracture Sepsis Qualifiers: Sepsis type: sepsis due to unspecified organism Qualified Code(s): A41.9 - Sepsis, unspecified organism UTI (urinary tract infection) Qualifiers: Urinary tract infection type: site unspecified Hematuria presence: without hematuria Qualified Code(s): N39.0 - Urinary tract infection, site not specified Disposition: Admitted As Inpatient Condition: Fair General Adult HPI - General Chief complaint: ED Back Pain/Injury Stated complaint: fell down stairs, tailbone injury and confusion Time Seen by Provider: 08/03/17 19:46 Source: patient Mode of arrival: wheelchair Limitations: no limitations Nursing Notes Reviewed: Yes Vital Signs Reviewed: Yes - History of Present Illness HPI Narrative: 62-year-old female recent treatment for UTI, discharged 1 week ago presents after questionable mechanical fall at home where she had gone up 3 flights of stairs and fell down onto her buttocks. Per her son is at bedside she has been increasingly confused and he states that she may have had a syncopal fall, may have hit something else he is not sure but she is only complaining of pain in her buttocks and her right shoulder. Patient denies head injury, though she is a somewhat limited historian she states she has 6 out of 10 in, pain in her back for tailbone, nonradiating, was able to partially ambulate but was limited secondary to pain. Some intermittent urinary retention issues, she was treated with outpatient antibiotics recently for UTI. She denies chest pain shortness of breath prior to the fall Onset (ago): hour(s) Location: buttocks Radiation: back Pain Severity: moderate Pain Scale: 8 Quality: aching Improves with: immobilization Worsens with: nothing - Related Data Home Medications Medication Instructions Recorded Confirmed Metoprolol [Lopressor] 25 mg PO BID 02/18/17 08/03/17 Promethazine [Phenergan] 25 mg PO TID PRN 02/18/17 08/03/17 Ranitidine HCl [Zantac] 150 mg PO BID 02/18/17 08/03/17 amLODIPine [Norvasc] 5 mg PO DAILY 02/18/17 08/03/17 clonazePAM [Klonopin] 0.5 mg PO TID PRN 02/18/17 08/03/17 FLUoxetine HCl [Fluoxetine HCl] 40 mg PO BID 07/12/17 08/03/17 Aripiprazole [Abilify] 15 mg PO HS 08/03/17 08/03/17 Ferrous Sulfate 325 mg PO DAILY 08/03/17 08/03/17 HYDROcodone/Acet 5/325 mg [[place] 1 tab PO BID PRN 08/03/17 08/03/17 5-325 mg] Previous Rx's Medication Instructions Recorded Ipratropium/Albuterol Neb [Duoneb] 3 ml IH Q6HR PRN 30 Days vial.neb 07/22/17 Allergies Allergy/AdvReac Type Severity Reaction Status Date / Time codeine AdvReac See Verified 08/03/17 19:40 Comments naproxen AdvReac See Verified 08/03/17 19:40 Comments Oxycodone AdvReac See Verified 08/03/17 19:40 Comments All systems ED: reviewed and negative except as stated. Review of Systems: As Per HPI Constitutional: Reports: fever, weakness Eyes: Denies: eye pain ENT ED: Denies: ear pain Cardiovascular: Denies: chest pain, palpitations Respiratory: Denies: cough, dyspnea Gastrointestinal: Reports: nausea. Denies: abdominal pain Genitourinary: Denies: urgency, dysuria Musculoskeletal: Reports: as per HPI, back pain. Denies: neck pain, joint swelling Integumentary: Denies: rash Neurological: Reports: as per HPI, weakness, numbness, confusion, abnormal gait. Denies: headache, paresthesias Past Medical History - Past Medical History Attestation: Yes The following information was validated with the patient. Source: patient Medical history: Reports: GERD, hyperlipidemia, hypertension, migraine, seizures Surgical history: Reports: cholecystectomy, orthopedic, other Psychiatric history: Reports: anxiety, depression, panic disorder CHARGE LPN history: Reports: no CHARGE LPN history - Social History Smoking Status: Former smoker Smokeless Tobacco Status: No Alcohol use: Reports: none Drug use: Reports: none Physical Exam - General Limitations: no limitations General appearance: alert, in no apparent distress - Head Head exam: atraumatic, normocephalic - Eye Eye exam: Present: normal appearance - ENT ENT exam: normal exam, mucous membranes dry - Neck Neck exam: Present: normal inspection, full ROM - Chest Chest inspection: Present: normal inspection, symmetric chest wall rise - Respiratory Respiratory exam: Present: normal lung sounds bilaterally. 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 Absent: oriented X3 (to self and place), normal gait (antalgic not tested able to weight bearand walk to restroom ), motor sensory deficit - Expanded Neurological Exam Patient oriented to: Present: person, place. Absent: time Motor strength - LUE: 5/5 Motor strength - RUE: 5/5 Motor strength - LLE: 5/5 Motor strength - RLE: 5/5 - Skin Skin exam: Present: warm, dry Course Course Narrative: 62-year-old female with possible syncopal versus mechanical fall, she has mild to moderate sacral and L5 tenderness, but no other neurologic deficits, normal rectal tone on exam, CT imaging obtained as well as basic lab work and septic workup given that she recently had a UTI she has presented febrile and tachycardic. High suspicion for possible urinary tract infection. We will rule out tailbone coccygeal sacral or lumbar fracture - Reevaluation(s) Reevaluation #1: [place] still with UTI, previous cultures have grown ESBL but the last few months she has not grown anything in her urine, we will start her empirically on Zosyn I counseled the orthopedist and orthospine Dr. Mason, and he recommended admission non-op management Time: 22:23 Reevaluation #2: [place] accepted given Zosyn due to previous sensitivity but recs for ertapenum added at this time consult placed patient HD stable for admission. - Consultations Consultation #1: SPOKE WITH DR MASON, RECOMMENDS ADMISSION NON OP MANAGEMENT Vital Signs Temperature 100.4 F H 08/03/17 19:34 Pulse Rate 124 08/03/17 19:34 Respiratory Rate 20 08/03/17 19:34 Blood Pressure 93/61 08/03/17 19:34 O2 Sat by Pulse Oximetry 97 08/03/17 19:34 Temperature 99.2 F 08/03/17 23:33 Pulse Rate 96 08/03/17 22:43 Respiratory Rate 14 08/03/17 23:33 Blood Pressure 114/70 08/03/17 23:33 O2 Sat by Pulse Oximetry 97 08/03/17 22:43 Oxygen Delivery Oxygen Delivery Room Air Medical Decision Making - MDM Narrative Medical decision making narrative: 62-year-old female with sacral fracture, mechanical versus syncopal fall, no evidence of sepsis, UTI given tachycardia fever and elevated white blood cell count and the presence of urinary tract infection recently treated for the same admission for non-op management, orthospine consultation as well as hospitals consultative started on empiric broad-spectrum antibiotics and given 30 mL per kilogram bolus, no evidence of severe sepsis - Medical Records Medical records reviewed: Yes I reviewed the patient's medical records. - Lab Data Lab results reviewed: Yes I reviewed the patient's lab results. Result diagrams: 08/03/17 19:55 08/03/17 19:55 Lab Results 08/03/17 08/03/17 08/03/17 Range/Units 19:41 19:55 19:55 WBC 12.2 H (4.3-11.1) K/mcL RBC 3.29 L (3.82-4.97) M/mcL Hgb 9.9 L (11.5-15.4) g/dL Hct 29.3 L (35.3-44.9) % MCV 89.1 (83.0-100.0) fL MCH 30.1 (28.0-33.3) pg MCHC 33.8 (31.6-35.5) g/dL RDW 16.1 H (11.5-14.5) % Plt Count 181 (140-400) K/mcL MPV 10.5 (9.4-12.4) fL Immature Gran % 0.5 (0-4) % Seg Neutrophils % 83.6 % Lymphocytes % 8.7 % Monocytes % 6.8 % Eosinophils % 0.2 % Basophils % 0.2 % Neutrophils # 10.2 H (1.6-8.9) K/mcL Lymphocytes # 1.1 (0.6-4.6) K/mcL Monocytes # 0.8 (0.0-1.3) K/mcL Eosinophils # 0.0 (0.0-0.6) K/mcL Basophils # 0.0 (0.0-0.2) K/mcL PT 14.7 H (9.4-12.1) Seconds INR 1.4 APTT 28.7 (26.0-36.0) Seconds Sodium (136-145) mEq/L Potassium (3.5-4.5) mEq/L Chloride (98-109) mEq/L Carbon Dioxide (19-29) mEq/L BUN (7-20) mg/dL Creatinine (0.57-1.11) mg/dL Est GFR ( Amer) (> 60) Est GFR (Non-Af Amer) (> 60) BUN/Creatinine Ratio (6-26) Glucose (70-99) mg/dL POC Glucose 122 H (58-89) Calculated Osmolality (280-300) Lactic Acid (0.5-2.2) mmol/L Calcium (8.6-10.8) mg/dL Phosphorus (2.3-4.7) mg/dL Magnesium (1.6-2.6) mg/dL Total Bilirubin (0.2-1.2) mg/dL Direct Bilirubin (0.0-0.5) mg/dL Indirect Bilirubin (0.0-1.2) mg/dL AST (5-34) Units/L ALT (0-55) Units/L Alkaline Phosphatase (38-126) Units/L Troponin I (0-0.03) ng/mL Serum Total Protein (6.0-8.3) g/dL Albumin (3.5-5.0) g/dL Globulin (2.4-3.5) g/dL Albumin/Globulin Ratio (1.1-2.2) Urine Color (Yellow) Urine Clarity (Clear) Urine pH (5.0-8.0) pH Units Ur Specific [place] (1.010-1.025) Urine Protein (Neg-Trace) mg/dL Urine Glucose (UA) (Normal) mg/dL Urine Ketones (Negative) mg/dL Urine Blood (Negative) Urine Nitrite (Negative) Urine Bilirubin (Negative) Urine Urobilinogen (Normal) mg/dL Ur Leukocyte Esterase (Negative) Urine Microscopic RBC (0-3) per hpf Urine Microscopic WBC (0-3) per hpf Ur Squamous Epith Cells (None-Few) per lpf Urine Bacteria (None-Few) per hpf Hyaline Casts (None-Few) per lpf Ur Culture Indicated? (NO) 08/03/17 08/03/17 08/03/17 Range/Units 19:55 19:55 19:55 WBC (4.3-11.1) K/mcL RBC (3.82-4.97) M/mcL Hgb (11.5-15.4) g/dL Hct (35.3-44.9) % MCV (83.0-100.0) fL MCH (28.0-33.3) pg MCHC (31.6-35.5) g/dL RDW (11.5-14.5) % Plt Count (140-400) K/mcL MPV (9.4-12.4) fL Immature Gran % (0-4) % Seg Neutrophils % % Lymphocytes % % Monocytes % % Eosinophils % % Basophils % % Neutrophils # (1.6-8.9) K/mcL Lymphocytes # (0.6-4.6) K/mcL Monocytes # (0.0-1.3) K/mcL Eosinophils # (0.0-0.6) K/mcL Basophils # (0.0-0.2) K/mcL PT (9.4-12.1) Seconds INR APTT (26.0-36.0) Seconds Sodium 128 L (136-145) mEq/L Potassium 3.5 (3.5-4.5) mEq/L Chloride 96 L (98-109) mEq/L Carbon Dioxide 22 (19-29) mEq/L BUN 13 (7-20) mg/dL Creatinine 0.80 (0.57-1.11) mg/dL Est GFR ( Amer) > 60 (> 60) Est GFR (Non-Af Amer) > 60 (> 60) BUN/Creatinine Ratio 16 (6-26) Glucose 118 H (70-99) mg/dL POC Glucose (58-89) Calculated Osmolality 267 L (280-300) Lactic Acid 1.0 (0.5-2.2) mmol/L Calcium 9.6 (8.6-10.8) mg/dL Phosphorus 2.1 L (2.3-4.7) mg/dL Magnesium 1.3 L (1.6-2.6) mg/dL Total Bilirubin 1.6 H (0.2-1.2) mg/dL Direct Bilirubin 0.6 H (0.0-0.5) mg/dL Indirect Bilirubin 1.0 (0.0-1.2) mg/dL AST 17 (5-34) Units/L ALT 28 (0-55) Units/L Alkaline Phosphatase 97 (38-126) Units/L Troponin I 0.01 (0-0.03) ng/mL Serum Total Protein 6.8 (6.0-8.3) g/dL Albumin 2.8 L (3.5-5.0) g/dL Globulin 4.0 H (2.4-3.5) g/dL Albumin/Globulin Ratio 0.7 L (1.1-2.2) Urine Color (Yellow) Urine Clarity (Clear) Urine pH (5.0-8.0) pH Units Ur Specific [place] (1.010-1.025) Urine Protein (Neg-Trace) mg/dL Urine Glucose (UA) (Normal) mg/dL Urine Ketones (Negative) mg/dL Urine Blood (Negative) Urine Nitrite (Negative) Urine Bilirubin (Negative) Urine Urobilinogen (Normal) mg/dL Ur Leukocyte Esterase (Negative) Urine Microscopic RBC (0-3) per hpf Urine Microscopic WBC (0-3) per hpf Ur Squamous Epith Cells (None-Few) per lpf Urine Bacteria (None-Few) per hpf Hyaline Casts (None-Few) per lpf Ur Culture Indicated? (NO) 08/03/17 Range/Units 20:25 WBC (4.3-11.1) K/mcL RBC (3.82-4.97) M/mcL Hgb (11.5-15.4) g/dL Hct (35.3-44.9) % MCV (83.0-100.0) fL MCH (28.0-33.3) pg MCHC (31.6-35.5) g/dL RDW (11.5-14.5) % Plt Count (140-400) K/mcL MPV (9.4-12.4) fL Immature Gran % (0-4) % Seg Neutrophils % % Lymphocytes % % Monocytes % % Eosinophils % % Basophils % % Neutrophils # (1.6-8.9) K/mcL Lymphocytes # (0.6-4.6) K/mcL Monocytes # (0.0-1.3) K/mcL Eosinophils # (0.0-0.6) K/mcL Basophils # (0.0-0.2) K/mcL PT (9.4-12.1) Seconds INR APTT (26.0-36.0) Seconds Sodium (136-145) mEq/L Potassium (3.5-4.5) mEq/L Chloride (98-109) mEq/L Carbon Dioxide (19-29) mEq/L BUN (7-20) mg/dL Creatinine (0.57-1.11) mg/dL Est GFR ( Amer) (> 60) Est GFR (Non-Af Amer) (> 60) BUN/Creatinine Ratio (6-26) Glucose (70-99) mg/dL POC Glucose (58-89) Calculated Osmolality (280-300) Lactic Acid (0.5-2.2) mmol/L Calcium (8.6-10.8) mg/dL Phosphorus (2.3-4.7) mg/dL Magnesium (1.6-2.6) mg/dL Total Bilirubin (0.2-1.2) mg/dL Direct Bilirubin (0.0-0.5) mg/dL Indirect Bilirubin (0.0-1.2) mg/dL AST (5-34) Units/L ALT (0-55) Units/L Alkaline Phosphatase (38-126) Units/L Troponin I (0-0.03) ng/mL Serum Total Protein (6.0-8.3) g/dL Albumin (3.5-5.0) g/dL Globulin (2.4-3.5) g/dL Albumin/Globulin Ratio (1.1-2.2) Urine Color Yellow (Yellow) Urine Clarity Cloudy A (Clear) Urine pH 7.0 (5.0-8.0) pH Units Ur Specific [place] 1.011 (1.010-1.025) Urine Protein 30 H (Neg-Trace) mg/dL Urine Glucose (UA) Normal (Normal) mg/dL Urine Ketones Negative (Negative) mg/dL Urine Blood Trace H (Negative) Urine Nitrite Positive A (Negative) Urine Bilirubin Negative (Negative) Urine Urobilinogen Normal (Normal) mg/dL Ur Leukocyte Esterase Large H (Negative) Urine Microscopic RBC 0-3 (0-3) per hpf Urine Microscopic WBC 30-50 H (0-3) per hpf Ur Squamous Epith Cells Few (None-Few) per lpf Urine Bacteria Many H (None-Few) per hpf Hyaline Casts None Seen (None-Few) per lpf Ur Culture Indicated? YES A (NO) - Radiology Data Radiology results reviewed: Yes I reviewed the patient's radiology results. Lumbar Spine CT 08/03/17 20:47 IMPRESSION: Unremarkable non-contrast CT of the lumbar spine. D/ / 08/03/2017 21:44:09 Mar[facility] Provider: Mariel Soto MD Pelvis CT 08/03/17 20:47 IMPRESSION: 1. Acute fracture involving the sacrum at the junction of S3 and S4 segments, with slight impaction and mild anterior angulation of the distal sacrococcygeal segments. D/ / Ismael Polanco MD / Ismael Polanco MD Interpreting Provider: Ismael Polanco MD Cervical Spine CT 08/03/17 21:30 IMPRESSION: No acute abnormality of the cervical spine. D/ / Christian Lucero MD / Christian Lucero MD Interpreting Provider: Christian Lucero MD Head CT 08/03/17 21:30 IMPRESSION: No acute intracranial abnormality. D/ / Christian Lucero MD / Christian Lucero MD Interpreting Provider: Christian Lucero MD Thoracic Spine CT 08/03/17 21:30 IMPRESSION: No evidence of an acute thoracic spine injury. Mild aneurysmal dilatation of the ascending aorta measuring up to 3.65 cm. Calcific coronary artery disease. Mild cardiomegaly. Prominent interstitial lung markings particularly at the lung bases. D/ / Christian Lucero MD / Christian Luecro MD Interpreting Provider: Christian Lucero MD - EKG Data EKG #1 EKG attestation: Yes I reviewed and interpreted this EKG. EKG shows normal: sinus rhythm Rate: tachycardia (115 bpm TX 96 QRS [address] segment elevations or depressions sinus tachycardia) Attestation Statement - Attestation Attestation: I examined this patient and my medical decision-making was reviewed with the Resident Physician, Dr. Burch. I agree with the documented findings, disposition and treatment plan as described except to the extent set forth below. She is a 62-year-old frail appearing white female who is brought in by her son cecy after she sustained a mechanical fall. Patient was recently discharged [facility] one week ago for urinary tract infection with associated confusion. Son was concerned because she has been having some urinary symptoms and was concerned about recurrent infection as well as some mild confusion tonight which may have contributed to the fall. Patient's been complaining of some generalized weakness today and states that she lost her footing about 3 steps up some stairs causing her to fall backwards onto her buttock. Patient denies hitting her head or back. There is no loss of consciousness associated with this. She is not having any pelvic or hip pain, no weakness or numbness in the lower extremities. Patient denies any lightheadedness or chest pain shortest of breath headaches or any other symptoms that preceded this fall. Patient is not an accurate historian and seems mildly confused about the details surrounding the fall. She has clear speech, no facial droop is noted no focal neurologic deficits are appreciated. Vital signs on arrival were showing her to be febrile, tachycardic and hypotensive. Based on her recent infection as well as her abnormal vital signs septic protocol was initiated. IV fluids were initiated patient was placed on rn cardiac rehab and continuous pulse ox and IV saline while had been established for lab evaluation. I agree with patient's physical exam findings as documented. Patient's labs show mild elevation in her white count with a left shift, and her urinalysis is positive for UTI. Patient also had a low magnesium and elevated BUNs consistent with some mild dehydration. Patient was given fluid boluses on arrival. Her lactate is within normal limits. Imaging shows normal head CT, cervical spine CT, thoracic spine CT and lumbar spine CT. Patient with the presence of a sacral fracture on pelvic CT. At this time we reevaluated the patient and did perform a rectal exam which showed good rectal tone. No neurologic deficits in the lower extremities. No evidence of bowel or bladder problems with the exception of the recent UTI. Case was discussed with Dr. Mason in the spine surgical subspecialty who agreed to consult on the patient. Case was also discussed with the hospitalist who accepted patient for admission for ongoing management of UTI. Empiric biotics were initiated in the emergency department. Patient's vitals are improving with IV fluids.
[2017-08-03] MEDS ORDERED: 0.9 % Sodium Chloride 500 ML IVC ONE (20:09)
[2017-08-03 20:24] LABS: Basophils % 0.2 %; Eosinophils % 0.2 %; Hematocrit 29.3 % (35.3-44.9); Hemoglobin 9.9 g/dL (11.5-15.4); Immature Granulocytes % 0.5 % (0-4); Lymphocytes # 1.1 K/mcL (0.6-4.6); Lymphocytes % 8.7 %; Mean Corpuscular HGB Conc 33.8 g/dL (31.6-35.5); Mean Corpuscular Hemoglobin 30.1 pg (28.0-33.3); Mean Corpuscular Volume 89.1 fL (83.0-100.0); Mean Platelet Volume 10.5 fL (9.4-12.4); Monocytes # 0.8 K/mcL (0.0-1.3); Monocytes % 6.8 %; Neutrophils # 10.2 K/mcL (1.6-8.9); Platelet Count 181 K/mcL (140-400); Red Blood Count 3.29 M/mcL (3.82-4.97); Red Cell Distribution Width 16.1 % (11.5-14.5); Segmented Neutrophils % 83.6 %
[2017-08-03 20:30] LABS: INR 1.4; Prothrombin Time 14.7 Seconds (9.4-12.1)
[2017-08-03 20:33] LABS: Activated Partial Thrombo Time 28.7 Seconds (26.0-36.0)
[2017-08-03 20:35] LABS: Alanine Aminotransferase 28 Units/L (0-55); Albumin 2.8 g/dL (3.5-5.0); Albumin/Globulin Ratio 0.7 (1.1-2.2); Alkaline Phosphatase 97 Units/L (38-126); Aspartate Amino Transferase 17 Units/L (5-34); BUN/Creatinine Ratio 16 (6-26); Bilirubin,Direct 0.6 mg/dL (0.0-0.5); Bilirubin,Total 1.6 mg/dL (0.2-1.2); Blood Urea Nitrogen 13 mg/dL (7-20); Calcium 9.6 mg/dL (8.6-10.8); Carbon Dioxide 22 mEq/L (19-29); Chloride 96 mEq/L (98-109); Glucose 118 mg/dL (70-99); Magnesium 1.3 mg/dL (1.6-2.6); Osmolality,Calculated 267 (280-300); Phosphorous 2.1 mg/dL (2.3-4.7); Potassium 3.5 mEq/L (3.5-4.5); Sodium 128 mEq/L (136-145); Total Protein 6.8 g/dL (6.0-8.3); eGFR For African Americans > 60 (> 60); eGFR For Non-African Americans > 60 (> 60)
[2017-08-03 20:36] LABS: Bilirubin,Urine Negative (Negative); Blood,Urine Trace (Negative); Clarity,Urine Cloudy (Clear); Color,Urine Yellow (Yellow); Glucose,Urine (UA) Normal (Normal); Ketones,Urine Negative (Negative); Leukocyte Esterase,Urine Large (Negative); Nitrite,Urine Positive (Negative); Protein,Urine 30 mg/dL (Neg-Trace); Specific Gravity,Urine 1.011 (1.010-1.025); Urobilinogen,Urine Normal (Normal)
[2017-08-03 20:38] LABS: Bacteria,Urine Many per hpf (None-Few); Hyaline Casts,Urine None Seen per lpf (None-Few); RBC,Urine 0-3 per hpf (0-3); Squamous Epithelial Cell,Urine Few per lpf (None-Few); WBC,Urine 30-50 per hpf (0-3)
[2017-08-03] MEDS ORDERED: Piperacillin/Tazobactam 3.375 GM in D5% in Water (Mini-Bag+) 100 ML IVPB ONE (21:26)
[2017-08-03] MEDS ORDERED: Magnesium Sulfate 1 GM in D5% in Water 100 ML IVPB ONE (21:55)
[2017-08-04] MEDS: Ertapenem 1,000 MG in 0.9 % Sodium Chloride Mini Bag 100 ML IVPB SCH ×2 (01:24→09:12)
[2017-08-04] MEDS: *HR* HYDROcodone/Acet 5/325 mg TABLET PO PRN ×3 (04:25→20:29)
[2017-08-04] MEDS ORDERED: *HR* Morphine 2 MG/ML SYRINGE IVP PRN (05:07)
[2017-08-04] MEDS ORDERED: Acetaminophen 325 MG TABLET PO PRN (05:07)
[2017-08-04] MEDS ORDERED: Naloxone 0.4 MG/ML INJ IVP PRN (05:07)
[2017-08-04] MEDS ORDERED: clonazePAM 0.5 MG TABLET PO PRN (05:10)
--- NOTE | 2017-08-04 05:38 | Internal Med History&Physical ---
Date of Encounter: 08/04/17 Time of Encounter: 05:32 Assessment and Plan (1) Sacral fracture Current visit: Yes Status: Acute 1. Consult Dr. Fowler. 2. PT/OT consults after Dr. Fowler sees patient. 3. Pain control with oral pain meds; will use IV pain control if patient does tolerate oral pain medications. Qualifiers: Encounter type: initial encounter Zone of sacrum fracture: unspecified portion of sacrum Fracture type: closed Qualified Code(s): S32.10XA - Unspecified fracture of sacrum, initial encounter for closed fracture (2) Urinary tract infection Current visit: Yes Status: Acute 1. U/A suggestive of possible UTI. 2. Cultures have been obtained. 3. Continue Invanz empirically for now, based upon most recent cultures. 4. I do NOT suspect sepsis at this time; will monitor and follow cultures. Qualifiers: Urinary tract infection type: site unspecified Hematuria presence: without hematuria Qualified Code(s): N39.0 - Urinary tract infection, site not specified (3) COPD (chronic obstructive pulmonary disease) Current visit: No Status: Chronic 1. Stable. No acute process. 2. Continue home meds as appropriate. Qualifiers: COPD type: unspecified COPD Qualified Code(s): J44.9 - Chronic obstructive pulmonary disease, unspecified (4) DVT prophylaxis Current visit: No Status: Acute 1. Heparin SQ. Internal Medicine - H&P: HPI Chief complaint: s/p fall; sacral fracture Admitted From: Emergency Dept Plans for Post Hospital Care: Home History of present illness: Ms. Avelar is a 62 year old female who presents to the ER tonight after having fallen and sustaining a sacral fracture. She was recently discharged from the hospital after having been treated for severe sepsis secondary to urinary source. She was in ICU on mechanical ventilation and pressor support for 3 days. She recovered from that event and was eventually discharged several days ago. She lives with her son and has not recovered her strength fully to her baseline. She was climbing the stairs earlier last night and sustained a mechanical fall while climbing stairs. She landed on her bottom and on her back sustained injury to her bottom. She came to ER for evaluation and was admitted to hospitalist service with orthopedic consultation. Of note, she does have a mild leukocytosis and tachycardia and, based upon that, ER [place] blood cultures, urine cultures, and treated her empirically for sepsis. Upon my assessment of the patient, she states she feels well other than pain in her bottom. She denies any fevers, chills, night sweats, cough, congestion, vomiting, diarrhea, or dysuria since her discharge. She states she simply fell down the stairs and sustained a sacral injury. Blood and urine cultures were collected in the ER, and she received a dose of antibiotics. We will continue antibiotics for now until cultures can be resulted. However, clinically, I did not feel patient is septic and suspect her tachycardia to be secondary to pain from her fractured sacrum. She does look a little dehydrated, but she is well- perfused clinically at this time. Past Med Surg Social Fam HX - Past Medical History Attestation: Yes The following information was validated with the patient. Source: patient, obtained from family Medical history: GERD, hyperlipidemia, hypertension, migraine, seizures Psychiatric history: anxiety, depression, panic disorder - Past Surgical History Surgical History: cholecystectomy, orthopedic, other - Social History Smoking Status: Former smoker Smokeless Tobacco Status: No Alcohol use: none Drug use: none Current living situation: Home, With Family Recent Out of Country Travel Within the Last 8 Weeks: No - Family History Mother Hx Family Cardiac Disorders: Yes Internal Medicine - H&P: Meds Metoprolol [Lopressor] 25 mg PO BID 02/18/17 [History] Promethazine [Phenergan] 25 mg PO TID PRN 02/18/17 [History] Ranitidine HCl [Zantac] 150 mg PO BID 02/18/17 [History] amLODIPine [Norvasc] 5 mg PO DAILY 02/18/17 [History] clonazePAM [Klonopin] 0.5 mg PO TID PRN 02/18/17 [History] FLUoxetine HCl [Fluoxetine HCl] 40 mg PO BID 07/12/17 [History] Ipratropium/Albuterol Neb [Duoneb] 3 ml IH Q6HR PRN 30 Days vial.neb 07/22/17 [ Rx] Aripiprazole [Abilify] 15 mg PO HS 08/03/17 [History] Ferrous Sulfate 325 mg PO DAILY 08/03/17 [History] HYDROcodone/Acet 5/325 mg [[place] 5-325 mg] 1 tab PO BID PRN 08/03/17 [History] 3 Allergy/AdvReac Type Severity Reaction Status Date / Time codeine AdvReac See Verified 08/03/17 19:40 Comments naproxen AdvReac See Verified 08/03/17 19:40 Comments Oxycodone AdvReac See Verified 08/03/17 19:40 Comments - Constitutional Constitutional: no chills, no fever(s), no night sweats - EENT Eyes: blurry vision, no change in vision Ears: no ear pain, no tinnitus Nose, mouth and throat: no nasal congestion, no nasal discharge, no sinus pressure, no sore throat - Cardiovascular Cardiovascular ROS IM: no chest pain, no diaphoresis, no dyspnea, no dyspnea on exertion, no orthopnea, no palpitations - Respiratory Respiratory: no cough, no dyspnea, no hemoptysis, no wheezing, no chest congestion, no excessive phlegm production - Gastrointestinal Gastrointestinal: no abdominal pain, no diarrhea, no hematemesis, no hematochezia, no melena, no nausea, no vomiting - Genitourinary Genitourinary: no dysuria, no flank pain, no hematuria, no urinary incontinence - Musculoskeletal Musculoskeletal ROS IM: arthralgias, back pain - Integumentary Integumentary IM: no rash, no jaundice - Neurological Neurological ROS: weakness, no focal weakness, no headache(s), no vertigo - Psychiatric Psychiatric: no anxiety, no depression - Endocrine Endocrine IM: no polydipsia, no polyuria - Allergic/Immunologic Allergic/Immunologic: no wheezing, no GI upset with certain foods - Constitutional Vitals: Temp Pulse Resp BP Pulse Ox 98.0 F 126 16 133/75 96 08/04/17 04:27 08/04/17 04:27 08/04/17 04:27 08/04/17 04:27 08/04/17 04:27 General appearance: Present: cooperative, A&O X 3, pleasant, no acute distress, answers questions appropriately - Head Head exam: Present: normal inspection - Eye Eye exam: Present: EOMI, normal appearance, PERRL. Absent: scleral icterus Pupils: Absent: normal accommodation - ENT ENT exam: Present: mucous membranes dry, normal exam - Neck Neck exam general surgery: Present: full ROM, supple. Absent: tenderness, thyromegaly - Expanded Neck Exam Neck exam: Absent: carotid bruit - Respiratory Respiratory exam: Present: accessory muscle use, CTAB. Absent: rales, rhonchi, wheezes - Cardiovascular Cardiovascular exam: Present: RRR, +S1, +S2, tachycardia (HR 110's). Absent: diastolic murmur, systolic murmur - GI/Abdominal GI/Abdominal exam: Present: normal bowel sounds, soft. Absent: hepatomegaly, splenomegaly, tenderness - Extremities Exam Extremities exam: Present: full ROM, warm. Absent: calf tenderness, joint swelling - Back Exam Back exam: Present: tenderness (along sacrum). Absent: CVA tenderness (L), CVA tenderness (R) - Neurological Exam Neurological exam: Present: alert, CN II-XII intact, oriented X3, no focal deficits - Psychiatric Psychiatric exam: Present: normal affect, normal mood - Skin Skin exam: Present: dry, warm. Absent: rash Internal Med - H&P Results - Labs CBC & Chem 7: 08/03/17 19:55 08/03/17 19:55 - EKG Data -: EKG Interpreted by Myself EKG shows normal: sinus rhythm Rate: tachycardia - EKG Data Prior EKG available for review: no EKG comments: 08/04/17 05:44 Sinus tachycardia with HR ~ 115. No acute St-T changes.
[2017-08-04 05:41] LABS: Basophils % 0.3 %; Eosinophils # 0.1 K/mcL (0.0-0.6); Eosinophils % 0.6 %; Hematocrit 25.5 % (35.3-44.9); Hemoglobin 8.4 g/dL (11.5-15.4); Immature Granulocytes % 1.1 % (0-4); Lymphocytes # 0.5 K/mcL (0.6-4.6); Lymphocytes % 5.2 %; Mean Corpuscular HGB Conc 32.9 g/dL (31.6-35.5); Mean Corpuscular Hemoglobin 29.4 pg (28.0-33.3); Mean Corpuscular Volume 89.2 fL (83.0-100.0); Mean Platelet Volume 10.5 fL (9.4-12.4); Monocytes # 0.6 K/mcL (0.0-1.3); Monocytes % 6.3 %; Neutrophils # 8.5 K/mcL (1.6-8.9); Platelet Count 165 K/mcL (140-400); Red Blood Count 2.86 M/mcL (3.82-4.97); Segmented Neutrophils % 86.5 %
[2017-08-04] MEDS: *HR* Heparin 5,000 UNIT/ML VIAL SQ SCH ×2 (06:04→17:38)
[2017-08-04] MEDS: 0.9 % Sodium Chloride w KCl 20 MEQ/1,000 ML MLS IVC SCH ×2 (06:04→17:38)
[2017-08-04 06:14] LABS: Alanine Aminotransferase 21 Units/L (0-55); Albumin/Globulin Ratio 0.7 (1.1-2.2); Alkaline Phosphatase 80 Units/L (38-126); Aspartate Amino Transferase 14 Units/L (5-34); BUN/Creatinine Ratio 14 (6-26); Blood Urea Nitrogen 9 mg/dL (7-20); Calcium 8.2 mg/dL (8.6-10.8); Carbon Dioxide 21 mEq/L (19-29); Chloride 101 mEq/L (98-109); Globulin 3.2 g/dL (2.4-3.5); Glucose 105 mg/dL (70-99); Magnesium 1.5 mg/dL (1.6-2.6); Osmolality,Calculated 265 (280-300); Potassium 3.4 mEq/L (3.5-4.5); Sodium 128 mEq/L (136-145); eGFR For African Americans > 60 (> 60); eGFR For Non-African Americans > 60 (> 60)
[2017-08-04 06:18] LABS: Albumin 2.2 g/dL (3.5-5.0); Total Protein 5.4 g/dL (6.0-8.3)
[2017-08-04] MEDS: Famotidine 20 MG TABLET PO SCH ×2 (09:13→20:29)
[2017-08-04] MEDS: Ipratropium/Albuterol Neb 3 ML IH SCH ×3 (10:33→22:33)
--- NOTE | 2017-08-04 10:52 | Event Note ---
Date of Encounter: 08/04/17 Time of Encounter: 10:20 Patient reports that her pain is better controlled now that she is lying in bed. Any movement makes the pain worse. Denies any bowel or bladder incontinence. Denies any lower extremity weakness or numbness Will continue current management and supportive care. Pain control. Awaiting evaluation by spine surgery. Patient not having any dysuria or hematuria. No fever or chills. Continue ertapenem for now while we await cultures.
[2017-08-04 12:17] LABS: Enterococcus by PCR Not Detected (Not Detect); Staphylococcus aureus by PCR Not Detected (Not Detect); Streptococcus agalactiae(B)PCR Not Detected (Not Detect); Streptococcus by PCR Not Detected (Not Detect); Streptococcus pneumoniae PCR Not Detected (Not Detect); Streptococcus pyogenes (A) PCR Not Detected (Not Detect); blaKPC Carbapenem-Resist Gene Not Detected (Not Detect)
[2017-08-04 12:18] LABS: Acinetobacter baumannii by PCR Not Detected (Not Detect); Candida albicans by PCR Not Detected (Not Detect); Candida glabrata by PCR Not Detected (Not Detect); Candida krusei by PCR Not Detected (Not Detect); Candida parapsilosis by PCR Not Detected (Not Detect); Candida tropicalis by PCR Not Detected (Not Detect); Escherichia coli by PCR ***DETECTED*** (Not Detect); Klebsiella oxytoca by PCR Not Detected (Not Detect); Klebsiella pneumoniae by PCR Not Detected (Not Detect); Pseudomonas aeruginosa by PCR Not Detected (Not Detect); Serratia marcescens by PCR Not Detected (Not Detect)
--- NOTE | 2017-08-04 12:24 | Electrocardiograph Report ---
[place] [address] Test Date: 2017-08-03 Pat Name: Karen Avelar Department: 102 Room: [facility] Gender: F Tennis Director: [facility] : 1955 Requested By: Godfrey Burch Order Number: [id number] Reading MD: Rick Connolly Measurements Intervals [place] Rate: 115 P: 21 MS: 96 QRS: -34 QRSD: 94 T: 22 QT: 333 QTc: 401 Interpretive Statements SINUS TACHYCARDIA WITH SHORT MS INTERVAL POSSIBLE LEFT ATRIAL ENLARGEMENT [-0.1mV P WAVE IN V1/V2] MARKED LEFT AXIS DEVIATION [QRS AXIS < -30] INCOMPLETE RIGHT BUNDLE BRANCH BLOCK [90+ ms QRS DURATION, TERMINAL R IN V1/V2, 40+ ms S IN I/aVL/V4/V5/V6] Electronically Signed On 08-04-2017 12:22:49 EDT by Rick Connolly
--- NOTE | 2017-08-04 12:31 | Electrocardiograph Report ---
[address] [address] Test Date: 2017-08-04 Pat Name: Karen Avelar Department: 114 Room: [facility] Gender: F Piper Helper: [id number] : 1955 Requested By: Maldonado Luna Order Number: [id number] Reading MD: Rick Connolly Measurements Intervals [place] Rate: 106 P: 39 TN: 148 QRS: -42 QRSD: 90 T: 31 QT: 332 QTc: 394 Interpretive Statements SINUS TACHYCARDIA POSSIBLE LEFT ATRIAL ENLARGEMENT Electronically Signed On 08-04-2017 12:30:20 EDT by Rick Connolly
[2017-08-04] MEDS: ARIPiprazole 5 MG TABLET PO SCH (20:29)
[2017-08-05] MEDS: 0.9 % Sodium Chloride w KCl 20 MEQ/1,000 ML MLS IVC SCH ×2 (03:53→14:53)
[2017-08-05] MEDS: *HR* HYDROcodone/Acet 5/325 mg TABLET PO PRN ×3 (03:58→22:23)
[2017-08-05] MEDS: Ipratropium/Albuterol Neb 3 ML IH SCH ×2 (04:20→10:53)
[2017-08-05] MEDS: *HR* Heparin 5,000 UNIT/ML VIAL SQ SCH ×2 (05:45→17:54)
[2017-08-05] MEDS: Famotidine 20 MG TABLET PO SCH ×2 (07:45→22:24)
[2017-08-05] MEDS: Ertapenem 1,000 MG in 0.9 % Sodium Chloride Mini Bag 100 ML IVPB SCH (07:45)
[2017-08-05 08:50] LABS: Basophils % 0.3 %; Eosinophils # 0.2 K/mcL (0.0-0.6); Eosinophils % 3.4 %; Hematocrit 24.6 % (35.3-44.9); Hemoglobin 7.9 g/dL (11.5-15.4); Immature Granulocytes % 0.7 % (0-4); Immature Platelets 3.9 % (1.1-6.1); Lymphocytes # 1.3 K/mcL (0.6-4.6); Lymphocytes % 21.1 %; Mean Corpuscular HGB Conc 32.1 g/dL (31.6-35.5); Mean Corpuscular Hemoglobin 29.3 pg (28.0-33.3); Mean Corpuscular Volume 91.1 fL (83.0-100.0); Mean Platelet Volume 10.5 fL (9.4-12.4); Monocytes # 0.4 K/mcL (0.0-1.3); Monocytes % 6.8 %; Platelet Count 218 K/mcL (140-400); Red Cell Distribution Width 16.8 % (11.5-14.5); Segmented Neutrophils % 67.7 %
[2017-08-05 09:00] LABS: BUN/Creatinine Ratio 10 (6-26); Blood Urea Nitrogen 6 mg/dL (7-20); Calcium 8.7 mg/dL (8.6-10.8); Carbon Dioxide 21 mEq/L (19-29); Chloride 108 mEq/L (98-109); Glucose 91 mg/dL (70-99); Osmolality,Calculated 279 (280-300); Potassium 4.1 mEq/L (3.5-4.5); eGFR For African Americans > 60 (> 60); eGFR For Non-African Americans > 60 (> 60)
[2017-08-05 09:01] LABS: Sodium 136 mEq/L (136-145)
--- NOTE | 2017-08-05 14:48 | Internal Med Progress Note ---
Date of Encounter: 08/05/17 Time of Encounter: 11:00 - Assessment and plan (1) Bacteremia due to Escherichia coli Current Visit: Yes Status: Acute Assessment and plan: One out of 2 sets of blood cultures positive for Escherichia coli. Repeat cultures have been sent today. Most likely urinary etiology. Patient did have right ureteral stent placed during her last hospitalization. Consulted urology for evaluation and recommendations. Continue ertapenem while awaiting culture results. High risk for complications due to recurrent Escherichia coli bacteremia. Urine cultures are still pending. (2) Sacral fracture Current Visit: Yes Status: Acute Assessment and plan: Continue supportive care. We will consult physical therapy. Spine surgery consulted. Will follow recommendations. Qualifiers: Encounter type: initial encounter Zone of sacrum fracture: unspecified portion of sacrum Fracture type: closed Qualified Code(s): S32.10XA - Unspecified fracture of sacrum, initial encounter for closed fracture (3) COPD (chronic obstructive pulmonary disease) Current Visit: Yes Status: Chronic Assessment and plan: Not in acute exacerbation. Will place on bronchodilators as needed Qualifiers: COPD type: unspecified COPD Qualified Code(s): J44.9 - Chronic obstructive pulmonary disease, unspecified (4) Urinary tract infection Current Visit: Yes Status: Acute Assessment and plan: Possibly from Escherichia coli. Continue to await urinary culture. Continue ertapenem Qualifiers: Urinary tract infection type: site unspecified Hematuria presence: without hematuria Qualified Code(s): N39.0 - Urinary tract infection, site not specified (5) DVT prophylaxis Current Visit: No Status: Acute - Subjective Interval history: Patient is better today. Pain still has pain in the sacral region that is well controlled as long as she does not move. Denies any bowel or bladder incontinence. No focal weakness in lower extremities. No fever or chills reported overnight. No dysuria. - Constitutional Vitals: Temp Pulse Resp BP Pulse Ox 98.3 F 84 16 104/56 97 08/05/17 10:00 08/05/17 10:00 08/05/17 10:55 08/05/17 10:00 08/05/17 10:55 General appearance: Present: cooperative, A&O X 3, pleasant, no acute distress, answers questions appropriately - Respiratory Respiratory exam: Present: CTAB. Absent: accessory muscle use, rales, rhonchi, wheezes - Cardiovascular Cardiovascular exam: Present: RRR, +S1, +S2. Absent: diastolic murmur, gallop, rubs, systolic murmur - GI/Abdominal GI/Abdominal exam: Present: normal bowel sounds, soft, no peritoneal signs. Absent: distended, tenderness - Extremities Exam Extremities exam: Present: warm, radial pulses palpable and symmetrical. Absent : calf tenderness, cyanotic, pedal edema - Neurological Exam Neurological exam: Present: alert, CN II-XII intact, oriented X3, no focal deficits. Absent: facial droop, speech deficit - Skin Skin exam: Present: dry, intact Internal Medicine: Result - Labs CBC & Chem 7: 08/05/17 08:39 08/05/17 08:39 Labs: Short CBC 08/05/17 Range/Units 08:39 WBC 5.9 (4.3-11.1) K/mcL Hgb 7.9 L (11.5-15.4) g/dL Hct 24.6 L (35.3-44.9) % Plt Count 218 (140-400) K/mcL Neutrophils # 4.0 (1.6-8.9) K/mcL BMP 08/05/17 08:39 Sodium 136 D Potassium 4.1 Chloride 108 Carbon Dioxide 21 BUN 6 L Creatinine 0.61 Glucose 91 Calcium 8.7 - ABG Interpretation ABG results: PT/INR, D-dimer PT 14.7 Seconds (9.4-12.1) H 08/03/17 19:55 - VTE Documentation of Mechanical Device: Intermittent pneumatic compression device Consult Discharge Plan - Plan Referrals: Joshua Arana MD [Primary Care Provider] -
[2017-08-05] MEDS ORDERED: Ipratropium/Albuterol Neb 3 ML IH PRN (14:52)
--- NOTE | 2017-08-05 18:55 | Urology - Consult Note ---
Date of Encounter: 08/05/17 Time of Encounter: 18:52 - Assessment and Plan (1) Urinary tract infection Current Visit: Yes Status: Acute Assessment and plan: Patient stent is in good position. Recommend continued treatment of ESBL bacteria. Patient can follow-up with Dr. Rivero in 1-2 weeks after discharge for discussion of definitive management of right ureteral stone. No urgent need at this time to exchange right ureteral stent Qualifiers: Urinary tract infection type: site unspecified Hematuria presence: without hematuria Qualified Code(s): N39.0 - Urinary tract infection, site not specified Urology CN:HPI Consult date: 08/05/17 Reason for consult Urology: Other (uti) Requesting physician: Susan Nolen History of present illness: Karen is a 62-year-old female with a history of recent admission secondary to a fall. She had urine and blood cultures obtained. Blood cultures have again shown infection. Patient was recently admitted secondary to UTI where she underwent stenting of a right ureteral stone on July [address] Rivero. Patient had been doing well. Past Med Surg Social Fam HX - Past Medical History Medical history: GERD, hyperlipidemia, hypertension, migraine, seizures Psychiatric history: anxiety, depression, panic disorder - Past Surgical History Surgical History: cholecystectomy, orthopedic, other - Social History Smoking Status: Former smoker Smokeless Tobacco Status: No Alcohol use: none Drug use: none - Family History Mother Hx Family Cardiac Disorders: Yes Medications and Allergies Metoprolol [Lopressor] 25 mg PO BID 02/18/17 [History] Promethazine [Phenergan] 25 mg PO TID PRN 02/18/17 [History] Ranitidine HCl [Zantac] 150 mg PO BID 02/18/17 [History] amLODIPine [Norvasc] 5 mg PO DAILY 02/18/17 [History] clonazePAM [Klonopin] 0.5 mg PO TID PRN 02/18/17 [History] FLUoxetine HCl [Fluoxetine HCl] 40 mg PO BID 07/12/17 [History] Ipratropium/Albuterol Neb [Duoneb] 3 ml IH Q6HR PRN 30 Days vial.neb 07/22/17 [ Rx] Aripiprazole [Abilify] 15 mg PO HS 08/03/17 [History] Ferrous Sulfate 325 mg PO DAILY 08/03/17 [History] HYDROcodone/Acet 5/325 mg [[place] 5-325 mg] 1 tab PO BID PRN 08/03/17 [History] 3 Allergy/AdvReac Type Severity Reaction Status Date / Time codeine AdvReac See Verified 08/03/17 19:40 Comments naproxen AdvReac See Verified 08/03/17 19:40 Comments Oxycodone AdvReac See Verified 08/03/17 19:40 Comments Review of Systems - Constitutional no chills - EENT Nose, mouth and throat: no dizziness - Cardiovascular no chest pain - Respiratory no cough - Gastrointestinal no abdominal pain - Musculoskeletal back pain Exam Initial Vital Signs Temp Pulse Resp BP Pulse Ox 100.4 F H 124 20 93/61 97 08/03/17 19:34 08/03/17 19:34 08/03/17 19:34 08/03/17 19:34 08/03/17 19:34 - General physical appearance Present: well developed - Eyes Present: PERRL - ENT Present: normal nares - Neck Present: no masses - Respiratory Present: normal respiratory effort - Cardiovascular Cardiovascular exam IM: RRR Urology Results - Labs 08/05/17 08:39 08/05/17 08:39 Abnormal lab results RBC 2.70 M/mcL (3.82-4.97) L 08/05/17 08:39 Hgb 7.9 g/dL (11.5-15.4) L 08/05/17 08:39 Hct 24.6 % (35.3-44.9) L 08/05/17 08:39 RDW 16.8 % (11.5-14.5) H 08/05/17 08:39 PT 14.7 Seconds (9.4-12.1) H 08/03/17 19:55 BUN 6 mg/dL (7-20) L 08/05/17 08:39 POC Glucose 122 (58-89) H 08/03/17 19:41 Calculated Osmolality 279 (280-300) L 08/05/17 08:39 Phosphorus 2.1 mg/dL (2.3-4.7) L 08/03/17 19:55 Magnesium 1.5 mg/dL (1.6-2.6) L 08/04/17 05:32 Direct Bilirubin 0.6 mg/dL (0.0-0.5) H 08/03/17 19:55 Serum Total Protein 5.4 g/dL (6.0-8.3) L D 08/04/17 05:32 Albumin 2.2 g/dL (3.5-5.0) L D 08/04/17 05:32 Albumin/Globulin Ratio 0.7 (1.1-2.2) L 08/04/17 05:32 Urine Clarity Cloudy (Clear) A 08/03/17 20:25 Urine Protein 30 mg/dL (Neg-Trace) H 08/03/17 20:25 Urine Blood Trace (Negative) H 08/03/17 20:25 Urine Nitrite Positive (Negative) A 08/03/17 20:25 Ur Leukocyte Esterase Large (Negative) H 08/03/17 20:25 Urine Microscopic WBC 30-50 per hpf (0-3) H 08/03/17 20:25 Urine Bacteria Many per hpf (None-Few) H 08/03/17 20:25 Ur Culture Indicated? YES (NO) A 08/03/17 20:25 Enterobacteriac sp PCR DETECTED (Not Detect) A 08/03/17 21:36 E. coli (PCR) DETECTED (Not Detect) A 08/03/17 21:36 All other labs normal. Consult Discharge Plan - Plan Referrals: Joshua Arana MD [Primary Care Provider] -
[2017-08-05] MEDS: ARIPiprazole 5 MG TABLET PO SCH (22:24)
[2017-08-06] MEDS: *HR* Heparin 5,000 UNIT/ML VIAL SQ SCH ×2 (05:34→17:06)
[2017-08-06] MEDS: *HR* HYDROcodone/Acet 5/325 mg TABLET PO PRN ×2 (06:48→13:36)
[2017-08-06] MEDS: Ertapenem 1,000 MG in 0.9 % Sodium Chloride Mini Bag 100 ML IVPB SCH (09:22)
[2017-08-06] MEDS: Famotidine 20 MG TABLET PO SCH ×2 (09:22→21:19)
--- NOTE | 2017-08-06 14:14 | Internal Med Progress Note ---
Date of Encounter: 08/06/17 Time of Encounter: 10:15 - Assessment and plan (1) Bacteremia due to Escherichia coli Current Visit: Yes Status: Acute Assessment and plan: Patient with ESBL Escherichia coli bacteremia. Recurrent. Sensitive to ertapenem. Continue ertapenem. Most likely related to ureteral stone. Status post prior stent placement. Discussed with urology and appreciate consult. No urgent indication for stent removal at this time. Urology will make arrangements for stone retrieval as outpatient. Continue IV ertapenem. We will plan for 3 weeks of antibiotics. We will also arrange for follow-up with infectious disease as outpatient for further management. (2) Sacral fracture Current Visit: Yes Status: Acute Assessment and plan: Continue physical therapy. Will follow recommendations. Pain control. Qualifiers: Encounter type: initial encounter Zone of sacrum fracture: unspecified portion of sacrum Fracture type: closed Qualified Code(s): S32.10XA - Unspecified fracture of sacrum, initial encounter for closed fracture (3) COPD (chronic obstructive pulmonary disease) Current Visit: Yes Status: Chronic Assessment and plan: Not in acute exacerbation. Continue bronchodilators as needed. Qualifiers: COPD type: unspecified COPD Qualified Code(s): J44.9 - Chronic obstructive pulmonary disease, unspecified (4) Urinary tract infection Current Visit: Yes Status: Acute Assessment and plan: With ESBL Escherichia coli. Management as above Qualifiers: Urinary tract infection type: site unspecified Hematuria presence: without hematuria Qualified Code(s): N39.0 - Urinary tract infection, site not specified (5) DVT prophylaxis Current Visit: Yes Status: Acute Assessment and plan: Continue subcutaneous heparin (6) Anemia Current Visit: Yes Status: Chronic Assessment and plan: Patient with chronic anemia. Present on admission. This has been worked up during her hospital stay last month. She did have iron and folic acid deficiency. We will continue replacement. Hemoglobin 7.9 today. Presented with hemoglobin of 9.9. Could be related to blood loss from fracture. We will continue to monitor blood counts closely. Baseline hemoglobin appears to be between 8 and 10. Qualifiers: Anemia type: iron deficiency Iron deficiency anemia type: other iron deficiency Qualified Code(s): D50.8 - Other iron deficiency anemias (7) Protein-calorie malnutrition, severe Current Visit: Yes Status: Acute Assessment and plan: Continue dietary supplementation per nutrition recommendations. Albumin 2.2 yesterday. - Subjective Interval history: Patient is awake and alert. Sitting up in bed. Getting ready to work with physical therapy. Pain is well controlled but worsens with activity. Denies any fever or chills. No dysuria at this time. - Constitutional Vitals: Temp Pulse Resp BP Pulse Ox 98.5 F 94 16 138/77 95 08/06/17 10:07 08/06/17 10:07 08/06/17 10:07 08/06/17 10:07 08/06/17 10:07 General appearance: Present: cooperative, A&O X 3, pleasant, no acute distress, answers questions appropriately - Neck Neck exam general surgery: Present: supple, trachea midline. Absent: lymphadenopathy - Respiratory Respiratory exam: Present: CTAB. Absent: accessory muscle use, rales, rhonchi, wheezes - Cardiovascular Cardiovascular exam: Present: RRR, +S1, +S2. Absent: diastolic murmur, gallop, rubs, systolic murmur - GI/Abdominal GI/Abdominal exam: Present: normal bowel sounds, soft, no peritoneal signs. Absent: distended, tenderness - Extremities Exam Extremities exam: Present: warm, radial pulses palpable and symmetrical. Absent : calf tenderness, cyanotic, pedal edema - Neurological Exam Neurological exam: Present: alert, oriented X3, no focal deficits. Absent: facial droop, speech deficit - Skin Skin exam: Present: dry, intact Internal Medicine: Result - Labs CBC & Chem 7: 08/05/17 08:39 08/05/17 08:39 - ABG Interpretation ABG results: PT/INR, D-dimer PT 14.7 Seconds (9.4-12.1) H 08/03/17 19:55 - VTE Documentation of Mechanical Device: Intermittent pneumatic compression device Consult Discharge Plan - Plan Referrals: Joshua Arana MD [Primary Care Provider] - Prescriptions: Ertapenem [INVanz] 1,000 mg IVPB DAILY #21 vial
[2017-08-06] MEDS: Folic Acid 1 MG TABLET PO SCH (14:36)
[2017-08-06] MEDS ORDERED: Ondansetron 4 MG/2 ML VIAL IVP PRN (17:10)
[2017-08-06] MEDS: ARIPiprazole 5 MG TABLET PO SCH (21:19)
[2017-08-07] MEDS: *HR* HYDROcodone/Acet 5/325 mg TABLET PO PRN (03:58)
[2017-08-07 04:59] LABS: Basophils % 0.7 %; Eosinophils # 0.3 K/mcL (0.0-0.6); Eosinophils % 7.1 %; Hemoglobin 8.6 g/dL (11.5-15.4); Immature Granulocytes % 0.9 % (0-4); Lymphocytes # 1.3 K/mcL (0.6-4.6); Lymphocytes % 30.6 %; Mean Corpuscular HGB Conc 33.1 g/dL (31.6-35.5); Mean Corpuscular Hemoglobin 29.9 pg (28.0-33.3); Mean Corpuscular Volume 90.3 fL (83.0-100.0); Mean Platelet Volume 9.9 fL (9.4-12.4); Monocytes # 0.4 K/mcL (0.0-1.3); Monocytes % 10.4 %; Neutrophils # 2.1 K/mcL (1.6-8.9); Platelet Count 262 K/mcL (140-400); Red Blood Count 2.88 M/mcL (3.82-4.97); Red Cell Distribution Width 16.4 % (11.5-14.5); Segmented Neutrophils % 50.3 %
[2017-08-07] MEDS: *HR* Heparin 5,000 UNIT/ML VIAL SQ SCH (05:58)
[2017-08-07] MEDS: Famotidine 20 MG TABLET PO SCH (09:28)
[2017-08-07] MEDS: Folic Acid 1 MG TABLET PO SCH (09:28)
[2017-08-07] MEDS: Ertapenem 1,000 MG in 0.9 % Sodium Chloride Mini Bag 100 ML IVPB SCH (09:28)
--- NOTE | 2017-08-07 11:41 | Discharge Summary ---
Date of Encounter: 08/07/17 Time of Encounter: 11:34 - Discharge Diagnosis (1) Bacteremia due to Escherichia coli Priority: Primary Status: Acute (2) Sacral fracture Priority: Secondary Status: Acute Qualifiers: Encounter type: initial encounter Zone of sacrum fracture: unspecified portion of sacrum Fracture type: closed Qualified Code(s): S32.10XA - Unspecified fracture of sacrum, initial encounter for closed fracture (3) COPD (chronic obstructive pulmonary disease) Priority: Secondary Status: Chronic Qualifiers: COPD type: unspecified COPD Qualified Code(s): J44.9 - Chronic obstructive pulmonary disease, unspecified (4) Urinary tract infection Priority: Secondary Status: Acute Qualifiers: Urinary tract infection type: site unspecified Hematuria presence: without hematuria Qualified Code(s): N39.0 - Urinary tract infection, site not specified (5) DVT prophylaxis Priority: Secondary Status: Acute (6) Anemia Priority: Secondary Status: Chronic Qualifiers: Anemia type: iron deficiency Iron deficiency anemia type: other iron deficiency Qualified Code(s): D50.8 - Other iron deficiency anemias (7) Protein-calorie malnutrition, severe Priority: Secondary Status: Acute - Discharge Medications Prescriptions: HYDROcodone/Acet 5/325 mg [[place] 5-325 mg] 1 tab PO Q6HR PRN #20 tablet PRN Reason: Moderate Pain Alendronate Sodium 70 mg PO QWEEK #10 tab Cholecalciferol (Vitamin D3) [Vitamin D] 2,000 unit PO DAILY #30 capsule Ertapenem [INVanz] 1,000 mg IVPB DAILY #21 vial Folic Acid 1 mg PO DAILY #30 tablet Home Medications: Metoprolol [Lopressor] 25 mg PO BID 02/18/17 [History] Promethazine [Phenergan] 25 mg PO TID PRN 02/18/17 [History] Ranitidine HCl [Zantac] 150 mg PO BID 02/18/17 [History] amLODIPine [Norvasc] 5 mg PO DAILY 02/18/17 [History] clonazePAM [Klonopin] 0.5 mg PO TID PRN 02/18/17 [History] FLUoxetine HCl [Fluoxetine HCl] 40 mg PO BID 07/12/17 [History] Ipratropium/Albuterol Neb [Duoneb] 3 ml IH Q6HR PRN 30 Days vial.neb 07/22/17 [ Rx] Aripiprazole [Abilify] 15 mg PO HS 08/03/17 [History] Ferrous Sulfate 325 mg PO DAILY 08/03/17 [History] Ertapenem [INVanz] 1,000 mg IVPB DAILY #21 vial 08/06/17 [Rx] Alendronate Sodium 70 mg PO QWEEK #10 tab 08/07/17 [Rx] Cholecalciferol (Vitamin D3) [Vitamin D] 2,000 unit PO DAILY #30 capsule [Rx] Folic Acid 1 mg PO DAILY #30 tablet 08/07/17 [Rx] HYDROcodone/Acet 5/325 mg [[place] 5-325 mg] 1 tab PO Q6HR PRN #20 tablet [Rx] Allergies/Adverse Reactions: 3 Allergy/AdvReac Type Severity Reaction Status Date / Time codeine AdvReac See Verified 08/03/17 19:40 Comments naproxen AdvReac See Verified 08/03/17 19:40 Comments Oxycodone AdvReac See Verified 08/03/17 19:40 Comments Date of admission: 08/05/17 17:38 Primary care physician: Joshua Arana MD Consults: 08/06/17 13:09 Consult to Invasive Line Access Team [CONS] Routine Reason for Consult: IV antibiotics Line Type: EPIV Discharging clinician: Susan Nolen Anticipated date of discharge: 08/07/17 - Patient Status Disposition: Home Health Service Condition: Good Functional capacity at discharge: uses cane/walker Overall status at discharge: patient is progressing back to baseline - Discharge Instructions Instructions: Urinary Tract Infection in Women (DC), Sepsis (DC), Anemia (GEN) Follow Up With: Joshua Arana MD [Primary Care Provider] - (in 1-2 weeks; web requested ) Christian Fowler Jr, MD [Partnered Physician] - (in 1-2 weeks) Carmella Man, KOKI [Advanced Practice Nurse] - (in 1-2 weeks for recurrent ESBL; web request 08/07/17) Fausto Rivero MD [Partnered Physician] - (1-2 weeks; web requested ) - Diet and Activity Activity: as per physical therapy Diet: low fat, low cholesterol, low salt diet Hospital course: Ms. Avelar is a 62 year old female with history of hypertension and hyperlipidemia, COPD who was hospitalized here after a mechanical fall resulting in sacral fracture at junction of S3 and S4 segments. She was managed conservatively. Spine surgery was called and they recommended weightbearing as tolerated and pain management along with physical therapy. Patient's urine was concerning for acute urinary tract infection. She had recently completed treatment course for ESBL Escherichia coli with ertapenem. She also had recently a right ureteral stent placed for ureteral stone. Patient 's urine culture again turned positive for Escherichia coli and one set of blood culture was also positive for the same organism. This was again ESBL producing. She was again placed back on ertapenem to which it remains sensitive. This time she will be treated for at least 3 weeks and will follow up with urology for stone removal as outpatient. This is most likely source of her recurrent infection. She is now doing much better and is clinically stable for discharge. She has been recommended placement to skilled rehabilitation but she wishes to go home with home health. Home IV ertapenem has also been arranged for her. She will be discharged home today. We will also refer her to infectious disease for recurrent ESBL Escherichia coli infection. - Time Spent with Patient Total time spent providing and/or coordinating discharge services: Greater than 30 minutes (40 min) - Constitutional Vitals: Temp Pulse Resp BP Pulse Ox 98.4 F 89 16 130/84 97 08/07/17 07:43 08/07/17 07:43 08/07/17 07:43 08/07/17 07:43 08/07/17 07:43 General appearance: Present: cooperative, A&O X 3, pleasant, no acute distress, answers questions appropriately - Respiratory Respiratory exam: Present: CTAB. Absent: accessory muscle use, rales, rhonchi, wheezes - Cardiovascular Cardiovascular exam: Present: RRR, +S1, +S2. Absent: diastolic murmur, gallop, rubs, systolic murmur - GI/Abdominal GI/Abdominal exam: Present: normal bowel sounds, soft, no peritoneal signs. Absent: distended, tenderness - VTE Documentation of Mechanical Device: Intermittent pneumatic compression device
--- NOTE | 2017-08-07 11:48 | Physician Discharge Referral ---
Home Health/Hosp Referral Info Transfer to: Home Health Provider in Charge Post Discharge: PCP - Diagnosis (1) Bacteremia due to Escherichia coli Priority: Primary Status: Acute (2) Sacral fracture Priority: Secondary Status: Acute (3) COPD (chronic obstructive pulmonary disease) Priority: Secondary Status: Chronic (4) Urinary tract infection Priority: Secondary Status: Acute (5) DVT prophylaxis Priority: Secondary Status: Acute (6) Anemia Priority: Secondary Status: Chronic (7) Protein-calorie malnutrition, severe Priority: Secondary Status: Acute - Respiratory Orders Smoking Cessation: Smoking cessation has been advised. For more information, call the [place] Tobacco Quit Line at 5-244-IOBT-NOW. - Diet/Nutrition Diet/Nutrition Orders: Cardiac - Services Needed Following services are medically necessary services: Nursing, Physical Therapy, Occupational Therapy, Home Infusion - Transfer Medications Prescriptions: HYDROcodone/Acet 5/325 mg [[place] 5-325 mg] 1 tab PO Q6HR PRN #20 tablet PRN Reason: Moderate Pain Alendronate Sodium 70 mg PO QWEEK #10 tab Cholecalciferol (Vitamin D3) [Vitamin D] 2,000 unit PO DAILY #30 capsule Ertapenem [INVanz] 1,000 mg IVPB DAILY #21 vial Folic Acid 1 mg PO DAILY #30 tablet Home Medications: Metoprolol [Lopressor] 25 mg PO BID 02/18/17 [History] Promethazine [Phenergan] 25 mg PO TID PRN 02/18/17 [History] Ranitidine HCl [Zantac] 150 mg PO BID 02/18/17 [History] amLODIPine [Norvasc] 5 mg PO DAILY 02/18/17 [History] clonazePAM [Klonopin] 0.5 mg PO TID PRN 02/18/17 [History] FLUoxetine HCl [Fluoxetine HCl] 40 mg PO BID 07/12/17 [History] Ipratropium/Albuterol Neb [Duoneb] 3 ml IH Q6HR PRN 30 Days vial.neb 07/22/17 [ Rx] Aripiprazole [Abilify] 15 mg PO HS 08/03/17 [History] Ferrous Sulfate 325 mg PO DAILY 08/03/17 [History] Ertapenem [INVanz] 1,000 mg IVPB DAILY #21 vial 08/06/17 [Rx] Alendronate Sodium 70 mg PO QWEEK #10 tab 08/07/17 [Rx] Cholecalciferol (Vitamin D3) [Vitamin D] 2,000 unit PO DAILY #30 capsule [Rx] Folic Acid 1 mg PO DAILY #30 tablet 08/07/17 [Rx] HYDROcodone/Acet 5/325 mg [[place] 5-325 mg] 1 tab PO Q6HR PRN #20 tablet [Rx] Allergies/Adverse Reactions: 3 Allergy/AdvReac Type Severity Reaction Status Date / Time codeine AdvReac See Verified 08/03/17 19:40 Comments naproxen AdvReac See Verified 08/03/17 19:40 Comments Oxycodone AdvReac See Verified 08/03/17 19:40 Comments Certification: Further, I certify that my clinical findings support that this patient is homebound (i.e. absences from home require considerable and taxing effort and are for medical reasons or jainism services or infrequently or short duration when for other reasons) because: Homebound Reason: Patient requires assistance of a person or device to safely leave home Attestation: My signature below is to certify that this patient is under my care and that I, or nurse practitioner, or a physician's assistant professor of life sciences working with me, has a face-to -face encounter with this patient.
[2017-08-07 15:25] VITALS: BP 132/90
== END 2017-08-07 16:43 | disposition home health service (06) | DRG 463 ==
LOC: 3NENU 19:31 → EMEROO 19:31 → SUATTDRO 22:59 → 3NENU 23:35
PROVIDERS: ADMIT Family Medicine; ATTEND Internal Medicine

== ENCOUNTER 2020-02-24 02:44 | Inpatient (IN) ==
[2020-02-24] MEDS ORDERED: 0.9 % Sodium Chloride 1,000 ML IVC ONE (02:55)
[2020-02-24] MEDS ORDERED: Morphine Sulfate 2 MG/ML SYRINGE IVP ONE ×2 (02:59→04:30)
[2020-02-24] MEDS ORDERED: Ondansetron 4 MG/2 ML VIAL IVP ONE (02:59)
[2020-02-24 03:17] LABS: Basophils % 0.1 %; Eosinophils % 0.1 %; Hematocrit 39.2 % (35.3-44.9); Hemoglobin 12.8 g/dL (11.5-15.4); Immature Granulocytes % 0.5 % (0-4); Lymphocytes # 1.4 K/mcL (0.6-4.6); Mean Corpuscular HGB Conc 32.7 g/dL (31.6-35.5); Mean Corpuscular Hemoglobin 30.8 pg (28.0-33.3); Mean Corpuscular Volume 94.2 fL (83.0-100.0); Mean Platelet Volume 10.6 fL (9.4-12.4); Monocytes # 0.5 K/mcL (0.0-1.3); Monocytes % 4.5 %; Neutrophils # 8.2 K/mcL (1.6-8.9); Platelet Count 157 K/mcL (140-400); Red Blood Count 4.16 M/mcL (3.82-4.97); Red Cell Distribution Width 14.3 % (11.5-14.5); Segmented Neutrophils % 80.8 %; White Blood Count 10.1 K/mcL (4.3-11.1)
[2020-02-24 03:36] LABS: BUN/Creatinine Ratio 21 (6-26); Blood Urea Nitrogen 19 mg/dL (8-23); Calcium 10.1 mg/dL (8.6-10.3); Carbon Dioxide 25 mEq/L (23-29); Chloride 99 mEq/L (98-107); Glucose 112 mg/dL (70-105); Osmolality,Calculated 273 (280-300); Potassium 4.2 mEq/L (3.5-5.1); Sodium 130 mEq/L (136-145); eGFR For African Americans > 60 (> 60); eGFR For Non-African Americans > 60 (> 60)
[2020-02-24 04:12] LABS: Bilirubin,Urine Negative (Negative); Blood,Urine Moderate (Negative); Clarity,Urine Cloudy (Clear); Color,Urine Yellow (Yellow); Glucose,Urine (UA) Normal (Normal); Ketones,Urine Negative (Negative); Leukocyte Esterase,Urine Large (Negative); Nitrite,Urine Positive (Negative); Protein,Urine 100 mg/dL (Neg-Trace); Specific Gravity,Urine 1.017 (1.010-1.025); Urobilinogen,Urine Normal (Normal)
[2020-02-24 04:13] LABS: Bacteria,Urine Many per hpf (None-Few); Hyaline Casts,Urine None Seen per lpf (None-Few); Squamous Epithelial Cell,Urine Many per lpf (None-Few); WBC,Urine TNTC per hpf (0-3)
[2020-02-24] MEDS ORDERED: cefTRIAXone 1,000 MG in Water for inj. (sterile) 10 ML IVP ONE (04:25)
[2020-02-24] MEDS ORDERED: 0.9 % Sodium Chloride 500 ML IVC ONE (04:30)
[2020-02-24] MEDS ORDERED: Acetaminophen 325 MG TABLET PO ONE (05:24)
[2020-02-24] MEDS ORDERED: Ondansetron 4 MG/2 ML VIAL IVP PRN (07:35)
[2020-02-24] MEDS ORDERED: Naloxone 0.4 MG/ML INJ IVP PRN (07:35)
[2020-02-24] MEDS ORDERED: Mag Hydrox/Al Hydrox/Simeth 30 ML UDC PO PRN (07:35)
[2020-02-24] MEDS ORDERED: MOM Conc 10 ML UD.LIQ PO PRN (07:35)
[2020-02-24] MEDS ORDERED: Ketorolac 30 MG/ML VIAL IVP ONE (08:13)
[2020-02-24] MEDS: 0.9 % Sodium Chloride 1,000 ML IVC SCH ×2 (08:48→16:55)
[2020-02-24] MEDS: Ertapenem 1,000 MG in 0.9 % Sodium Chloride Mini Bag 100 ML IVPB SCH (08:59)
[2020-02-24 17:54] LABS: Acinetobacter baumannii by PCR Not Detected (Not Detect); Candida albicans by PCR Not Detected (Not Detect); Candida glabrata by PCR Not Detected (Not Detect); Candida krusei by PCR Not Detected (Not Detect); Candida parapsilosis by PCR Not Detected (Not Detect); Candida tropicalis by PCR Not Detected (Not Detect); Enterobacter cloacae Cmplx PCR Not Detected (Not Detect); Enterococcus by PCR Not Detected (Not Detect); Escherichia coli by PCR DETECTED (Not Detect); Klebsiella oxytoca by PCR Not Detected (Not Detect); Klebsiella pneumoniae by PCR Not Detected (Not Detect); Proteus by PCR Not Detected (Not Detect); Pseudomonas aeruginosa by PCR Not Detected (Not Detect); Serratia marcescens by PCR Not Detected (Not Detect); Staphylococcus aureus by PCR Not Detected (Not Detect); Staphylococcus by PCR Not Detected (Not Detect); Streptococcus agalactiae(B)PCR Not Detected (Not Detect); Streptococcus by PCR Not Detected (Not Detect); Streptococcus pneumoniae PCR Not Detected (Not Detect); Streptococcus pyogenes (A) PCR Not Detected (Not Detect); blaKPC Carbapenem-Resist Gene Not Detected (Not Detect)
[2020-02-24] MEDS: *HR* HYDROcodone/Acet 5/325 mg TABLET PO PRN (20:25)
[2020-02-24] MEDS: Acetaminophen 325 MG TABLET PO PRN (20:25)
[2020-02-25] MEDS: Acetaminophen 325 MG TABLET PO PRN ×3 (04:40→19:51)
[2020-02-25 04:54] LABS: White Blood Count 10.1 K/mcL (4.3-11.1)
[2020-02-25 04:55] LABS: Hematocrit 31.7 % (35.3-44.9); Hemoglobin 10.1 g/dL (11.5-15.4); Immature Platelets 5.4 % (1.1-6.1); Mean Corpuscular HGB Conc 31.9 g/dL (31.6-35.5); Mean Corpuscular Hemoglobin 30.4 pg (28.0-33.3); Mean Corpuscular Volume 95.5 fL (83.0-100.0); Mean Platelet Volume 11.1 fL (9.4-12.4); Red Blood Count 3.32 M/mcL (3.82-4.97); Red Cell Distribution Width 15.1 % (11.5-14.5)
[2020-02-25 05:14] LABS: BUN/Creatinine Ratio 19 (6-26); Blood Urea Nitrogen 16 mg/dL (8-23); Calcium 8.6 mg/dL (8.6-10.3); Carbon Dioxide 21 mEq/L (23-29); Chloride 106 mEq/L (98-107); Glucose 104 mg/dL (70-105); Magnesium 1.7 mg/dL (1.6-2.6); Osmolality,Calculated 275 (280-300); Potassium 4.1 mEq/L (3.5-5.1); Sodium 132 mEq/L (136-145); eGFR For African Americans > 60 (> 60); eGFR For Non-African Americans > 60 (> 60)
[2020-02-25] MEDS: *HR* Enoxaparin 40 MG/0.4 ML SYRINGE SQ SCH (05:25)
[2020-02-25] MEDS: Morphine Sulfate Immed Rel 15 MG TABLET PO PRN (05:32)
[2020-02-25] MEDS: Aspirin Enteric Coated 81 MG Tablet PO SCH (08:49)
[2020-02-25] MEDS: BuPROPion XL (24 HR) 150 MG TABLET PO SCH (08:49)
[2020-02-25] MEDS: amLODIPine 5 MG TABLET PO SCH (08:49)
[2020-02-25] MEDS: Isosorbide MONOnitrate (24 HR) 30 MG TAB.ER.24H PO SCH (08:53)
[2020-02-25] MEDS: Cholecalciferol (D-3) 1,000 UNIT (25MCG) TABLET PO SCH (08:53)
[2020-02-25] MEDS: Ertapenem 1,000 MG in 0.9 % Sodium Chloride Mini Bag 100 ML IVPB SCH (08:54)
[2020-02-25] MEDS: Tiotropium 18 MCG inhalation IH SCH (09:52)
[2020-02-25] MEDS: 0.9 % Sodium Chloride 1,000 ML IVC SCH (15:58)
[2020-02-25] MEDS: Famotidine 20 MG TABLET PO SCH (16:58)
[2020-02-25] MEDS: *HR* HYDROcodone/Acet 5/325 mg TABLET PO PRN (19:50)
[2020-02-26 04:41] LABS: Basophils % 0.4 %; Eosinophils # 0.1 K/mcL (0.0-0.6); Eosinophils % 1.2 %; Hematocrit 31.4 % (35.3-44.9); Immature Granulocytes % 0.4 % (0-4); Lymphocytes # 1.2 K/mcL (0.6-4.6); Lymphocytes % 21.3 %; Mean Corpuscular HGB Conc 31.8 g/dL (31.6-35.5); Mean Corpuscular Hemoglobin 31.2 pg (28.0-33.3); Mean Corpuscular Volume 97.8 fL (83.0-100.0); Mean Platelet Volume 11.5 fL (9.4-12.4); Monocytes # 0.5 K/mcL (0.0-1.3); Monocytes % 7.9 %; Neutrophils # 3.9 K/mcL (1.6-8.9); Platelet Count 134 K/mcL (140-400); Red Blood Count 3.21 M/mcL (3.82-4.97); Red Cell Distribution Width 15.2 % (11.5-14.5); Segmented Neutrophils % 68.8 %; White Blood Count 5.7 K/mcL (4.3-11.1)
[2020-02-26 05:03] LABS: BUN/Creatinine Ratio 14 (6-26); Blood Urea Nitrogen 11 mg/dL (8-23); Calcium 8.6 mg/dL (8.6-10.3); Carbon Dioxide 22 mEq/L (23-29); Chloride 108 mEq/L (98-107); Glucose 104 mg/dL (70-105); Magnesium 1.8 mg/dL (1.6-2.6); Osmolality,Calculated 276 (280-300); Potassium 4.6 mEq/L (3.5-5.1); Sodium 133 mEq/L (136-145); eGFR For African Americans > 60 (> 60); eGFR For Non-African Americans > 60 (> 60)
[2020-02-26] MEDS: *HR* Enoxaparin 40 MG/0.4 ML SYRINGE SQ SCH (05:42)
[2020-02-26] MEDS: 0.9 % Sodium Chloride 1,000 ML IVC SCH ×2 (05:42→17:45)
[2020-02-26] MEDS: Acetaminophen 325 MG TABLET PO PRN (05:55)
[2020-02-26] MEDS: *HR* HYDROcodone/Acet 5/325 mg TABLET PO PRN ×2 (06:52→23:34)
[2020-02-26] MEDS: Ertapenem 1,000 MG in 0.9 % Sodium Chloride Mini Bag 100 ML IVPB SCH (07:54)
[2020-02-26] MEDS: amLODIPine 5 MG TABLET PO SCH (07:55)
[2020-02-26] MEDS: Aspirin Enteric Coated 81 MG Tablet PO SCH (07:55)
[2020-02-26] MEDS: Cholecalciferol (D-3) 1,000 UNIT (25MCG) TABLET PO SCH (07:55)
[2020-02-26] MEDS: Morphine Sulfate Immed Rel 15 MG TABLET PO PRN ×2 (07:56→17:43)
[2020-02-26] MEDS: Isosorbide MONOnitrate (24 HR) 30 MG TAB.ER.24H PO SCH (07:56)
[2020-02-26] MEDS: BuPROPion XL (24 HR) 150 MG TABLET PO SCH (07:56)
[2020-02-26] MEDS ORDERED: Piperacillin/Tazobactam 3.375 GM in 0.9 % Sodium Chloride Mini Bag 100 ML IVPB SCH (08:22)
[2020-02-26] MEDS: Tiotropium 18 MCG inhalation IH SCH (10:00)
[2020-02-26] MEDS: Famotidine 20 MG TABLET PO SCH (17:43)
[2020-02-27] MEDS: *HR* Enoxaparin 40 MG/0.4 ML SYRINGE SQ SCH (05:25)
[2020-02-27] MEDS: 0.9 % Sodium Chloride 1,000 ML IVC SCH ×3 (05:25→14:52)
[2020-02-27] MEDS: BuPROPion XL (24 HR) 150 MG TABLET PO SCH (08:08)
[2020-02-27] MEDS: Cholecalciferol (D-3) 1,000 UNIT (25MCG) TABLET PO SCH (08:08)
[2020-02-27] MEDS: amLODIPine 5 MG TABLET PO SCH (08:08)
[2020-02-27] MEDS: Aspirin Enteric Coated 81 MG Tablet PO SCH (08:08)
[2020-02-27] MEDS: Isosorbide MONOnitrate (24 HR) 30 MG TAB.ER.24H PO SCH (08:08)
[2020-02-27] MEDS: Ertapenem 1,000 MG in 0.9 % Sodium Chloride Mini Bag 100 ML IVPB SCH (08:09)
[2020-02-27 08:53] LABS: Basophils % 0.6 %; Eosinophils # 0.2 K/mcL (0.0-0.6); Hematocrit 31.5 % (35.3-44.9); Immature Granulocytes % 0.2 % (0-4); Lymphocytes # 1.4 K/mcL (0.6-4.6); Lymphocytes % 27.4 %; Mean Corpuscular HGB Conc 31.7 g/dL (31.6-35.5); Mean Corpuscular Hemoglobin 30.5 pg (28.0-33.3); Mean Platelet Volume 10.8 fL (9.4-12.4); Monocytes # 0.6 K/mcL (0.0-1.3); Monocytes % 11.3 %; Neutrophils # 2.9 K/mcL (1.6-8.9); Platelet Count 150 K/mcL (140-400); Red Blood Count 3.28 M/mcL (3.82-4.97); Red Cell Distribution Width 14.9 % (11.5-14.5); Segmented Neutrophils % 57.5 %
[2020-02-27 09:12] LABS: BUN/Creatinine Ratio 11 (6-26); Blood Urea Nitrogen 7 mg/dL (8-23); Carbon Dioxide 25 mEq/L (23-29); Chloride 107 mEq/L (98-107); Glucose 102 mg/dL (70-105); Magnesium 1.8 mg/dL (1.6-2.6); Osmolality,Calculated 284 (280-300); Phosphorous 2.3 mg/dL (2.7-4.5); Potassium 3.9 mEq/L (3.5-5.1); Sodium 138 mEq/L (136-145); eGFR For African Americans > 60 (> 60); eGFR For Non-African Americans > 60 (> 60)
[2020-02-27] MEDS: Tiotropium 18 MCG inhalation IH SCH (09:58)
[2020-02-27] MEDS: *HR* HYDROcodone/Acet 5/325 mg TABLET PO PRN ×2 (09:58→22:02)
[2020-02-27] MEDS: Famotidine 20 MG TABLET PO SCH (17:03)
[2020-02-28] MEDS: 0.9 % Sodium Chloride 1,000 ML IVC SCH ×2 (00:57→11:02)
[2020-02-28] MEDS: Acetaminophen 325 MG TABLET PO PRN (04:12)
[2020-02-28] MEDS: *HR* Enoxaparin 40 MG/0.4 ML SYRINGE SQ SCH (05:13)
[2020-02-28 07:07] VITALS: BP 135/83
[2020-02-28] MEDS: Ertapenem 1,000 MG in 0.9 % Sodium Chloride Mini Bag 100 ML IVPB SCH (07:36)
[2020-02-28] MEDS: Isosorbide MONOnitrate (24 HR) 30 MG TAB.ER.24H PO SCH (07:37)
[2020-02-28] MEDS: Aspirin Enteric Coated 81 MG Tablet PO SCH (07:37)
[2020-02-28] MEDS: amLODIPine 5 MG TABLET PO SCH (07:37)
[2020-02-28] MEDS: BuPROPion XL (24 HR) 150 MG TABLET PO SCH (07:37)
[2020-02-28] MEDS: Cholecalciferol (D-3) 1,000 UNIT (25MCG) TABLET PO SCH (07:38)
[2020-02-28] MEDS: Tiotropium 18 MCG inhalation IH SCH (07:45)
[2020-02-28 08:51] LABS: Basophils % 0.7 %; Eosinophils # 0.2 K/mcL (0.0-0.6); Eosinophils % 4.7 %; Hematocrit 29.2 % (35.3-44.9); Hemoglobin 9.4 g/dL (11.5-15.4); Immature Granulocytes % 0.2 % (0-4); Lymphocytes # 1.2 K/mcL (0.6-4.6); Lymphocytes % 28.1 %; Mean Corpuscular HGB Conc 32.2 g/dL (31.6-35.5); Mean Corpuscular Hemoglobin 31.1 pg (28.0-33.3); Mean Corpuscular Volume 96.7 fL (83.0-100.0); Mean Platelet Volume 10.4 fL (9.4-12.4); Monocytes # 0.6 K/mcL (0.0-1.3); Monocytes % 13.2 %; Neutrophils # 2.3 K/mcL (1.6-8.9); Platelet Count 186 K/mcL (140-400); Red Blood Count 3.02 M/mcL (3.82-4.97); Red Cell Distribution Width 14.8 % (11.5-14.5); Segmented Neutrophils % 53.1 %; White Blood Count 4.2 K/mcL (4.3-11.1)
[2020-02-28 09:25] LABS: BUN/Creatinine Ratio 8 (6-26); Blood Urea Nitrogen 5 mg/dL (8-23); Calcium 7.2 mg/dL (8.6-10.3); Carbon Dioxide 26 mEq/L (23-29); Chloride 112 mEq/L (98-107); Glucose 78 mg/dL (70-105); Magnesium 1.4 mg/dL (1.6-2.6); Osmolality,Calculated 298 (280-300); Phosphorous 1.3 mg/dL (2.7-4.5); Potassium 2.9 mEq/L (3.5-5.1); Sodium 146 mEq/L (136-145); eGFR For African Americans > 60 (> 60); eGFR For Non-African Americans > 60 (> 60)
== END 2020-02-28 13:48 | disposition home or self-care (01) | DRG 720 ==
LOC: 3ANU 02:44 → EMEROOARM 02:44 → 3NENU 06:11 → SUATTDRO 19:08 → 3ANU 02-26 16:20
PROVIDERS: ADMIT Student in an Organized Health Care Education/Training Program; ATTEND Internal Medicine